=== PATIENT | male | born 1940 | race Caucasian/White ===

== ENCOUNTER 2017-12-21 04:18 | Inpatient (IN) | payer OTHER ==
[~2017-12-21] VITALS: Ht 160 cm; Wt 76.0 kg
[2017-12-21] VITALS (9 sets, daily range): BP systolic 78–130; BP diastolic 50–77; PULSE 50–94; TEMP 36.5–36.9; O2SAT 90–100; BMI 28.9
[2017-12-21] MEDS ORDERED: ONDANSETRON INJ 2 MG/ML 2 ML VIAL IV PRN (05:00)
[2017-12-21] MEDS ORDERED: ACETAMINOPHEN 325 MG TAB PO PRN (05:00)
[2017-12-21] MEDS ORDERED: POLYETHYLENE (MIRALAX) 17 GM PACK PO PRN (05:00)
[2017-12-21] MEDS ORDERED: SODIUM CHLORIDE 0.9% 1000ML 1,000 ML IV SCH (05:45)
[2017-12-21] MEDS ORDERED: PANT40TA PO (05:54)
[2017-12-21] MEDS ORDERED: CLON0.2T PO (05:54)
[2017-12-21] MEDS ORDERED: ALBINS/ INH (05:54)
[2017-12-21] MEDS ORDERED: PRAV80TA2 PO (05:54)
[2017-12-21] MEDS ORDERED: ASPEC81 PO (05:54)
[2017-12-21] MEDS ORDERED: ALBU18002 INH (05:54)
[2017-12-21] MEDS ORDERED: NVLGIPEN SQ (05:54)
[2017-12-21] MEDS ORDERED: CARV12.52 PO (05:54)
[2017-12-21] MEDS ORDERED: TORS10TA14 PO (05:54)
[2017-12-21] MEDS ORDERED: GLUCOSE 40% GEL 15 GM TUBE PO PRN (06:00)
[2017-12-21] MEDS ORDERED: GLUCOSE 10 TABS/TUBE PO PRN (06:00)
[2017-12-21] MEDS ORDERED: DEXTROSE 50% 50 ML SYR IV PRN (06:00)
[2017-12-21] MEDS ORDERED: PANTOprazole INJ 80 MG in DEXTROSE 5% 100ML IV SCH (06:00)
[2017-12-21] MEDS ORDERED: GLUCAGON FOR INJ 1 MG VIAL SQ PRN (06:00)
[2017-12-21] MEDS: PANTOprazole INJ 40 MG in DEXTROSE 5% 100ML IV SCH ×4 (06:03→21:09)
--- NOTE | 2017-12-21 06:31 | History and Physical ---
History & Physical Date & Time of Service: Dec 21, 2017 at 06:07 Chief Complaint: Gi Bleed Primary Care Physician: Robby Stearns M.D. History of Present Illness Source: patient, clinic records, hospital records The patient is a 77-year-old male who presented to the ER ([facility]) with rectal bleeding. He denies any abdominal pain, nausea, or chest pain. He does report some worsening shortness of breath and recently underwent an echocardiogram as outpatient revealing an EF of 60-64%, grade 1 diastolic dysfunction, P AP of 36 mmHg. He reports becoming more dependent on oxygen over the last 3 weeks and is currently using 2 L per nasal cannula. He reports dizziness and lightheadedness as well as generalized weakness and malaise over the past 2-3 weeks. He has a history of pulmonary fibrosis and has been on high -dose steroids chronically. He is currently not taking any steroids. He takes baby aspirin every day but denies other blood thinners. He denies any current change in appetite. Earlier this evening he and his son had a large dinner and when he was saying goodbye he felt the urge to have a large bowel movement he reports being incontinent of bloody stool in the stool did have large clots in it and was mixed dark and bright red blood. He has reported some loose stools once daily for the past 3 weeks but denies chery diarrhea. He reports a history of esophageal bleeding 30 years ago and reports a history of hiatal hernia for which he is on protonix daily. He was recently admitted to [facility] from 10/30-10 15 new onset diabetes that is a result of chronic steroid use. He denies alcohol use. Vital signs in the ER were blood pressure 132/81 with a pulse 92, respirations 87% on 3 L nasal cannula, afebrile. The patient reports he reports occasional chills which are unchanged. He reports more continuous oxygen needs where he was only on it when he ambulated 3-4 weeks ago. His bilingual instructor is Dr. Stearns in [place] his primary care doctor is Dr. Stearns at [facility]. 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 Social History Smoking Status: Former Smoker (30 years ago) Smokeless Tobacco Use: Unknown Alcohol Use: none Drug Use: none Marital Status: Housing status: lives with significant other Occupational Status: retired Immunizations History of Influenza Vaccine: Yes Influenza Vaccine Date: Jul 17, 2017 History of Tetanus Vaccine?: Unknown History of Pneumococcal: Yes Pneumococcal Date: Jun 26, 2016 History of Hepatitis B Vaccine: Unknown Allergies Coded Allergies: Penicillins (Verified Allergy, Unknown, BLISTERS, 12/21/17) Home Medications Scheduled Aspirin (Aspirin EC Low Dose), 81 MG PO DAILY Carvedilol (Coreg), 12.5 MG PO BID Clonidine Hcl (Catapres), 1 TAB PO BID Insulin Aspart (Novolog Flexpen), 0 SQ UD Pantoprazole (Protonix), 40 MG PO DAILY Pravastatin Sodium (Pravastatin Sodium), 80 MG PO DAILY Torsemide (Demadex), 10 MG PO DAILY Scheduled PRN Albuterol Sulf (Proventil 0.083% 2.5MG/3ML), 2.5 MG INH Q4H PRN for sob/wheezing Albuterol Sulfate (Proair Respiclick), 2 PUFFS INH QID PRN for sob/wheezing Review of Systems At least 10 systems were reviewed and negative except as indicated in HPI. Physical Exam Vital Signs Date Time Temp Pulse Resp B/P (MAP) Pulse Ox O2 Delivery O2 Flow Rate FiO2 12/21/17 05:20 69 105/77 (86) 81 88/61 (70) 94 78/50 (59) 12/21/17 04:40 36.9 70 18 118/77 99 Nasal Cannula 2.0 General Appearance: WD/WN, no apparent distress Head: normocephalic, atraumatic Eyes: normal inspection, PERRL, sclerae normal ENT: hearing grossly normal, pharynx normal, + pertinent finding (Mouth appears dry) Neck: supple, no JVD, trachea midline Respiratory/Chest: lungs clear, normal breath sounds, no respiratory distress, no accessory muscle use Cardiovascular: regular rate, rhythm, no edema, no gallop, no JVD, no murmur, normal peripheral pulses Abdomen/GI: normal bowel sounds, non tender, soft, no organomegaly, + pertinent finding (Nondistended) Extremities/Musculoskelatal: normal inspection, no calf tenderness, no pedal edema, normal range of motion 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 1. Acute GI bleeding-patient is orthostatic, was recently on high-dose prednisone chronically, and has weakness and dizziness. Bright red blood more consistent with lower GI bleed however, as a result of these symptoms he was placed on Protonix drip as a precaution. GI consulted. Aspirin, BB, clonidine , and diuretics held. No coagulopathy on lab work. Platelets within normal levels. He consents to blood if needed, CBC in a.m. 1 L IV fluids ordered. Of note patient reports a history of esophageal bleeding 30 years ago and history of hiatal hernia. 2. Shortness of breath in setting of interstitial lung disease-requiring more continuous oxygen use. Chronic coughing, chest x-ray pending. Continue management per outpatient pulmonology. Recent outpatient echo was unremarkable. 3. Steroid-induced diabetes-continue insulin sliding scale with carb coverage while hospitalized 4. Leukocytosis-likely related to recent steroid use. 5. Hypertension-medications held as above in setting of bleed and orthostatic hypotension 6. CKD stage III-at baseline DVT prophylaxis-contraindicated in setting of bleed, SCDs Full code as discussed patient on admission Dis[facility] Advanced Directives Existing Living Will: Yes Existing Power of Console Assembler: Yes Resuscitation Status VTE Prophylaxis Will order VTE Prophylaxis: No Reason for no VTE drug order: Contraindicated Reason no Mechanical VTE Order: Contraindicated
[2017-12-21 06:38] LABS: HEMATOCRIT 32.3 % (42-52); HEMOGLOBIN 10.7 g/dL (14.0-18.0); MEAN CELL VOLUME 99.7 fL (80-100); MEAN CORPUSCULAR HGB CONC 33.1 g/dl (32-36); PLATELET COUNT 260 K/uL (130-400); RED CELL DISTRIBUTION WIDTH CV 16.8 % (11.5-14.5); RED CELL DISTRIBUTION WIDTH SD 60.6 fL (36.4-46.3); WHITE BLOOD COUNT 21.32 K/uL (4.8-10.8)
[2017-12-21 06:55] LABS: CALCIUM 8.5 mg/dl (8.5-10.1); CREATININE 1.59 mg/dl (0.60-1.40); POTASSIUM 4.1 mmol/L (3.5-5.1)
[2017-12-21] MEDS: INSULIN ASPART 100 UNITS/ML 3 ML PEN SC SCH ×4 (07:38→20:14)
[2017-12-21 07:45] LABS: BASO % 0.1 %; BASO ABS # 0.03 K/uL (0-0.2); EOS % 1.3 %; EOS ABS # 0.27 K/uL (0-0.5); IG# 0.34 K/uL (0.00-0.02); LYMPH % 35.3 %; LYMPH ABS # 7.53 K/uL (1.2-3.4); MONO % 10.2 %; MONO ABS # 2.17 K/uL (0.11-0.59); NEUT % 51.5 %; NEUT ABS # 10.98 K/uL (1.4-6.5)
--- NOTE | 2017-12-21 08:15 | DIAGNOSTIC IMAGING REPORT ---
ABDOMEN 2VIEW W/PA CHEST RTN CLINICAL HISTORY: recent GI bleed, hypoxia in setting of ILD pain. Nausea. COMPARISON STUDY: None FINDINGS: Diffuse interstitial changes in the mid to lower lung regions bilaterally. In the absence of prior studies for comparison this is of uncertain chronicity. Pulmonary apices are clear. Bowel pattern suggests a nonobstructive ileus. Moderate amount of fecal material is identified within the colon. IMPRESSION: 1. Nonobstructive ileus. 2. Nonspecific interstitial change in the mid to lower lung regions bilaterally. This may be chronic or inflammatory. Prior study is not available for comparison. The above report was generated using voice recognition software. It may contain grammatical, syntax or spelling errors. Electronically signed by: Manuel Campbell M.D. 12/21/2017 8:14 AM Dictated Date/Time: 12/21/2017 8:11 AM
--- NOTE | 2017-12-21 09:55 | Gastrointestinal Consultation ---
Gastrointestinal Consultation Date of Consultation: Dec 21, 2017 Attending Physician: Dr. Cuadra Consulting Physician: Dr. Hernandez Reason for Consultation: Bright red blood per rectum History of Present Illness Patient is a 77 year old male with a hx of pulmonary fibrosis, on home O2 for chronic hypoxic respiratory failure. He also carries a hx of CKD-3, arotic stenosis, CVD, HTN, obesity and steroid induced DM. He was transferred here from the [facility] with rectal bleeding. He also reports worsening SOB over the past few weeks. The patient tells me that he has been SOB for the past month and [facility]. He was discharged around Nov 21. He continued getting weaker and was working with his PCP attempting to wean off prednisone though having difficulty due to the weakness. Just yesterday, he finished his last dose of prednisone. After eating supper, he felt crampy and was incontinent of a large BM consisting mostly (95%) of liquid red blood. He was taken by ambulance to the [place] ED and he was transferred here (no available beds at [place]). The pt tells me that, at [facility], he experienced about 4 more BMs consisting of the bright red blood in the ED there. He has not had more since arriving here, though he is passing more flatus than usual. He had cramping yesterday that has resolved today. He denies any significant abdominal pain. On arrival, Hb was 10.7, BUN 42 Cr 1.59. We do not have recent prior labs to compare. Abd/chest x-ray with a non obstructive ileus and a moderate amt of colonic fecal retention. 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 Partial right lower lobe lung lobectomy. Oct 2017 2. Carotid artery stent 15 yrs ago. 3. Right kidney stent. 4. 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 Social History Smoking Status: Former Smoker (30 years ago) Drug Use: none Marital Status: Occupation Status: retired Allergies Coded Allergies: Penicillins (Verified Allergy, Unknown, BLISTERS, 12/21/17) Current Medications Home Meds and Scripts Medications Dose Route/Sig Max Daily Dose Days Date Category Dose Instructions Demadex (Torsemide) 10 Mg Tab 10 Mg PO DAILY 12/21/17 Reported Pravastatin Sodium 80 Mg Tab 80 Mg PO DAILY 30 12/21/17 Reported Protonix (Pantoprazole Sodium) 40 Mg Tab 40 Mg PO DAILY 12/21/17 Reported Novolog Flexpen (Insulin Aspart) 100 Units/Ml Inj 0 SQ UD 12/21/17 Reported per sliding scale Catapres (Clonidine Hcl) 0.2 Mg Tab 1 Tab PO BID 30 12/21/17 Reported Coreg (Carvedilol) 12.5 Mg Tab 12.5 Mg PO BID 90 12/21/17 Reported Aspirin EC Low Dose (Aspirin) 81 Mg Ectab 81 Mg PO DAILY 12/21/17 Reported Proventil 0.083% 2.5MG/3ML (Albuterol Sulf) 2.5 Mg/3 Ml Nebu 2.5 Mg INH Q4H PRN 12/21/17 Reported Proair Respiclick (Albuterol Sulfate) 108 Mcg/Act Aer 2 Puffs INH QID PRN 12/21/17 Reported Review of Systems Constitutional: + weakness, No fever, No chills, No sweats, No weight loss Eyes: No eye pain, No redness ENT: No sore throat, No trouble swallowing, No pain on swallowing Respiratory: No cough, No wheezing, No shortness of breath, No dyspnea on exertion Cardiac: No chest pain, No edema, No palpitations Abdomen: + see HPI, + pain (mild, diffuse cramping), + diarrhea (loose stools/ one a day x 1 month; liquid bloody BMs since yesterday), No nausea, No vomiting Male : No dysuria Neuro: No memory loss, No weakness, No numbness/tingling, No vertigo, No balance problems Psych: No depression symptoms, No anxiety, No insomnia Heme: No abnormal bleeding/bruising, No night sweats Endo: No excessive thirst, No excessive urination Skin: No rash, No itch, No new/changing skin lesions, No jaundice Physical Exam Date Time Temp Pulse Resp B/P (MAP) Pulse Ox O2 Delivery O2 Flow Rate FiO2 12/21/17 08:02 36.6 57 16 109/66 (80) 100 Nasal Cannula 3.0 50 97/59 (72) 12/21/17 05:20 69 105/77 (86) 81 88/61 (70) 94 78/50 (59) 12/21/17 04:40 36.9 70 18 118/77 99 Nasal Cannula 2.0 General Appearance: no apparent distress Eyes: normal inspection, EOMI Neck: supple, no adenopathy, thyroid normal Respiratory/Chest: chest non-tender, no accessory muscle use, + crackles ( bilat lower ) Cardiovascular: regular rate, rhythm, no JVD, no murmur Abdomen: normal bowel sounds, non tender, soft, no organomegaly Extremities: normal inspection, no pedal edema, normal capillary refill Neurologic/Psych: alert, normal mood/affect, oriented x 3 Skin: normal color, no jaundice, warm/dry, no rash Laboratory Results Last 24 Hours Test 12/21/17 06:19 White Blood Count 21.32 K/uL Red Blood Count 3.24 M/uL Hemoglobin 10.7 g/dL Hematocrit 32.3 % Mean Corpuscular Volume 99.7 fL Mean Corpuscular Hemoglobin 33.0 pg Mean Corpuscular Hemoglobin Concent 33.1 g/dl Platelet Count 260 K/uL Mean Platelet Volume 10.0 fL Neutrophils (%) (Auto) 51.5 % Lymphocytes (%) (Auto) 35.3 % Monocytes (%) (Auto) 10.2 % Eosinophils (%) (Auto) 1.3 % Basophils (%) (Auto) 0.1 % Neutrophils # (Auto) 10.98 K/uL Lymphocytes # (Auto) 7.53 K/uL Monocytes # (Auto) 2.17 K/uL Eosinophils # (Auto) 0.27 K/uL Basophils # (Auto) 0.03 K/uL RDW Standard Deviation 60.6 fL RDW Coefficient of Variation 16.8 % Immature Granulocyte % (Auto) 1.6 % Immature Granulocyte # (Auto) 0.34 K/uL Hypersegmented Polys OCCASIONAL Smudge Cells PRESENT [facility] Bodies OCCASIONAL Sodium Level 137 mmol/L Potassium Level 4.1 mmol/L Chloride Level 103 mmol/L Carbon Dioxide Level 27 mmol/L Anion Gap 7.0 mmol/L Blood Urea Nitrogen 42 mg/dl Creatinine 1.59 mg/dl Est Creatinine Clear Calc Drug Dose 34.0 ml/min Estimated GFR () 47.2 Estimated GFR (Non- 40.7 BUN/Creatinine Ratio 26.5 Bedside Glucose 180 mg/dl Random Glucose 192 mg/dl Calcium Level 8.5 mg/dl Impression Patient is a 77 year old male with (fairly) painless rectal bleeding, suggestive of diverticular bleeding. Plan 1. Will plan for colonoscopy tomorrow, if no contraindications due to comorbidities (WBC is high but he has been on steroids). I saw and evaluated the patient with Ms Terrazas. The patient is somewhat of a poor historian but able to tell me that he developed acute onset hematochezia yesterday. He did have several episodes of cramping. His last episode of hematochezia was early this morning prior to transfer from [facility]. He denies having fevers chills or sweats. He reports his last colonoscopy was done 18 or 20 years ago. Physical examination No obvious distress, expiratory wheezes and crackles heard Abdomen: Mild left lower quadrant tenderness Impression/Recomendations: Patient presenting with several episodes of hematochezia which seems to have abated since admission. Based on the constellation of symptoms I would wonder about ischemic colitis or perhaps a diverticular hemorrhage. To further evaluate this I would suggest a CT of the abdomen to evaluate for colonic wall thickening, stool for C. difficile and culture. I would also suggest empiric coverage with antibiotics as his white blood cell count is over 20,000. Depending on these results we will likely recommend an outpatient colonoscopy in 4-6 weeks.
[2017-12-21] MEDS ORDERED: ALBUTEROL HFA INHALER 8.5 GM INH PRN (11:00)
[2017-12-21] MEDS ORDERED: OPTIRAY 320 IV PRN (11:30)
[2017-12-21] MEDS: METRONIDAZOLE / NSS 500 MG in PREMIXED NSS 100 ML IV SCH ×2 (12:29→20:21)
--- NOTE | 2017-12-21 13:41 | Progress Note ---
Internal Med Progress Note Date of Service: Dec 21, 2017. Provider Documentation: SUBJECTIVE: The patient was seen and examined He was [facility] with rectal bleeding that has been going on for 2 days He does not have any complaint of epigastric pain and no nausea vomiting. He has been feeling reasonably better since admission He did not have any more episode of rectal bleeding in the hospital. OBJECTIVE: Vital Signs-as noted below Exam: General-no apparent distress Eyes-normal ENT-normal Neck-supple Lungs-decreased breath sounds with fine crackles at the bases Heart-regular' no murmur appreciated Abdomen-benign, mildly tender lower quadrants, bowel sounds present. Extremities-no edema Neuro-alert awake oriented 3. No focal sensory or motor deficit appreciated Lab data as noted below. ASSESSMENT & PLAN: 77-year-old female presents with rectal bleeding. Acute GI bleeding- -admitted to telemetry unit. Remains hemodynamically stable. -Noted to have orthostasis on admission, was recently on high-dose prednisone chronically, and has weakness and dizziness. -Bright red blood more consistent with lower GI bleed however, as a result of these symptoms he was placed on Protonix drip as a precaution. -GI consulted-appreciate input. - Aspirin is on hold. -Of note patient reports a history of esophageal bleeding 30 years ago and history of hiatal hernia. -Clinically better this morning. Hemoglobin remains stable-. Colonoscopy tomorrow. Shortness of breath in setting of interstitial lung disease-requiring more continuous oxygen use. May be contributed by recent decrease in prednisone. Chronic coughing, chest x-ray did not show any evidence of pneumonia and/or CHF. Continue management per outpatient pulmonology. Recent outpatient echo was unremarkable. Steroid-induced diabetes- -continue insulin sliding scale with carb coverage while hospitalized Leukocytosis-likely related to recent steroid use. No evidence of infection. Hypertension-medications held as above in setting of bleed and orthostatic hypotension CKD stage III-at baseline monitor DVT prophylaxis-contraindicated in setting of bleed, SCDs Full code as discussed patient on admission Disposition-telemetry Vital Signs: Date Time Temp Pulse Resp B/P (MAP) Pulse Ox O2 Delivery O2 Flow Rate FiO2 12/21/17 12:02 36.5 64 18 108/62 (77) 95 Nasal Cannula 3.0 64 12/21/17 12:00 Nasal Cannula 2.0 3/12/18 08:02 36.6 57 16 109/66 (80) 100 Nasal Cannula 3.0 50 97/59 (72) 12/21/17 08:00 Nasal Cannula 2.0 12/21/17 05:20 69 105/77 (86) 81 88/61 (70) 94 78/50 (59) 12/21/17 04:40 36.9 70 18 118/77 99 Nasal Cannula 2.0 Lab Results: Results Past 24 Hours Test 12/21/17 06:19 12/21/17 10:58 Range/Units White Blood Count 21.32 4.8-10.8 K/uL Red Blood Count 3.24 4.7-6.1 M/uL Hemoglobin 10.7 14.0-18.0 g/dL Hematocrit 32.3 42-52 % Mean Corpuscular Volume 99.7 80-100 fL Mean Corpuscular Hemoglobin 33.0 25-34 pg Mean Corpuscular Hemoglobin Concent 33.1 32-36 g/dl Platelet Count 260 130-400 K/uL Mean Platelet Volume 10.0 7.4-10.4 fL Neutrophils (%) (Auto) 51.5 % Lymphocytes (%) (Auto) 35.3 % Monocytes (%) (Auto) 10.2 % Eosinophils (%) (Auto) 1.3 % Basophils (%) (Auto) 0.1 % Neutrophils # (Auto) 10.98 1.4-6.5 K/uL Lymphocytes # (Auto) 7.53 1.2-3.4 K/uL Monocytes # (Auto) 2.17 0.11-0.59 K/uL Eosinophils # (Auto) 0.27 0-0.5 K/uL Basophils # (Auto) 0.03 0-0.2 K/uL RDW Standard Deviation 60.6 36.4-46.3 fL RDW Coefficient of Variation 16.8 11.5-14.5 % Immature Granulocyte % (Auto) 1.6 % Immature Granulocyte # (Auto) 0.34 0.00-0.02 K/uL Hypersegmented Polys OCCASIONAL Smudge Cells PRESENT Blood Smear Review [facility] Bodies OCCASIONAL Sodium Level 137 136-145 mmol/L Potassium Level 4.1 3.5-5.1 mmol/L Chloride Level 103 98-107 mmol/L Carbon Dioxide Level 27 21-32 mmol/L Anion Gap 7.0 3-11 mmol/L Blood Urea Nitrogen 42 7-18 mg/dl Creatinine 1.59 0.60-1.40 mg/dl Est Creatinine Clear Calc Drug Dose 34.0 ml/min Estimated GFR () 47.2 Estimated GFR (Non- 40.7 BUN/Creatinine Ratio 26.5 10-20 Bedside Glucose 180 164 70-99 mg/dl Random Glucose 192 70-99 mg/dl Calcium Level 8.5 8.5-10.1 mg/dl
[2017-12-21] MEDS: CIPROFLOXACIN / D5W 400 MG in PREMIXED IN D5W 200 ML IV SCH ×2 (13:59→23:59)
--- NOTE | 2017-12-21 14:36 | DIAGNOSTIC IMAGING REPORT ---
CT SCAN OF THE ABDOMEN AND PELVIS WITH IV CONTRAST CLINICAL HISTORY: Rectal bleeding. COMPARISON STUDY: Abdominal radiographs dated 12/21/2017. TECHNIQUE: Following the IV administration of 94 cc of Optiray 320, CT scan of the abdomen and pelvis is performed from the lung bases to the proximal femora. Images are reviewed in the axial, sagittal, and coronal planes. IV contrast was administered without complication. A dose lowering technique was utilized adhering to the principles of ALARA. CT DOSE: 500.84 mGy.cm FINDINGS: Lung bases: The heart is enlarged and there is a small pericardial effusion. The coronary arteries are densely calcified. A tiny hiatal hernia is observed. Findings a chronic residual lung disease are present at both lung bases. There is subpleural reticulation with extensive groundglass change and traction bronchiectasis. No honeycombing is seen. No superimposed airspace consolidation or pleural effusion is identified. Postoperative changes seen in the right lower lobe. Pneumomediastinum is observed. Liver: The contrast-enhanced liver appears atrophic and heterogeneous in attenuation. There is nodularity of the hepatic surface contour suggesting changes of cirrhosis. There is no intrahepatic biliary ductal dilatation. The hepatic veins and portal veins are patent. Gallbladder: Unremarkable. Spleen: Not identified and presumed surgically absent. Pancreas: There is near complete fatty atrophy of the pancreas. Adrenal glands: Unremarkable. Kidneys: The contrast enhanced kidneys are atrophic and without hydronephrosis. The kidneys enhance symmetrically. Small nonobstructing calculi are noted in each kidney. Scattered renal cysts measure up to 1.6 cm. A stent is noted in the right renal artery. Abdominal vasculature: The abdominal aorta is normal in course and caliber noting moderate to advanced after sclerotic disease. Bowel: There is advanced colonic diverticulosis without CT evidence of acute diverticulitis. No bowel obstruction is seen. The appendix is well-visualized and normal. No colonic wall thickening or edema is identified. Peritoneum: There is no intraperitoneal free air or abdominal ascites. Lymphadenopathy: None. Pelvic viscera: The bladder, prostate, and seminal vesicles are normal as visualized. There is a small fat-containing left inguinal hernia. Skeletal structures: The skeletal structures are osteopenic. Mild lumbosacral spondylosis is observed. Sclerotic change is noted in the sacroiliac joints. No lytic or blastic lesions are seen. IMPRESSION: 1. Pneumomediastinum is identified in the lower chest. This is of indeterminant etiology and significance. 2. There are no acute infectious or inflammatory findings in the abdomen or pelvis. 3. Changes of chronic interstitial lung disease are seen at the lung bases. 4. Cardiomegaly and small pericardial effusion. 5. Advanced colonic diverticulosis without CT evidence of acute diverticulitis. 6. The appearance of the liver suggests early changes of cirrhosis. 7. The spleen is not identified and presumed surgically absent. 8. Small bilateral nonobstructing renal calculi. 9. Additional findings as above. Electronically signed by: Rodo Magallon M.D. 12/21/2017 2:35 PM Dictated Date/Time: 12/21/2017 2:26 PM
[2017-12-21] MEDS: PRAVASTATIN SOD 40 MG TAB PO SCH (17:24)
[2017-12-21] MEDS: CARVEDILOL 12.5 MG TAB PO SCH (20:20)
[2017-12-22] VITALS (10 sets, daily range): BP systolic 104–133; BP diastolic 60–83; PULSE 74–116; TEMP 36.8–37.1; O2SAT 91–99; Ht 160 cm; Wt 76.0 kg
[2017-12-22] MEDS: PANTOprazole INJ 40 MG in DEXTROSE 5% 100ML IV SCH ×5 (02:28→22:58)
[2017-12-22] MEDS: METRONIDAZOLE / NSS 500 MG in PREMIXED NSS 100 ML IV SCH ×3 (04:15→20:08)
[2017-12-22] MEDS: ALBUTEROL 0.083% NEBU SOLN 3 ML VIAL INH PRN (05:36)
[2017-12-22 05:48] LABS: HEMATOCRIT 31.8 % (42-52); HEMOGLOBIN 10.8 g/dL (14.0-18.0); MEAN CELL VOLUME 97.2 fL (80-100); MEAN PLATELET VOLUME 9.7 fL (7.4-10.4); PLATELET COUNT 261 K/uL (130-400); RED CELL DISTRIBUTION WIDTH CV 16.6 % (11.5-14.5); RED CELL DISTRIBUTION WIDTH SD 58.7 fL (36.4-46.3); WHITE BLOOD COUNT 25.02 K/uL (4.8-10.8)
[2017-12-22 06:37] LABS: CALCIUM 8.5 mg/dl (8.5-10.1); CREATININE 1.14 mg/dl (0.60-1.40); POTASSIUM 3.9 mmol/L (3.5-5.1)
[2017-12-22 06:38] LABS: PHOSPHORUS 2.3 mg/dl (2.5-4.9)
[2017-12-22] MEDS: CARVEDILOL 12.5 MG TAB PO SCH ×2 (08:55→20:13)
[2017-12-22] MEDS: INSULIN ASPART 100 UNITS/ML 3 ML PEN SC SCH ×4 (08:55→20:58)
--- NOTE | 2017-12-22 10:03 | Gastroenterology Progress Note ---
Progress Note Date of Service: Dec 22, 2017 Subjective Pt evaluation today including: conversation w/ patient, physical exam, chart review, lab review, review of studies, review of inpatient medication list Mr. Pelaez is a 77 yr old male with pulmonary fibrosis who was admitted on for rectal bleeding. Today, Hb 10.9, stable from yesterday (w/o transfusion). On brown BM this morning. Liquid, C-diff is pending. No abdominal pain. CT yesterday with diverticulosis, no diverticulitis. Review of Systems Constitutional: No fever ENT: No hearing loss Respiratory: + shortness of breath (chronic), No cough Cardiac: No chest pain Abdomen: + see HPI, + diarrhea, + GI bleeding (resolved), No pain, No nausea, No vomiting, No constipation Musculoskeletal: No joint pain Male : No dysuria Neuro: No memory loss Psych: No depression symptoms Heme: No abnormal bleeding/bruising Endo: No fatigue Skin: No rash Medications Current Inpatient Medications Medications (Trade) Dose Ordered Sig/Aure Route Start Time Stop Time Status Last Admin Dose Admin Acetaminophen (Tylenol Tab) 650 mg Q4H PRN PO 12/21/17 05:00 01/20/18 04:59 Ondansetron HCl (Zofran Inj) 4 mg Q6H PRN IV 12/21/17 05:00 01/20/18 04:59 Polyethylene (Miralax Powder Packet) 17 gm DAILY PRN PO 12/21/17 05:00 01/20/18 04:59 Pantoprazole Sodium 40 mg/ Dextrose 100 ml @ 20 mls/hr Q5H IV 12/21/17 06:15 01/20/18 06:14 12/22/17 07:07 20 MLS/HR Insulin Aspart (novoLOG ASPART) SLIDING SCALE If C... ACHS SC 12/21/17 07:00 01/20/18 06:59 12/21/17 17:26 3 UNITS Glucose (Glucose 40% Gel) 15-30 GRAMS 15 GRAMS... UD PRN PO 12/21/17 06:00 01/20/18 05:59 Glucose (Glucose Chew Tab) 4-8 Tablets 4 Tabl... UD PRN PO 12/21/17 06:00 01/20/18 05:59 Dextrose (Dextrose 50% 50ML Syringe) 25-50ML OF 50% DW IV FOR... UD PRN IV 12/21/17 06:00 01/20/18 05:59 Glucagon (Glucagon Inj) 1 mg UD PRN SQ 12/21/17 06:00 01/20/18 05:59 Pravastatin Sodium (Pravachol Tab) 80 mg DAILY@17 PO 12/21/17 17:00 01/20/18 16:59 12/21/17 17:24 80 MG Albuterol Sulfate (Ventolin 0.083% 2.5MG/3ML Neb) 2.5 mg Q4H PRN INH 12/21/17 10:45 01/20/18 10:44 12/22/17 05:36 2.5 MG Carvedilol (Coreg Tab) 12.5 mg BID PO 12/21/17 21:00 01/20/18 20:59 12/22/17 08:55 12.5 MG Albuterol (Proair Hfa) 2 puffs QID PRN INH 12/21/17 11:00 01/20/18 10:59 Ciprofloxacin/ Dextrose 400 mg/ Prmx 200 ml @ 100 mls/hr Q12H IV 12/21/17 12:00 12/31/17 11:59 12/21/17 23:59 100 MLS/HR Metronidazole 500 mg/Prmx 100 ml @ 100 mls/hr Q8H IV 12/21/17 12:00 12/31/17 11:59 12/22/17 04:15 100 MLS/HR Ioversol (Optiray 320) 125 ml UD PRN IV 12/21/17 11:30 12/25/17 11:29 Objective Vital Signs Date Time Temp Pulse Resp B/P (MAP) Pulse Ox O2 Delivery O2 Flow Rate FiO2 12/22/17 08:00 Nasal Cannula 12/22/17 07:44 37.1 91 22 133/71 (91) 98 Nasal Cannula 3.0 12/22/17 05:37 86 14 96 Nasal Cannula 3.0 12/22/17 04:14 36.8 77 24 123/72 (89) 98 Nasal Cannula 3.0 12/22/17 04:00 92 Room Air 12/22/17 00:01 92 Room Air 12/21/17 23:22 36.7 62 20 130/74 (92) 98 Nasal Cannula 4.0 12/21/17 20:00 92 Room Air 12/21/17 19:20 36.5 55 20 106/68 (81) 96 Nasal Cannula 3.0 12/21/17 16:00 92 Room Air 12/21/17 15:35 36.6 64 22 113/61 (78) 90 Nasal Cannula 3.0 12/21/17 12:02 36.5 64 18 108/62 (77) 95 Nasal Cannula 3.0 64 12/21/17 12:00 Nasal Cannula 2.0 Physical Exam General Appearance: no apparent distress ENT: pharynx normal Neck: thyroid normal, no JVD Respiratory/Chest: + crackles (few, fine at the bases) Cardiovascular: regular rate, rhythm, no JVD, no murmur Abdomen: non tender, soft Extremities: normal inspection, no pedal edema Neurologic/Psych: alert, normal mood/affect, oriented x 3 Skin: normal color, no jaundice Laboratory Results Last 24 Hours Test 12/21/17 10:58 12/21/17 19:48 12/22/17 05:30 12/22/17 06:20 Bedside Glucose 164 mg/dl 107 mg/dl 123 mg/dl White Blood Count 25.02 K/uL Red Blood Count 3.27 M/uL Hemoglobin 10.8 g/dL Hematocrit 31.8 % Mean Corpuscular Volume 97.2 fL Mean Corpuscular Hemoglobin 33.0 pg Mean Corpuscular Hemoglobin Concent 34.0 g/dl RDW Standard Deviation 58.7 fL RDW Coefficient of Variation 16.6 % Platelet Count 261 K/uL Mean Platelet Volume 9.7 fL Sodium Level 134 mmol/L Potassium Level 3.9 mmol/L Chloride Level 103 mmol/L Carbon Dioxide Level 22 mmol/L Anion Gap 9.0 mmol/L Blood Urea Nitrogen 22 mg/dl Creatinine 1.14 mg/dl Est Creatinine Clear Calc Drug Dose 47.4 ml/min Estimated GFR () 70.5 Estimated GFR (Non- 60.8 BUN/Creatinine Ratio 19.3 Random Glucose 126 mg/dl Estimated Average Glucose 240 mg/dl Hemoglobin A1c 10.0 % Calcium Level 8.5 mg/dl Phosphorus Level 2.3 mg/dl Magnesium Level 1.8 mg/dl Assessment and Plan Mr. Pelaez is a 77 yr old male who experienced self limited, painless, rectal bleeding, most likely diverticular. Plan: 1. Recommend OP colonoscopy. Pt does not wish to undergo colonoscopy, stating that if he were to have colon cancer, that because of his age and his pulmonary fibrosis, he would not pursue treatment. 2. Regarding question of early cirrhosis on CT, Cirrhosis and complications were explained in detail. Recommend fibroscan for question of early cirrhosis. Pt is in [place] for a pulmonary appt on this Thursday. I will call and see if hepatology can accommodate a fibroscan then. If not, another appt will be offered to him. However, due to difficulty making trips as he gets SOB with any exertion, he may decide not to undergo fibroscan. I saw and evaluated the patient. The patient is presently not interested in pursuing a colonoscopy. I would suggest completion of a 7 day course of antibiotics for possible ischemic colitis given his elevated white blood cell count. The patient will follow with our office as needed. He was have also found to have evidence of nodularity in the liver. Given his history we certainly could pursue hepatic and last sonography to see if there is evidence of significant fibrosis in the liver. Based on his medical history is an unlikely candidate for any vaginal procedures. Please call with any questions or concerns GI to sign out for the present time
--- NOTE | 2017-12-22 12:20 | DIAGNOSTIC IMAGING REPORT ---
(CHEST) THORAX WITHOUT CT DOSE: 406.37 mGy.cm HISTORY: Pneumomediastinum pneumomediastinum? TECHNIQUE: Multiaxial CT images of the chest were performed without contrast. A dose lowering technique was utilized adhering to the principles of ALARA. COMPARISON: None. FINDINGS: Diffuse interstitial and/or fibrotic change throughout both hemithoraces. This predominates in the mid to lower lung regions bilaterally. There are no consolidative infiltrates. There is no significant pleural effusion. There is evidence for main mid to superior pneumomediastinum. Several small air bubbles are identified in the lower right cervical region with the bulk of the air within the anterior mediastinal regions. No evidence for pneumopericardium. Study is negative for pneumothorax. Heart is mildly enlarged. Calcification of the coronary vasculature. IMPRESSION: 1. Anterior pneumomediastinum. 2. Trace amount of air extends to the lower right cervical region. 3. Extensive fibrotic and interstitial change throughout both hemithoraces. The above report was generated using voice recognition software. It may contain grammatical, syntax or spelling errors. Electronically signed by: Manuel Campbell M.D. 12/22/2017 12:18 PM Dictated Date/Time: 12/22/2017 12:15 PM
[2017-12-22] MEDS: CIPROFLOXACIN / D5W 400 MG in PREMIXED IN D5W 200 ML IV SCH (13:44)
--- NOTE | 2017-12-22 16:16 | Medical Consult ---
Consultation Note Date of Service Dec 22, 2017. Consultation Note Consult Dictated #[id number]
--- NOTE | 2017-12-22 16:34 | CONSULTATION REPORT ---
DATE OF CONSULTATION: 12/22/2017 SURGICAL CONSULTATION REASON FOR CONSULTATION: Pneumomediastinum. HISTORY OF PRESENT ILLNESS: This is a 77-year-old male who went to the Emergency Department at an outside facility where he noted he had rectal bleeding and the patient was ultimately transferred to [facility] for further care. I asked the patient about his rectal bleeding and he said that this was painless. He did not have any nausea or vomiting. He has not had any recent fevers, shakes, or chills. The patient was transferred to [facility] where the patient was stabilized. A colonoscopy was initially recommended; however, the patient did not wish to undergo this and an outpatient colonoscopy will be considered. As part of the patient's evaluation, the patient did have an abdominal and pelvic CT scan, which did show concern for pneumomediastinum. This was therefore followed up with a CT scan of the patient's chest where the patient was noted to have a pneumomediastinum in the anterior portion with trace extending into the lower right cervical region, fibrotic changes were noted through the patient's lungs. At the time of my visit, I did question the patient on numerous items, he says he has not had any falls, head injuries, visual changes, tinnitus or sore throat. He denies any neck pain and does not have any chest pain. He denies any fever, shakes, or chills. He does note that he has a chronic cough and does cough forcefully at times. He says that he has chronic shortness of breath and he notes that this is slightly worse than usual and he does use oxygen at home. He denies any abdominal pain. He denies any nausea, vomiting or retching. He did have painless bright red blood per rectum. He denies any DVT or PE. He denies anxiety or depression. In addition to the CT scan findings, the patient has had labs and most recent white blood cell count is 25.0, hemoglobin and hematocrit are 10.8 and 31.8 and platelet count was within normal range. Chemistry profile showed sodium is 134, potassium and creatinine are within the normal range. His magnesium is noted to be normal as well. PAST MEDICAL HISTORY: Includes the followin. History of stroke. 2. Chronic hypoxemic respiratory failure. 3. Stage III chronic kidney disease. 4. Hypertension. 5. Interstitial lung disease. 6. History of splenic abscess. 7. Diabetes. ALLERGIES: INCLUDE PENICILLIN. OUTPATIENT MEDICATION REGIMEN: Includes the followin. Albuterol as needed. 2. Aspirin 81 mg daily. 3. Coreg 12.5 mg twice daily. 4. Clonidine 0.2 mg twice daily. 5. NovoLog sliding scale insulin. 6. Pravachol 80 mg daily. 7. Protonix 40 mg daily. 8. Demadex 10 mg daily. 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 FAMILY HISTORY: The patient does not know family history of premature coronary artery disease. REVIEW OF SYSTEMS: See above. PHYSICAL EXAMINATION: VITAL SIGNS: The patient is afebrile with temperature 36.8, pulse 74 and regular, respirations 23 and unlabored, blood pressure 123/83, pulse ox 94% on room air. SKIN: Warm with good turgor. GENERAL: He is alert, oriented x3 in no distress. HEENT: Head is atraumatic, normocephalic. EYES: Pupils equal, round react to light and accommodation. Extraocular motions are intact. EARS: Auditory acuity is grossly intact. NOSE: Nasal patency was intact. Sinuses are nontender. MOUTH: Moist without exudates. NECK: Supple. There is no JVD noted. I did not appreciate any crepitus or subQ air in his neck in the anterior or posterior regions. CARDIOVASCULAR: He had regular rate and rhythm. LUNGS: Revealed occasional crackles bilaterally. He was not using accessory muscles to aid in respirations. I palpated his chest wall on the lateral sides anteriorly and posteriorly and did not appreciate any crepitus or subQ air. Also of note, there is no subQ air noted in his face. ABDOMEN: Soft and nontender. EXTREMITIES: Revealed no cyanosis or edema. NEUROLOGIC: Revealed cranial nerves II through XII are grossly intact. No focal deficits are noted. DIAGNOSTIC DATA: As noted above. IMPRESSION: A 77-year-old male with pneumomediastinum. PLAN: The patient's pneumomediastinum is an incidental finding on his imaging. This is likely due to his chronic interstitial lung disease as well as coughing which may have caused a ruptured bleb or bleb causing the pneumomediastinum. It is noteworthy to mention that the pneumomediastinum does not appear to be adjacent in the area of his esophagus, making an esophageal injury an unlikely cause of this. It is noteworthy to mention that the patient is nontoxic at this time and is in no distress. We will follow his pneumomediastinum with serial chest x-rays. Further recommendations will be made based on future imaging studies as well as the patient's clinical course as it unfolds and additional recommendations will be forthcoming.
--- NOTE | 2017-12-22 17:14 | Progress Note ---
Internal Med Progress Note Date of Service: Dec 22, 2017. Provider Documentation: SUBJECTIVE: resting comfortably afebrile no more bleeding denies chest pain or sob no vomiting has cough OBJECTIVE: Vital Signs-as noted below Exam: General-alert and oriented. Not in distress ENT-Normal hearing Neck-no neck masses Lungs-cta b/l no wheezing or crackles Heart-S1 and S2 heard regular rate and rhythm no murmurs Abdomen-Soft bowel sounds present non tender no distension Extremities-no edema no erythema Neuro-alert and awake moves extremities Lab data as noted below. ASSESSMENT & PLAN: 77-year-old female presents with rectal bleeding. Acute GI bleeding- presented with rectal bleeding stopped now hb stable at 10.7 ct scan shows diverticulosis mostly diverticular bleed but stopped now patient refused colonoscopy appreciate Gi inputs continue to monitor Shortness of breath in setting of interstitial lung disease-requiring more continuous oxygen use. May be contributed by recent decrease in prednisone. CXR unremarkable To Continue management per outpatient pulmonology. Recent outpatient echo was unremarkable. 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 possible ischemic colitis as per Gi to treat with cipro and Flagyl for one week Hypertension- on coreg will monitor. CKD stage III-at baseline monitor DVT prophylaxis-contraindicated in setting of bleed, SCDs Full code as discussed patient on admission Disposition- monitor in tele DISPOSITION to be determined Vital Signs: Date Time Temp Pulse Resp B/P (MAP) Pulse Ox O2 Delivery O2 Flow Rate FiO2 12/22/17 16:00 Nasal Cannula 12/22/17 15:40 36.8 74 23 123/83 (96) 94 12/22/17 12:09 36.8 89 24 117/83 (94) 99 Room Air 12/22/17 12:00 Nasal Cannula 12/22/17 08:00 Nasal Cannula 12/22/17 07:44 37.1 91 22 133/71 (91) 98 Nasal Cannula 3.0 12/22/17 05:37 86 14 96 Nasal Cannula 3.0 12/22/17 04:14 36.8 77 24 123/72 (89) 98 Nasal Cannula 3.0 12/22/17 04:00 92 Room Air 12/22/17 00:01 92 Room Air 12/21/17 23:22 36.7 62 20 130/74 (92) 98 Nasal Cannula 4.0 12/21/17 20:00 92 Room Air 12/21/17 19:20 36.5 55 20 106/68 (81) 96 Nasal Cannula 3.0 Lab Results: Results Past 24 Hours Test 12/21/17 19:48 12/22/17 05:30 12/22/17 06:20 12/22/17 11:29 Range/Units Bedside Glucose 107 123 198 70-99 mg/dl White Blood Count 25.02 4.8-10.8 K/uL Red Blood Count 3.27 4.7-6.1 M/uL Hemoglobin 10.8 14.0-18.0 g/dL Hematocrit 31.8 42-52 % Mean Corpuscular Volume 97.2 80-100 fL Mean Corpuscular Hemoglobin 33.0 25-34 pg Mean Corpuscular Hemoglobin Concent 34.0 32-36 g/dl RDW Standard Deviation 58.7 36.4-46.3 fL RDW Coefficient of Variation 16.6 11.5-14.5 % Platelet Count 261 130-400 K/uL Mean Platelet Volume 9.7 7.4-10.4 fL Sodium Level 134 136-145 mmol/L Potassium Level 3.9 3.5-5.1 mmol/L Chloride Level 103 98-107 mmol/L Carbon Dioxide Level 22 21-32 mmol/L Anion Gap 9.0 3-11 mmol/L Blood Urea Nitrogen 22 7-18 mg/dl Creatinine 1.14 0.60-1.40 mg/dl Est Creatinine Clear Calc Drug Dose 47.4 ml/min Estimated GFR () 70.5 Estimated GFR (Non- 60.8 BUN/Creatinine Ratio 19.3 10-20 Random Glucose 126 70-99 mg/dl Estimated Average Glucose 240 mg/dl Hemoglobin A1c 10.0 4.5-5.6 % Calcium Level 8.5 8.5-10.1 mg/dl Phosphorus Level 2.3 2.5-4.9 mg/dl Magnesium Level 1.8 1.8-2.4 mg/dl Test 12/22/17 16:05 Range/Units Bedside Glucose 173 70-99 mg/dl Microbiology Results 12/22/17 C.difficile Toxin B Gene (PCR) - Final, Complete No C. difficile toxin B gene detected
[2017-12-22] MEDS: PRAVASTATIN SOD 40 MG TAB PO SCH (17:27)
[2017-12-23] VITALS (11 sets, daily range): BP systolic 101–159; BP diastolic 61–85; PULSE 74–107; TEMP 36.6–37.3; O2SAT 94–99
[2017-12-23] MEDS: CIPROFLOXACIN / D5W 400 MG in PREMIXED IN D5W 200 ML IV SCH ×3 (00:20→23:40)
[2017-12-23] MEDS: PANTOprazole INJ 40 MG in DEXTROSE 5% 100ML IV SCH ×5 (04:20→23:39)
[2017-12-23] MEDS: METRONIDAZOLE / NSS 500 MG in PREMIXED NSS 100 ML IV SCH ×3 (04:21→21:07)
[2017-12-23 07:16] LABS: ALBUMIN 2.3 gm/dl (3.4-5.0); TOTAL PROTEIN 5.9 gm/dl (6.4-8.2)
[2017-12-23 08:17] LABS: HEMATOCRIT 31.7 % (42-52); HEMOGLOBIN 10.4 g/dL (14.0-18.0); MEAN CELL VOLUME 99.7 fL (80-100); MEAN CORPUSCULAR HEMOGLOBIN 32.7 pg (25-34); MEAN CORPUSCULAR HGB CONC 32.8 g/dl (32-36); MEAN PLATELET VOLUME 9.9 fL (7.4-10.4); NUCLEATED RED BLOOD CELL ABS 0.02 K/uL (0-0); PLATELET COUNT 257 K/uL (130-400); RED CELL DISTRIBUTION WIDTH CV 16.4 % (11.5-14.5); RED CELL DISTRIBUTION WIDTH SD 59.4 fL (36.4-46.3); WHITE BLOOD COUNT 22.27 K/uL (4.8-10.8)
[2017-12-23] MEDS: CARVEDILOL 12.5 MG TAB PO SCH ×2 (08:47→21:07)
[2017-12-23] MEDS: INSULIN ASPART 100 UNITS/ML 3 ML PEN SC SCH ×4 (08:50→21:00)
[2017-12-23 08:59] LABS: CALCIUM 8.3 mg/dl (8.5-10.1); CREATININE 1.26 mg/dl (0.60-1.40); POTASSIUM 3.6 mmol/L (3.5-5.1)
--- NOTE | 2017-12-23 09:10 | Progress Note ---
Progress Note Date of Service Dec 23, 2017. Progress Note Mr. Pelaez was evaluated this morning. We were asked to see him as he had a pneumomediastinum with air mostly in the retrosternal area in front of the heart. Does not appear to be around the esophagus at all. Patient has persistent cough due to his probable pulmonary fibrosis. He presented with a GI bleed. He has no crepitus today. He has no discomfort. I think this is a benign condition and I would not be concerned about this. I certainly would not keep him in the hospital because of this finding on CT.
[2017-12-23 09:20] LABS: BASO % 0.2 %; BASO ABS # 0.05 K/uL (0-0.2); EOS ABS # 0.45 K/uL (0-0.5); IG# 0.24 K/uL (0.00-0.02); LYMPH % 32.2 %; LYMPH ABS # 7.16 K/uL (1.2-3.4); MONO % 14.6 %; MONO ABS # 3.26 K/uL (0.11-0.59); NEUT % 49.9 %; NEUT ABS # 11.11 K/uL (1.4-6.5)
--- NOTE | 2017-12-23 09:52 | Gastroenterology Progress Note ---
Progress Note Date of Service: Dec 23, 2017 Subjective Pt evaluation today including: conversation w/ patient, physical exam, chart review, lab review, review of studies, review of inpatient medication list Mr. Pelaez is a 77 yr old male admitted for rectal bleeding, in the setting of pulmonary fibrosis. About 5 bloody BMs prior to arrival here on 12/21/17. Hb 13 a few weeks ago, 10 ( w/o transfusions) this morning which is stable x 3 days. However, today with rectal bleeding again: two moderate sized liquid bright red BMs (occurring after the morning Hb draw). Today, cramping lower abdomen discomfort, worse prior to the BMs, improved after. No severe abdominal pain. Resp: SOB with exertion to sit up in bed with OT and put his socks on. No cough. O2 on by NC at 2L/min. Card: HR 109 with the same exertion. No CP. Review of Systems Constitutional: No fever ENT: No hearing loss Respiratory: + dyspnea on exertion, No cough Cardiac: No chest pain Abdomen: + see HPI, + pain, + diarrhea, + GI bleeding, No nausea, No vomiting, No constipation Male : No dysuria Neuro: No memory loss Psych: No depression symptoms Heme: No abnormal bleeding/bruising Endo: No fatigue Skin: No rash Medications Current Inpatient Medications Medications (Trade) Dose Ordered Sig/Aure Route Start Time Stop Time Status Last Admin Dose Admin Acetaminophen (Tylenol Tab) 650 mg Q4H PRN PO 12/21/17 05:00 01/20/18 04:59 Ondansetron HCl (Zofran Inj) 4 mg Q6H PRN IV 12/21/17 05:00 01/20/18 04:59 Polyethylene (Miralax Powder Packet) 17 gm DAILY PRN PO 12/21/17 05:00 01/20/18 04:59 Pantoprazole Sodium 40 mg/ Dextrose 100 ml @ 20 mls/hr Q5H IV 12/21/17 06:15 01/20/18 06:14 12/23/17 08:47 20 MLS/HR Insulin Aspart (novoLOG ASPART) SLIDING SCALE If C... ACHS SC 12/21/17 07:00 01/20/18 06:59 12/23/17 08:50 2 UNITS Glucose (Glucose 40% Gel) 15-30 GRAMS 15 GRAMS... UD PRN PO 12/21/17 06:00 01/20/18 05:59 Glucose (Glucose Chew Tab) 4-8 Tablets 4 Tabl... UD PRN PO 12/21/17 06:00 01/20/18 05:59 Dextrose (Dextrose 50% 50ML Syringe) 25-50ML OF 50% DW IV FOR... UD PRN IV 12/21/17 06:00 01/20/18 05:59 Glucagon (Glucagon Inj) 1 mg UD PRN SQ 12/21/17 06:00 01/20/18 05:59 Pravastatin Sodium (Pravachol Tab) 80 mg DAILY@17 PO 12/21/17 17:00 01/20/18 16:59 12/22/17 17:27 80 MG Albuterol Sulfate (Ventolin 0.083% 2.5MG/3ML Neb) 2.5 mg Q4H PRN INH 12/21/17 10:45 01/20/18 10:44 12/22/17 05:36 2.5 MG Carvedilol (Coreg Tab) 12.5 mg BID PO 12/21/17 21:00 01/20/18 20:59 12/23/17 08:47 12.5 MG Albuterol (Proair Hfa) 2 puffs QID PRN INH 12/21/17 11:00 01/20/18 10:59 Ciprofloxacin/ Dextrose 400 mg/ Prmx 200 ml @ 100 mls/hr Q12H IV 12/21/17 12:00 12/31/17 11:59 12/23/17 00:20 100 MLS/HR Metronidazole 500 mg/Prmx 100 ml @ 100 mls/hr Q8H IV 12/21/17 12:00 12/31/17 11:59 12/23/17 04:21 100 MLS/HR Ioversol (Optiray 320) 125 ml UD PRN IV 12/21/17 11:30 12/25/17 11:29 Objective Vital Signs Date Time Temp Pulse Resp B/P (MAP) Pulse Ox O2 Delivery O2 Flow Rate FiO2 12/23/17 08:00 Nasal Cannula 3.0 12/23/17 07:52 37.1 99 20 130/85 (100) 95 Nasal Cannula 3.0 12/23/17 04:18 37.1 75 21 119/61 (80) 99 Nasal Cannula 3.0 Humidified Oxygen 12/23/17 04:00 99 Nasal Cannula 3.0 12/23/17 00:16 37.3 74 23 118/68 (85) 97 Nasal Cannula 3.0 Humidified Oxygen 12/23/17 00:00 97 Nasal Cannula 3.0 12/22/17 20:12 91 133/83 (100) 12/22/17 20:00 91 Nasal Cannula 12/22/17 18:50 37.0 116 34 104/60 (75) 91 Nasal Cannula 3.0 12/22/17 16:00 Nasal Cannula 12/22/17 15:40 36.8 74 23 123/83 (96) 94 12/22/17 12:09 36.8 89 24 117/83 (94) 99 Room Air 12/22/17 12:00 Nasal Cannula Physical Exam General Appearance: no apparent distress Neck: thyroid normal, no JVD Respiratory/Chest: lungs clear, + decreased breath sounds (diminished at bases) Cardiovascular: no murmur, + tachycardia (mild) Abdomen: non tender, soft Extremities: non-tender Neurologic/Psych: alert, normal mood/affect, oriented x 3 Skin: no jaundice Laboratory Results Last 24 Hours Test 12/22/17 11:29 12/22/17 16:05 12/22/17 20:51 12/23/17 06:29 Bedside Glucose 198 mg/dl 173 mg/dl 151 mg/dl White Blood Count 22.27 K/uL Red Blood Count 3.18 M/uL Hemoglobin 10.4 g/dL Hematocrit 31.7 % Mean Corpuscular Volume 99.7 fL Mean Corpuscular Hemoglobin 32.7 pg Mean Corpuscular Hemoglobin Concent 32.8 g/dl Platelet Count 257 K/uL Mean Platelet Volume 9.9 fL Neutrophils (%) (Auto) 49.9 % Lymphocytes (%) (Auto) 32.2 % Monocytes (%) (Auto) 14.6 % Eosinophils (%) (Auto) 2.0 % Basophils (%) (Auto) 0.2 % Neutrophils # (Auto) 11.11 K/uL Lymphocytes # (Auto) 7.16 K/uL Monocytes # (Auto) 3.26 K/uL Eosinophils # (Auto) 0.45 K/uL Basophils # (Auto) 0.05 K/uL RDW Standard Deviation 59.4 fL RDW Coefficient of Variation 16.4 % Immature Granulocyte % (Auto) 1.1 % Immature Granulocyte # (Auto) 0.24 K/uL Nucleated RBC Absolute Count (auto) 0.02 K/uL Nucleated Red Blood Cells % 0.1 % Hypersegmented Polys 1+ Hypochromasia PRESENT Poikilocytosis PRESENT Anisocytosis PRESENT Total Bilirubin 0.5 mg/dl Direct Bilirubin 0.2 mg/dl Aspartate Amino Transf (AST/SGOT) 22 U/L Alanine Aminotransferase (ALT/SGPT) 23 U/L Alkaline Phosphatase 66 U/L Total Protein 5.9 gm/dl Albumin 2.3 gm/dl Test 12/23/17 06:54 12/23/17 08:22 Bedside Glucose 142 mg/dl Sodium Level 135 mmol/L Potassium Level 3.6 mmol/L Chloride Level 103 mmol/L Carbon Dioxide Level 25 mmol/L Anion Gap 7.0 mmol/L Blood Urea Nitrogen 12 mg/dl Creatinine 1.26 mg/dl Est Creatinine Clear Calc Drug Dose 43.3 ml/min Estimated GFR () 62.5 Estimated GFR (Non- 53.9 BUN/Creatinine Ratio 9.7 Random Glucose 171 mg/dl Calcium Level 8.3 mg/dl Magnesium Level 1.9 mg/dl Assessment and Plan Mr. Pelaez is a 77 yr old male who experienced a recurrence of rectal bleeding. CT w/o colitis, thus this likely represents diverticular bleeding. Plan: 1.Because bleeding recurred and because pt needs a lot of support (help with ambulation etc) to complete a colonoscopy prep, pt now agrees to colonoscopy as an IP here during this admission. I will discuss with anesthesia. He is higher than usual risk for anesthesia due to pulmonary fibrosis, though he seems at his baseline from a pulmonary status. 2. Clear liquid diet. I saw and evaluated the patient. Given the recurrent bleeding we will proceed with IP colonoscopy.
--- NOTE | 2017-12-23 14:27 | Progress Note ---
Internal Med Progress Note Date of Service: Dec 23, 2017. Provider Documentation: SUBJECTIVE: resting comfortably had couple of bloody bowel movements today has mild abdominal discomfort no nausea no sob or chest pain hemodynamics stable OBJECTIVE: Vital Signs-as noted below Exam: General-alert and oriented. Not in distress ENT-Normal hearing Neck-no neck masses Lungs-cta b/l no wheezing or crackles Heart-S1 and S2 heard regular rate and rhythm no murmurs Abdomen-Soft bowel sounds present mild diffuse tender no distension Extremities-no edema no erythema Neuro-alert and awake moves extremities Lab data as noted below. ASSESSMENT & PLAN: 77-year-old female presents with rectal bleeding. Acute GI bleeding- presented with rectal bleeding hb stable at 10.7 ct scan shows diverticulosis mostly diverticular bleed but stopped as of yesterday patient refused colonoscopy GI on board had couple of bloody bowel movements today hb 10.4 patient now agrees for colonoscopy Shortness of breath in setting of interstitial lung disease-requiring more continuous oxygen use. May be contributed by recent decrease in prednisone. CXR unremarkable To Continue management per outpatient pulmonology. 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 possible ischemic colitis as per Gi to treat with cipro and Flagyl for one week Hypertension- on coreg will monitor. CKD stage III-at baseline monitor DVT prophylaxis-contraindicated in setting of bleed, SCDs Full code as discussed patient on admission Disposition- monitor in tele DISPOSITION to be determined Vital Signs: Date Time Temp Pulse Resp B/P (MAP) Pulse Ox O2 Delivery O2 Flow Rate FiO2 12/23/17 12:00 Nasal Cannula 3.0 12/23/17 11:04 36.6 107 18 101/66 (78) 94 Nasal Cannula 3.0 12/23/17 10:16 Nasal Cannula 3.0 12/23/17 08:00 Nasal Cannula 3.0 12/23/17 07:52 37.1 99 20 130/85 (100) 95 Nasal Cannula 3.0 12/23/17 04:18 37.1 75 21 119/61 (80) 99 Nasal Cannula 3.0 Humidified Oxygen 12/23/17 04:00 99 Nasal Cannula 3.0 12/23/17 00:16 37.3 74 23 118/68 (85) 97 Nasal Cannula 3.0 Humidified Oxygen 12/23/17 00:00 97 Nasal Cannula 3.0 12/22/17 20:12 91 133/83 (100) 12/22/17 20:00 91 Nasal Cannula 12/22/17 18:50 37.0 116 34 104/60 (75) 91 Nasal Cannula 3.0 12/22/17 16:00 Nasal Cannula 12/22/17 15:40 36.8 74 23 123/83 (96) 94 Lab Results: Results Past 24 Hours Test 12/22/17 16:05 12/22/17 20:51 12/23/17 06:29 12/23/17 06:54 Range/Units Bedside Glucose 173 151 142 70-99 mg/dl White Blood Count 22.27 4.8-10.8 K/uL Red Blood Count 3.18 4.7-6.1 M/uL Hemoglobin 10.4 14.0-18.0 g/dL Hematocrit 31.7 42-52 % Mean Corpuscular Volume 99.7 80-100 fL Mean Corpuscular Hemoglobin 32.7 25-34 pg Mean Corpuscular Hemoglobin Concent 32.8 32-36 g/dl Platelet Count 257 130-400 K/uL Mean Platelet Volume 9.9 7.4-10.4 fL Neutrophils (%) (Auto) 49.9 % Lymphocytes (%) (Auto) 32.2 % Monocytes (%) (Auto) 14.6 % Eosinophils (%) (Auto) 2.0 % Basophils (%) (Auto) 0.2 % Neutrophils # (Auto) 11.11 1.4-6.5 K/uL Lymphocytes # (Auto) 7.16 1.2-3.4 K/uL Monocytes # (Auto) 3.26 0.11-0.59 K/uL Eosinophils # (Auto) 0.45 0-0.5 K/uL Basophils # (Auto) 0.05 0-0.2 K/uL RDW Standard Deviation 59.4 36.4-46.3 fL RDW Coefficient of Variation 16.4 11.5-14.5 % Immature Granulocyte % (Auto) 1.1 % Immature Granulocyte # (Auto) 0.24 0.00-0.02 K/uL Nucleated RBC Absolute Count (auto) 0.02 0-0 K/uL Nucleated Red Blood Cells % 0.1 % Hypersegmented Polys 1+ Hypochromasia PRESENT Poikilocytosis PRESENT Anisocytosis PRESENT Total Bilirubin 0.5 0.2-1 mg/dl Direct Bilirubin 0.2 0-0.2 mg/dl Aspartate Amino Transf (AST/SGOT) 22 15-37 U/L Alanine Aminotransferase (ALT/SGPT) 23 12-78 U/L Alkaline Phosphatase 66 45-117 U/L Total Protein 5.9 6.4-8.2 gm/dl Albumin 2.3 3.4-5.0 gm/dl Test 12/23/17 08:22 12/23/17 11:00 Range/Units Sodium Level 135 136-145 mmol/L Potassium Level 3.6 3.5-5.1 mmol/L Chloride Level 103 98-107 mmol/L Carbon Dioxide Level 25 21-32 mmol/L Anion Gap 7.0 3-11 mmol/L Blood Urea Nitrogen 12 7-18 mg/dl Creatinine 1.26 0.60-1.40 mg/dl Est Creatinine Clear Calc Drug Dose 43.3 ml/min Estimated GFR () 62.5 Estimated GFR (Non- 53.9 BUN/Creatinine Ratio 9.7 10-20 Random Glucose 171 70-99 mg/dl Calcium Level 8.3 8.5-10.1 mg/dl Magnesium Level 1.9 1.8-2.4 mg/dl Bedside Glucose 183 70-99 mg/dl
[2017-12-23] MEDS: ALBUTEROL 0.083% NEBU SOLN 3 ML VIAL INH PRN (15:58)
[2017-12-23] MEDS: PRAVASTATIN SOD 40 MG TAB PO SCH (16:11)
[2017-12-23 18:21] LABS: HEMATOCRIT 28.1 % (42-52); HEMOGLOBIN 9.6 g/dL (14.0-18.0)
[2017-12-23] MEDS ORDERED: LAVAGE SOLUTION 4000ML PO SCH (18:30)
[2017-12-23] MEDS ORDERED: BISACODYL 5 MG TABEC PO ONE (18:30)
[2017-12-24] VITALS (9 sets, daily range): BP systolic 97–147; BP diastolic 62–83; PULSE 82–102; TEMP 36.6–37.2; O2SAT 92–98
[2017-12-24] MEDS: METRONIDAZOLE / NSS 500 MG in PREMIXED NSS 100 ML IV SCH ×3 (03:54→21:22)
[2017-12-24] MEDS: PANTOprazole INJ 40 MG in DEXTROSE 5% 100ML IV SCH ×5 (03:57→23:58)
[2017-12-24 06:55] LABS: HEMATOCRIT 27.4 % (42-52); HEMOGLOBIN 9.3 g/dL (14.0-18.0); MEAN CELL VOLUME 97.5 fL (80-100); MEAN CORPUSCULAR HEMOGLOBIN 33.1 pg (25-34); MEAN CORPUSCULAR HGB CONC 33.9 g/dl (32-36); MEAN PLATELET VOLUME 9.5 fL (7.4-10.4); PLATELET COUNT 231 K/uL (130-400); RED CELL DISTRIBUTION WIDTH CV 16.4 % (11.5-14.5); RED CELL DISTRIBUTION WIDTH SD 57.6 fL (36.4-46.3); WHITE BLOOD COUNT 21.77 K/uL (4.8-10.8)
[2017-12-24] MEDS: INSULIN ASPART 100 UNITS/ML 3 ML PEN SC SCH ×4 (07:00→21:00)
[2017-12-24 07:03] LABS: INR 1.2 (0.9-1.1)
[2017-12-24 07:24] LABS: CALCIUM 8.1 mg/dl (8.5-10.1); CREATININE 1.13 mg/dl (0.60-1.40); POTASSIUM 3.3 mmol/L (3.5-5.1)
[2017-12-24] MEDS ORDERED: POTASSIUM CHLORIDE 10 MEQ TABCR PO STA (07:30)
[2017-12-24 07:42] LABS: BASO % 0.1 %; BASO ABS # 0.03 K/uL (0-0.2); EOS % 1.6 %; EOS ABS # 0.34 K/uL (0-0.5); IG# 0.24 K/uL (0.00-0.02); LYMPH % 32.6 %; MONO % 14.8 %; MONO ABS # 3.22 K/uL (0.11-0.59); NEUT % 49.8 %; NEUT ABS # 10.84 K/uL (1.4-6.5)
[2017-12-24] MEDS: CARVEDILOL 12.5 MG TAB PO SCH ×2 (07:48→21:21)
--- NOTE | 2017-12-24 09:02 | SURGERY PROGRESS NOTE ---
DATE: 12/24/2017 Mr. Pelaez was seen today on 12/24/2017. He continues to have some evidence of GI bleeding. He is hemodynamically stable. I do not believe this pneumomediastinum is of clinical significance. His saturations have been adequate between room air and 3 liters of O2 from 92-98%. His hemoglobin has drifted down to 9.3 today. We will order a chest x-ray for tomorrow, but on physical exam I certainly do not feel any evidence of subcutaneous emphysema.
--- NOTE | 2017-12-24 09:28 | Gastroenterology Progress Note ---
Progress Note Date of Service: Dec 24, 2017 Subjective Pt evaluation today including: conversation w/ patient, physical exam, chart review, lab review Pt was seen and evaluated, chart reviewed. Admitted w/ rectal bleeding. C.diff negative. Prepped for colonoscopy last night. Tolerated prep. Having clear, liquid stools. Per pt, bleeding stopped during the c-scopy prep. He feels well this AM. No abd pain, nausea, vomiting. No CP. He has chronic SOB, unchanged. Review of Systems Constitutional: No fever, No chills, No weakness, No fatigue Respiratory: + shortness of breath, No cough Cardiac: No chest pain, No edema Abdomen: + diarrhea, No pain, No nausea, No vomiting, No constipation, No GI bleeding Medications Current Inpatient Medications Medications (Trade) Dose Ordered Sig/Aure Route Start Time Stop Time Status Last Admin Dose Admin Acetaminophen (Tylenol Tab) 650 mg Q4H PRN PO 12/21/17 05:00 01/20/18 04:59 Ondansetron HCl (Zofran Inj) 4 mg Q6H PRN IV 12/21/17 05:00 01/20/18 04:59 Polyethylene (Miralax Powder Packet) 17 gm DAILY PRN PO 12/21/17 05:00 01/20/18 04:59 Pantoprazole Sodium 40 mg/ Dextrose 100 ml @ 20 mls/hr Q5H IV 12/21/17 06:15 01/20/18 06:14 12/24/17 07:49 20 MLS/HR Insulin Aspart (novoLOG ASPART) SLIDING SCALE If C... ACHS SC 12/21/17 07:00 01/20/18 06:59 12/23/17 12:03 4 UNITS Glucose (Glucose 40% Gel) 15-30 GRAMS 15 GRAMS... UD PRN PO 12/21/17 06:00 01/20/18 05:59 Glucose (Glucose Chew Tab) 4-8 Tablets 4 Tabl... UD PRN PO 12/21/17 06:00 01/20/18 05:59 Dextrose (Dextrose 50% 50ML Syringe) 25-50ML OF 50% DW IV FOR... UD PRN IV 12/21/17 06:00 01/20/18 05:59 Glucagon (Glucagon Inj) 1 mg UD PRN SQ 12/21/17 06:00 01/20/18 05:59 Pravastatin Sodium (Pravachol Tab) 80 mg DAILY@17 PO 12/21/17 17:00 01/20/18 16:59 12/23/17 16:11 80 MG Albuterol Sulfate (Ventolin 0.083% 2.5MG/3ML Neb) 2.5 mg Q4H PRN INH 12/21/17 10:45 01/20/18 10:44 12/23/17 15:58 2.5 MG Carvedilol (Coreg Tab) 12.5 mg BID PO 12/21/17 21:00 01/20/18 20:59 12/24/17 07:48 12.5 MG Albuterol (Proair Hfa) 2 puffs QID PRN INH 12/21/17 11:00 01/20/18 10:59 Ciprofloxacin/ Dextrose 400 mg/ Prmx 200 ml @ 100 mls/hr Q12H IV 12/21/17 12:00 12/31/17 11:59 12/23/17 23:40 100 MLS/HR Metronidazole 500 mg/Prmx 100 ml @ 100 mls/hr Q8H IV 12/21/17 12:00 12/31/17 11:59 12/24/17 03:54 100 MLS/HR Ioversol (Optiray 320) 125 ml UD PRN IV 12/21/17 11:30 12/25/17 11:29 Objective Vital Signs Date Time Temp Pulse Resp B/P (MAP) Pulse Ox O2 Delivery O2 Flow Rate FiO2 12/24/17 08:00 98 Room Air 3.0 12/24/17 07:25 37.1 88 27 147/83 (104) 98 Room Air 12/24/17 04:00 37.0 84 29 97/77 (84) 96 Nasal Cannula 12/24/17 04:00 96 Nasal Cannula 3.0 12/24/17 00:00 36.6 89 24 138/76 (96) 92 Nasal Cannula 3.0 12/24/17 00:00 92 Nasal Cannula 3.0 12/23/17 20:10 95 Nasal Cannula 3.0 12/23/17 19:33 37.1 87 33 159/82 (107) 95 Nasal Cannula 3.0 12/23/17 16:00 96 Nasal Cannula 3.0 12/23/17 15:58 84 14 96 Nasal Cannula 3.0 12/23/17 15:34 37.1 87 29 113/64 (80) 94 Nasal Cannula 3.0 12/23/17 12:00 Nasal Cannula 3.0 12/23/17 11:04 36.6 107 18 101/66 (78) 94 Nasal Cannula 3.0 12/23/17 10:16 Nasal Cannula 3.0 Physical Exam General Appearance: no apparent distress Eyes: PERRL ENT: hearing grossly normal Neck: supple, trachea midline Respiratory/Chest: lungs clear, no respiratory distress, + pertinent finding ( wearing O2) Cardiovascular: regular rate, rhythm, no edema, no gallop, no JVD Abdomen: normal bowel sounds, non tender, soft, no organomegaly Neurologic/Psych: alert, normal mood/affect, oriented x 3 Skin: normal color, no jaundice, warm/dry, no rash Laboratory Results Last 24 Hours Test 12/23/17 11:00 12/23/17 16:15 12/23/17 17:59 12/23/17 21:00 Bedside Glucose 183 mg/dl 126 mg/dl 139 mg/dl Hemoglobin 9.6 g/dL Hematocrit 28.1 % Test 12/24/17 06:30 12/24/17 06:34 Bedside Glucose 123 mg/dl White Blood Count 21.77 K/uL Red Blood Count 2.81 M/uL Hemoglobin 9.3 g/dL Hematocrit 27.4 % Mean Corpuscular Volume 97.5 fL Mean Corpuscular Hemoglobin 33.1 pg Mean Corpuscular Hemoglobin Concent 33.9 g/dl Platelet Count 231 K/uL Mean Platelet Volume 9.5 fL Neutrophils (%) (Auto) 49.8 % Lymphocytes (%) (Auto) 32.6 % Monocytes (%) (Auto) 14.8 % Eosinophils (%) (Auto) 1.6 % Basophils (%) (Auto) 0.1 % Neutrophils # (Auto) 10.84 K/uL Lymphocytes # (Auto) 7.10 K/uL Monocytes # (Auto) 3.22 K/uL Eosinophils # (Auto) 0.34 K/uL Basophils # (Auto) 0.03 K/uL RDW Standard Deviation 57.6 fL RDW Coefficient of Variation 16.4 % Immature Granulocyte % (Auto) 1.1 % Immature Granulocyte # (Auto) 0.24 K/uL Giant Platelets 1+ Poikilocytosis PRESENT Prothrombin Time 12.8 SECONDS Prothromb Time International Ratio 1.2 Sodium Level 135 mmol/L Potassium Level 3.3 mmol/L Chloride Level 102 mmol/L Carbon Dioxide Level 24 mmol/L Anion Gap 9.0 mmol/L Blood Urea Nitrogen 9 mg/dl Creatinine 1.13 mg/dl Est Creatinine Clear Calc Drug Dose 48.8 ml/min Estimated GFR () 71.3 Estimated GFR (Non- 61.5 BUN/Creatinine Ratio 8.3 Random Glucose 117 mg/dl Calcium Level 8.1 mg/dl Magnesium Level 1.8 mg/dl Assessment and Plan Mr. Pelaez is a 77 yr old male who experienced a recurrence of rectal bleeding. CT w/o colitis, thus this likely represents diverticular bleeding. He prepped for colonoscopy w/ adequate response and cessation of rectal bleeding NPO Colonoscopy today Update. Pt was to endoscopy for colonoscopy. Was hypoxic w/ respiratory distress. Evaluated by anesthesia and Dr. Hernandez who agreed that Colonoscopy today needs to be canceled. Given the resolution of GIB during bowel prep, pts symptoms likely related to a diverticular bleed. However, in the event of re- bleed, the pt will need to be transferred to a tertiary care center with IR capability. GI to sign off presently. Please call with any acute changes, questions or concerns. I saw and evaluated the patient. He was scheduled to have a colonoscopy today however the procedure was not performed due to problems with hypoxia. After long discussion with anesthesia it appears that colonoscopy is not a safe procedure to this patient at this hospital. Should the patient have a repeat hematochezia I would suggest a tagged RBC study and perhaps referral to a tertiary center with a larger support structure. Please call with any questions or concerns, GI to sign off for the present time
--- NOTE | 2017-12-24 10:09 | Progress Note ---
Internal Med Progress Note Date of Service: Dec 24, 2017. Provider Documentation: SUBJECTIVE: resting comfortably had prep for colonoscopy denies nausea or abdominal pain sob when he gets up no chest pain awaiting for colonoscopy OBJECTIVE: Vital Signs-as noted below Exam: General-alert and oriented. Not in distress ENT-Normal hearing Neck-no neck masses Lungs-cta b/l no wheezing or crackles Heart-S1 and S2 heard regular rate and rhythm no murmurs Abdomen-Soft bowel sounds present non tender no distension Extremities-no edema no erythema Neuro-alert and awake moves extremities Lab data as noted below. ASSESSMENT & PLAN: 77-year-old female presents with rectal bleeding. Acute GI bleeding- presented with rectal bleeding hb stable at 10.7 ct scan shows diverticulosis mostly diverticular bleed but stopped as of yesterday patient refused colonoscopy GI on board had couple of bloody bowel movements today hb 9.3 patient now agrees for colonoscopy and plan for it today Shortness of breath in setting of interstitial lung disease-requiring more continuous oxygen use. May be contributed by recent decrease in prednisone. CXR unremarkable To Continue management per outpatient pulmonology. 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 possible ischemic colitis as per Gi to treat with cipro and Flagyl for one week Hypertension- on coreg will monitor. CKD stage III-at baseline monitor DVT prophylaxis-contraindicated in setting of bleed, SCDs Full code as discussed patient on admission DISPOSITION to be determined pt/ot Vital Signs: Date Time Temp Pulse Resp B/P (MAP) Pulse Ox O2 Delivery O2 Flow Rate FiO2 12/24/17 08:00 98 Room Air 3.0 12/24/17 07:25 37.1 88 27 147/83 (104) 98 Room Air 12/24/17 04:00 37.0 84 29 97/77 (84) 96 Nasal Cannula 12/24/17 04:00 96 Nasal Cannula 3.0 12/24/17 00:00 36.6 89 24 138/76 (96) 92 Nasal Cannula 3.0 12/24/17 00:00 92 Nasal Cannula 3.0 12/23/17 20:10 95 Nasal Cannula 3.0 12/23/17 19:33 37.1 87 33 159/82 (107) 95 Nasal Cannula 3.0 12/23/17 16:00 96 Nasal Cannula 3.0 12/23/17 15:58 84 14 96 Nasal Cannula 3.0 12/23/17 15:34 37.1 87 29 113/64 (80) 94 Nasal Cannula 3.0 12/23/17 12:00 Nasal Cannula 3.0 12/23/17 11:04 36.6 107 18 101/66 (78) 94 Nasal Cannula 3.0 12/23/17 10:16 Nasal Cannula 3.0 Lab Results: Results Past 24 Hours Test 12/23/17 11:00 12/23/17 16:15 12/23/17 17:59 12/23/17 21:00 Range/Units Bedside Glucose 183 126 139 70-99 mg/dl Hemoglobin 9.6 14.0-18.0 g/dL Hematocrit 28.1 42-52 % Test 12/24/17 06:30 12/24/17 06:34 Range/Units Bedside Glucose 123 70-99 mg/dl White Blood Count 21.77 4.8-10.8 K/uL Red Blood Count 2.81 4.7-6.1 M/uL Hemoglobin 9.3 14.0-18.0 g/dL Hematocrit 27.4 42-52 % Mean Corpuscular Volume 97.5 80-100 fL Mean Corpuscular Hemoglobin 33.1 25-34 pg Mean Corpuscular Hemoglobin Concent 33.9 32-36 g/dl Platelet Count 231 130-400 K/uL Mean Platelet Volume 9.5 7.4-10.4 fL Neutrophils (%) (Auto) 49.8 % Lymphocytes (%) (Auto) 32.6 % Monocytes (%) (Auto) 14.8 % Eosinophils (%) (Auto) 1.6 % Basophils (%) (Auto) 0.1 % Neutrophils # (Auto) 10.84 1.4-6.5 K/uL Lymphocytes # (Auto) 7.10 1.2-3.4 K/uL Monocytes # (Auto) 3.22 0.11-0.59 K/uL Eosinophils # (Auto) 0.34 0-0.5 K/uL Basophils # (Auto) 0.03 0-0.2 K/uL RDW Standard Deviation 57.6 36.4-46.3 fL RDW Coefficient of Variation 16.4 11.5-14.5 % Immature Granulocyte % (Auto) 1.1 % Immature Granulocyte # (Auto) 0.24 0.00-0.02 K/uL Giant Platelets 1+ Poikilocytosis PRESENT Prothrombin Time 12.8 9.0-12.0 SECONDS Prothromb Time International Ratio 1.2 0.9-1.1 Sodium Level 135 136-145 mmol/L Potassium Level 3.3 3.5-5.1 mmol/L Chloride Level 102 98-107 mmol/L Carbon Dioxide Level 24 21-32 mmol/L Anion Gap 9.0 3-11 mmol/L Blood Urea Nitrogen 9 7-18 mg/dl Creatinine 1.13 0.60-1.40 mg/dl Est Creatinine Clear Calc Drug Dose 48.8 ml/min Estimated GFR () 71.3 Estimated GFR (Non- 61.5 BUN/Creatinine Ratio 8.3 10-20 Random Glucose 117 70-99 mg/dl Calcium Level 8.1 8.5-10.1 mg/dl Magnesium Level 1.8 1.8-2.4 mg/dl
[2017-12-24] MEDS: CIPROFLOXACIN / D5W 400 MG in PREMIXED IN D5W 200 ML IV SCH ×2 (12:38→23:59)
--- NOTE | 2017-12-24 12:53 | Anesthesiology Progress Note ---
Anesthesia Progress Note Date of Service Dec 24, 2017. Progress Notes The patient is a 77 y/o male who was to have a colonoscopy today to evaluate a GI bleed. He has a history of chronic respiratory failure. The patient was transferred from the from the floor on oxygen 3 L NC by wheelchair. He ambulated from the wheelchair to the stretcher in the GI suite. His initial SpO2 was 94 on 3 L NC. He was SOB, tachypneic, and wheezing as per the admitting nurse. He began coughing sputum. His nose began bleeding as well. He was placed on a pulse oximetry and his SpO2 was noted to be 78 while he was lying on the stretcher. The nurse alerted me and I came to see the patient. On my arrival the patient was tachypneic with RR in the 30s and diaphoretic. His lungs had decreased breath sounds and wheezing on auscultation. He was placed on 10 L FM oxygen. His SpO2 improved to the 90s and the patient's respiratory rate decreased to 20. Dr. Mack was paged and came to evaluate the patient. He felt that the patient's respiratory status should be improved prior to undergoing anesthesia. The patient was transferred back to the floor on oxygen and the procedure was cancelled. I spoke with Dr. Hernandez who agreed to delay the procedure at this time.
[2017-12-24] MEDS ORDERED: BISACODYL 5 MG TABEC PO ONE (17:00)
[2017-12-24] MEDS: PRAVASTATIN SOD 40 MG TAB PO SCH (17:07)
[2017-12-25 00:04] VITALS: BP 108/61; PULSE 95; TEMP 37; O2SAT 92
[2017-12-25] MEDS: METRONIDAZOLE / NSS 500 MG in PREMIXED NSS 100 ML IV SCH ×2 (03:52→12:06)
[2017-12-25 03:53] VITALS: BP 98/56; PULSE 85; TEMP 37.3; O2SAT 91
[2017-12-25] MEDS: PANTOprazole INJ 40 MG in DEXTROSE 5% 100ML IV SCH ×4 (04:31→19:29)
[2017-12-25 07:13] LABS: HEMATOCRIT 25.4 % (42-52); HEMOGLOBIN 8.5 g/dL (14.0-18.0); MEAN CELL VOLUME 98.8 fL (80-100); MEAN CORPUSCULAR HEMOGLOBIN 33.1 pg (25-34); MEAN CORPUSCULAR HGB CONC 33.5 g/dl (32-36); NUCLEATED RED BLOOD CELL ABS 0.03 K/uL (0-0); PLATELET COUNT 231 K/uL (130-400); RED CELL DISTRIBUTION WIDTH CV 17.1 % (11.5-14.5); RED CELL DISTRIBUTION WIDTH SD 60.4 fL (36.4-46.3)
--- NOTE | 2017-12-25 07:22 | DIAGNOSTIC IMAGING REPORT ---
CHEST ONE VIEW PORTABLE CLINICAL HISTORY: pneumomediastinum COMPARISON STUDY: Chest radiograph December 21, [address] December 22, 2017. FINDINGS: There is no pneumothorax or pleural effusion. The pneumomediastinum shown on chest CT December 22, 2017 is well visualized on this exam although likely visualized. Diffuse interstitial thickening is unchanged. No superimposed consolidation is identified. Cardiomediastinal silhouette is stable. IMPRESSION: 1. No pneumothorax. Probable pneumomediastinum, better depicted on prior CT. No evidence for increasing pneumomediastinum allowing for differences in technique. 2. Diffuse interstitial thickening consistent with pulmonary fibrosis. Electronically signed by: Kurt Henderson M.D. 12/25/2017 7:21 AM Dictated Date/Time: 12/25/2017 7:17 AM
[2017-12-25 07:39] LABS: CALCIUM 7.8 mg/dl (8.5-10.1); CREATININE 1.13 mg/dl (0.60-1.40); POTASSIUM 3.6 mmol/L (3.5-5.1)
[2017-12-25 07:58] VITALS: BP 129/94; PULSE 82; TEMP 36.7; O2SAT 92
[2017-12-25] MEDS: CARVEDILOL 12.5 MG TAB PO SCH ×2 (08:19→20:16)
[2017-12-25] MEDS: INSULIN ASPART 100 UNITS/ML 3 ML PEN SC SCH ×4 (08:22→20:24)
[2017-12-25 08:52] LABS: BASO % 0.2 %; BASO ABS # 0.03 K/uL (0-0.2); EOS % 3.7 %; EOS ABS # 0.71 K/uL (0-0.5); IG# 0.17 K/uL (0.00-0.02); LYMPH % 34.5 %; LYMPH ABS # 6.65 K/uL (1.2-3.4); MONO % 12.4 %; NEUT % 48.3 %; NEUT ABS # 9.34 K/uL (1.4-6.5)
[2017-12-25 11:33] VITALS: BP 96/54; PULSE 89; TEMP 36.6; O2SAT 90
[2017-12-25] MEDS: CIPROFLOXACIN / D5W 400 MG in PREMIXED IN D5W 200 ML IV SCH (12:06)
[2017-12-25 15:52] VITALS: BP 142/85; PULSE 82; TEMP 37; O2SAT 98
--- NOTE | 2017-12-25 16:01 | SURGERY PROGRESS NOTE ---
DATE: 12/25/2017 SUBJECTIVE: Mr. Pelaez was seen today on 12/25/2017. Chest x-ray was reviewed. 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 I think it is of benign etiology and I would not address this further. MTDD
[2017-12-25] MEDS: PRAVASTATIN SOD 40 MG TAB PO SCH (17:22)
--- NOTE | 2017-12-25 19:06 | Progress Note ---
Internal Med Progress Note Date of Service: Dec 25, 2017. Provider Documentation: SUBJECTIVE: NO MORE EPISODES OF BLEEDING EATING OK GETS SOB ON MINIMAL EXERTION SAYS AMBULATES LITTLE AT HOME WITH WALKER SITING ON CHAIR NO CHEST PAIN NO NAUSEA OBJECTIVE: Vital Signs-as noted below Exam: General-alert and oriented. Not in distress ENT-Normal hearing Neck-no neck masses Lungs-cta b/l no wheezing or crackles Heart-S1 and S2 heard regular rate and rhythm no murmurs Abdomen-Soft bowel sounds present non tender no distension Extremities-no edema no erythema Neuro-alert and awake moves extremities Lab data as noted below. ASSESSMENT & PLAN: 77-year-old female presents with rectal bleeding. Acute GI bleeding- presented with rectal bleeding hb stable at 10.7 ct scan shows diverticulosis mostly diverticular bleed but stopped as of yesterday patient refused colonoscopy GI on board had couple of bloody bowel movements today hb 8.5 today colonoscopy was not done yesterday as he desaturated in endo suit if colonoscopy is required plan to transfer to tertiary care because of his resp status Shortness of breath in setting of interstitial lung disease-requiring more continuous oxygen use. May be contributed by recent decrease in prednisone. CXR unremarkable To Continue management per outpatient pulmonology. 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 possible ischemic colitis as per Gi to treat with cipro and Flagyl for one week will change to po Hypertension- on coreg will monitor. CKD stage III-at baseline monitor DVT prophylaxis-contraindicated in setting of bleed, SCDs Full code as discussed patient on admission DISPOSITION to be determined pt/ot Vital Signs: Date Time Temp Pulse Resp B/P (MAP) Pulse Ox O2 Delivery O2 Flow Rate FiO2 12/25/17 16:04 Nasal Cannula 3.0 12/25/17 15:52 37.0 82 20 142/85 (104) 98 Nasal Cannula 3.0 Humidified Oxygen 12/25/17 12:38 Nasal Cannula 3.0 12/25/17 11:33 36.6 89 27 96/54 (68) 90 Nasal Cannula 6.0 12/25/17 08:01 Nasal Cannula 3.0 12/25/17 07:58 36.7 82 21 129/94 (106) 92 Room Air 12/25/17 04:00 Nasal Cannula 12/25/17 03:53 37.3 85 22 98/56 (70) 91 Nasal Cannula 12/25/17 00:04 37.0 95 21 108/61 (77) 92 Nasal Cannula 3.0 12/24/17 23:59 Nasal Cannula 12/24/17 20:00 Nasal Cannula 12/24/17 19:45 37.2 102 22 134/72 (92) 97 Nasal Cannula 3.0 Lab Results: Results Past 24 Hours Test 12/24/17 20:58 12/25/17 06:19 12/25/17 06:57 12/25/17 11:06 Range/Units Bedside Glucose 179 140 201 70-99 mg/dl White Blood Count 19.30 4.8-10.8 K/uL Red Blood Count 2.57 4.7-6.1 M/uL Hemoglobin 8.5 14.0-18.0 g/dL Hematocrit 25.4 42-52 % Mean Corpuscular Volume 98.8 80-100 fL Mean Corpuscular Hemoglobin 33.1 25-34 pg Mean Corpuscular Hemoglobin Concent 33.5 32-36 g/dl Platelet Count 231 130-400 K/uL Mean Platelet Volume 9.0 7.4-10.4 fL Neutrophils (%) (Auto) 48.3 % Lymphocytes (%) (Auto) 34.5 % Monocytes (%) (Auto) 12.4 % Eosinophils (%) (Auto) 3.7 % Basophils (%) (Auto) 0.2 % Neutrophils # (Auto) 9.34 1.4-6.5 K/uL Lymphocytes # (Auto) 6.65 1.2-3.4 K/uL Monocytes # (Auto) 2.40 0.11-0.59 K/uL Eosinophils # (Auto) 0.71 0-0.5 K/uL Basophils # (Auto) 0.03 0-0.2 K/uL RDW Standard Deviation 60.4 36.4-46.3 fL RDW Coefficient of Variation 17.1 11.5-14.5 % Immature Granulocyte % (Auto) 0.9 % Immature Granulocyte # (Auto) 0.17 0.00-0.02 K/uL Nucleated RBC Absolute Count (auto) 0.03 0-0 K/uL Nucleated Red Blood Cells % 0.2 % Sodium Level 136 136-145 mmol/L Potassium Level 3.6 3.5-5.1 mmol/L Chloride Level 105 98-107 mmol/L Carbon Dioxide Level 24 21-32 mmol/L Anion Gap 7.0 3-11 mmol/L Blood Urea Nitrogen 8 7-18 mg/dl Creatinine 1.13 0.60-1.40 mg/dl Est Creatinine Clear Calc Drug Dose 48.5 ml/min Estimated GFR () 71.3 Estimated GFR (Non- 61.5 BUN/Creatinine Ratio 7.3 10-20 Random Glucose 132 70-99 mg/dl Calcium Level 7.8 8.5-10.1 mg/dl Magnesium Level 1.8 1.8-2.4 mg/dl Test 12/25/17 16:03 Range/Units Bedside Glucose 163 70-99 mg/dl
[2017-12-25 19:27] VITALS: BP 130/74; PULSE 93; TEMP 36.7; O2SAT 96
[2017-12-25] MEDS ORDERED: FUROSEMIDE INJ 20 MG in SYRINGE 0 ML IV ONE (19:30)
[2017-12-25] MEDS: METRONIDAZOLE 500 MG TAB PO SCH (20:15)
[2017-12-25] MEDS: CIPROFLOXACIN 500 MG TAB PO SCH (20:16)
[2017-12-26] VITALS (7 sets, daily range): BP systolic 91–125; BP diastolic 47–76; PULSE 71–108; TEMP 36.5–38.5; O2SAT 92–99
[2017-12-26] MEDS: PANTOprazole INJ 40 MG in DEXTROSE 5% 100ML IV SCH ×5 (00:21→20:34)
[2017-12-26 07:24] LABS: HEMATOCRIT 26.7 % (42-52); HEMOGLOBIN 9.2 g/dL (14.0-18.0); MEAN CELL VOLUME 99.3 fL (80-100); MEAN CORPUSCULAR HEMOGLOBIN 34.2 pg (25-34); MEAN CORPUSCULAR HGB CONC 34.5 g/dl (32-36); MEAN PLATELET VOLUME 9.1 fL (7.4-10.4); NUCLEATED RED BLOOD CELL ABS 0.03 K/uL (0-0); PLATELET COUNT 249 K/uL (130-400); RED CELL DISTRIBUTION WIDTH CV 16.7 % (11.5-14.5); RED CELL DISTRIBUTION WIDTH SD 60.1 fL (36.4-46.3); WHITE BLOOD COUNT 17.52 K/uL (4.8-10.8)
[2017-12-26] MEDS: TORSEMIDE 20 MG TAB PO SCH (07:37)
[2017-12-26] MEDS: CIPROFLOXACIN 500 MG TAB PO SCH ×2 (07:38→20:22)
[2017-12-26] MEDS: METRONIDAZOLE 500 MG TAB PO SCH ×3 (07:38→20:22)
[2017-12-26] MEDS: CARVEDILOL 12.5 MG TAB PO SCH ×2 (07:38→20:23)
[2017-12-26 07:44] LABS: CALCIUM 7.8 mg/dl (8.5-10.1); CREATININE 1.47 mg/dl (0.60-1.40); POTASSIUM 3.4 mmol/L (3.5-5.1)
[2017-12-26 08:05] LABS: BASO % 0.2 %; BASO ABS # 0.04 K/uL (0-0.2); EOS % 4.1 %; EOS ABS # 0.71 K/uL (0-0.5); LYMPH % 35.4 %; MONO % 11.9 %; MONO ABS # 2.09 K/uL (0.11-0.59); NEUT % 47.8 %; NEUT ABS # 8.38 K/uL (1.4-6.5)
[2017-12-26] MEDS ORDERED: POTASSIUM CHLORIDE 20 MEQ TABCR PO STA (08:07)
[2017-12-26] MEDS: INSULIN ASPART 100 UNITS/ML 3 ML PEN SC SCH ×4 (08:17→20:23)
--- NOTE | 2017-12-26 16:57 | Progress Note ---
Internal Med Progress Note Date of Service: Dec 26, 2017. Provider Documentation: SUBJECTIVE: sitting on the chair comfortably no chest pain or abdominal pain had small bowel movement today but patient doesn't know if there was any blood in it afebrile eating ok weak OBJECTIVE: Vital Signs-as noted below Exam: General-alert and oriented. Not in distress ENT-Normal hearing Neck-no neck masses Lungs-cta b/l no wheezing or crackles Heart-S1 and S2 heard regular rate and rhythm no murmurs Abdomen-Soft bowel sounds present non tender no distension Extremities-no edema no erythema Neuro-alert and awake moves extremities Lab data as noted below. ASSESSMENT & PLAN: 77-year-old female presents with rectal bleeding. Acute GI bleeding- presented with rectal bleeding hb stable at 10.7 ct scan shows diverticulosis mostly diverticular bleed but stopped as of yesterday patient refused colonoscopy GI on board had couple of bloody bowel movements today hb 9.2today colonoscopy was not done as he desaturated in endo suit if colonoscopy is required plan to transfer to tertiary care because of his resp status continue to monitor Shortness of breath in setting of interstitial lung disease-requiring more continuous oxygen use. May be contributed by recent decrease in prednisone. CXR unremarkable To Continue management per outpatient pulmonology. 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 possible ischemic colitis as per Gi to treat with cipro and Flagyl for one week #5 will change to po Hypertension- on coreg will monitor. CKD stage III-at baseline monitor DVT prophylaxis-contraindicated in setting of bleed, SCDs Full code as discussed patient on admission DISPOSITION possible d/c in 1-2 days if stable pt/ot home vs placement Vital Signs: Date Time Temp Pulse Resp B/P (MAP) Pulse Ox O2 Delivery O2 Flow Rate FiO2 12/26/17 16:00 Nasal Cannula 3.0 12/26/17 15:39 36.7 90 18 121/71 (88) 94 Nasal Cannula 3.0 Humidified Oxygen 12/26/17 12:00 Nasal Cannula 3.0 12/26/17 11:41 36.5 108 18 91/61 (71) 97 12/26/17 08:00 Nasal Cannula 3.0 12/26/17 06:58 36.9 77 18 117/67 (84) 92 Nasal Cannula 3.0 12/26/17 04:06 36.6 71 20 102/52 (69) 99 Nasal Cannula 3.0 12/26/17 04:05 Nasal Cannula 3.0 12/26/17 00:04 38.5 101 26 94/57 (69) 92 Nasal Cannula 12/26/17 00:00 Nasal Cannula 3.0 12/25/17 20:00 Nasal Cannula 3.0 12/25/17 19:27 36.7 93 20 130/74 (92) 96 Nasal Cannula 3.0 Humidified Oxygen Lab Results: Results Past 24 Hours Test 12/25/17 20:13 12/26/17 06:32 12/26/17 07:09 12/26/17 11:20 Range/Units Bedside Glucose 154 121 195 70-99 mg/dl White Blood Count 17.52 4.8-10.8 K/uL Red Blood Count 2.69 4.7-6.1 M/uL Hemoglobin 9.2 14.0-18.0 g/dL Hematocrit 26.7 42-52 % Mean Corpuscular Volume 99.3 80-100 fL Mean Corpuscular Hemoglobin 34.2 25-34 pg Mean Corpuscular Hemoglobin Concent 34.5 32-36 g/dl Platelet Count 249 130-400 K/uL Mean Platelet Volume 9.1 7.4-10.4 fL Neutrophils (%) (Auto) 47.8 % Lymphocytes (%) (Auto) 35.4 % Monocytes (%) (Auto) 11.9 % Eosinophils (%) (Auto) 4.1 % Basophils (%) (Auto) 0.2 % Neutrophils # (Auto) 8.38 1.4-6.5 K/uL Lymphocytes # (Auto) 6.20 1.2-3.4 K/uL Monocytes # (Auto) 2.09 0.11-0.59 K/uL Eosinophils # (Auto) 0.71 0-0.5 K/uL Basophils # (Auto) 0.04 0-0.2 K/uL RDW Standard Deviation 60.1 36.4-46.3 fL RDW Coefficient of Variation 16.7 11.5-14.5 % Immature Granulocyte % (Auto) 0.6 % Immature Granulocyte # (Auto) 0.10 0.00-0.02 K/uL Nucleated RBC Absolute Count (auto) 0.03 0-0 K/uL Nucleated Red Blood Cells % 0.2 % Hypersegmented Polys OCCASIONAL [place] Bodies OCCASIONAL Sodium Level 136 136-145 mmol/L Potassium Level 3.4 3.5-5.1 mmol/L Chloride Level 104 98-107 mmol/L Carbon Dioxide Level 26 21-32 mmol/L Anion Gap 6.0 3-11 mmol/L Blood Urea Nitrogen 11 7-18 mg/dl Creatinine 1.47 0.60-1.40 mg/dl Est Creatinine Clear Calc Drug Dose 37.4 ml/min Estimated GFR () 51.8 Estimated GFR (Non- 44.7 BUN/Creatinine Ratio 7.7 10-20 Random Glucose 117 70-99 mg/dl Calcium Level 7.8 8.5-10.1 mg/dl Magnesium Level 1.8 1.8-2.4 mg/dl Test 12/26/17 16:19 Range/Units Bedside Glucose 125 70-99 mg/dl
[2017-12-26] MEDS: PRAVASTATIN SOD 40 MG TAB PO SCH (17:02)
[2017-12-26] MEDS ORDERED: ALBUTEROL HFA 8 GM INHALER INH PRN (18:00)
[2017-12-27] MEDS: PANTOprazole INJ 40 MG in DEXTROSE 5% 100ML IV SCH ×2 (01:46→07:02)
[2017-12-27 03:33] VITALS: BP 124/73; PULSE 89; TEMP 37; O2SAT 94
[2017-12-27] MEDS: CARVEDILOL 12.5 MG TAB PO SCH ×2 (08:26→21:01)
[2017-12-27] MEDS: METRONIDAZOLE 500 MG TAB PO SCH ×3 (08:26→21:02)
[2017-12-27] MEDS: CIPROFLOXACIN 500 MG TAB PO SCH ×2 (08:27→21:04)
[2017-12-27] MEDS: TORSEMIDE 20 MG TAB PO SCH (08:27)
[2017-12-27 08:29] VITALS: BP 132/87; PULSE 84; TEMP 36.8; O2SAT 94
[2017-12-27] MEDS: INSULIN ASPART 100 UNITS/ML 3 ML PEN SC SCH ×4 (08:30→21:00)
[2017-12-27 12:01] VITALS: BP 125/77; PULSE 101; TEMP 36.8; O2SAT 93
[2017-12-27 15:19] VITALS: BP 120/52; PULSE 85; TEMP 37.2; O2SAT 90
--- NOTE | 2017-12-27 16:36 | Progress Note ---
Internal Med Progress Note Date of Service: Dec 27, 2017. Provider Documentation: SUBJECTIVE: resting in bed comfortably gets sob on exertion no bloody bowel movement afebrile eating ok doesn't want to go to rehab or snf OBJECTIVE: Vital Signs-as noted below Exam: General-alert and oriented. Not in distress ENT-Normal hearing Neck-no neck masses Lungs-cta b/l no wheezing or crackles Heart-S1 and S2 heard regular rate and rhythm no murmurs Abdomen-Soft bowel sounds present non tender no distension Extremities-no edema no erythema Neuro-alert and awake moves extremities Lab data as noted below. ASSESSMENT & PLAN: 77-year-old female presents with rectal bleeding. Acute GI bleeding- presented with rectal bleeding hb stable at 10.7 ct scan shows diverticulosis mostly diverticular bleed but stopped as of yesterday patient refused colonoscopy GI on board had couple of bloody bowel movements today hb 9.2today colonoscopy was not done as he desaturated in endo suit if colonoscopy is required plan to transfer to tertiary care because of his resp status stable currently Shortness of breath in setting of interstitial lung disease-requiring more continuous oxygen use. May be contributed by recent decrease in prednisone. CXR unremarkable To Continue management per outpatient pulmonology. 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 possible ischemic colitis as per Gi to treat with cipro and Flagyl for one week #6 changed to po Hypertension- on coreg will monitor. CKD stage III-at baseline monitor DVT prophylaxis-contraindicated in setting of bleed, SCDs Full code as discussed patient on admission DISPOSITION possible d/c in am with home health if stable refuses placement pt/ot Vital Signs: Date Time Temp Pulse Resp B/P (MAP) Pulse Ox O2 Delivery O2 Flow Rate FiO2 12/27/17 16:00 Nasal Cannula 3.0 12/27/17 15:19 37.2 85 24 120/52 (74) 90 Nasal Cannula 3.0 12/27/17 12:01 36.8 101 16 125/77 (93) 93 12/27/17 12:00 Nasal Cannula 3.0 12/27/17 08:29 36.8 84 20 132/87 (102) 94 12/27/17 08:00 Nasal Cannula 3.0 12/27/17 04:00 Nasal Cannula 3.0 12/27/17 03:33 37.0 89 21 124/73 (90) 94 Nasal Cannula 3.0 12/26/17 23:59 Nasal Cannula 3.0 12/26/17 23:52 37.4 88 20 91/47 (62) 92 Nasal Cannula 3.0 12/26/17 20:00 Nasal Cannula 3.0 Humidified Oxygen 12/26/17 19:45 37.5 104 18 125/76 (92) 97 Nasal Cannula 3.0 Humidified Oxygen Lab Results: Results Past 24 Hours Test 12/26/17 20:09 12/27/17 06:59 12/27/17 11:27 Range/Units Bedside Glucose 122 128 168 70-99 mg/dl
[2017-12-27] MEDS: PRAVASTATIN SOD 40 MG TAB PO SCH (17:13)
[2017-12-27 19:54] VITALS: BP 132/72; PULSE 97; TEMP 36.6; O2SAT 94
[2017-12-27] MEDS: PANTOprazole SOD 40 MG TAB PO SCH (21:02)
[2017-12-27 23:44] VITALS: BP 101/53; PULSE 81; TEMP 37; O2SAT 94
[2017-12-28] VITALS (9 sets, daily range): BP systolic 90–127; BP diastolic 61–80; PULSE 87–116; TEMP 36.4–37; O2SAT 80–96
[2017-12-28] MEDS: ALBUTEROL 0.083% NEBU SOLN 3 ML VIAL INH PRN (04:18)
[2017-12-28 05:46] LABS: HEMATOCRIT 28.1 % (42-52); HEMOGLOBIN 9.2 g/dL (14.0-18.0); MEAN CELL VOLUME 99.6 fL (80-100); MEAN CORPUSCULAR HEMOGLOBIN 32.6 pg (25-34); MEAN CORPUSCULAR HGB CONC 32.7 g/dl (32-36); MEAN PLATELET VOLUME 9.3 fL (7.4-10.4); PLATELET COUNT 299 K/uL (130-400); RED CELL DISTRIBUTION WIDTH CV 17.1 % (11.5-14.5); RED CELL DISTRIBUTION WIDTH SD 61.8 fL (36.4-46.3)
[2017-12-28 06:08] LABS: CALCIUM 8.1 mg/dl (8.5-10.1); CREATININE 1.42 mg/dl (0.60-1.40); POTASSIUM 3.4 mmol/L (3.5-5.1)
[2017-12-28 07:08] LABS: BASO % 0.2 %; BASO ABS # 0.03 K/uL (0-0.2); EOS % 3.6 %; EOS ABS # 0.66 K/uL (0-0.5); IG# 0.16 K/uL (0.00-0.02); LYMPH % 33.9 %; MONO % 12.5 %; MONO ABS # 2.29 K/uL (0.11-0.59); NEUT % 48.9 %; NEUT ABS # 8.96 K/uL (1.4-6.5)
[2017-12-28] MEDS ORDERED: POTASSIUM CHLORIDE 10 MEQ TABCR PO STA (07:22)
[2017-12-28] MEDS: INSULIN ASPART 100 UNITS/ML 3 ML PEN SC SCH ×2 (08:49→12:39)
[2017-12-28] MEDS: METRONIDAZOLE 500 MG TAB PO SCH ×2 (08:52→14:28)
[2017-12-28] MEDS: CIPROFLOXACIN 500 MG TAB PO SCH (08:52)
[2017-12-28] MEDS: CARVEDILOL 12.5 MG TAB PO SCH (08:53)
[2017-12-28] MEDS: PANTOprazole SOD 40 MG TAB PO SCH (08:53)
[2017-12-28] MEDS: TORSEMIDE 20 MG TAB PO SCH (08:53)
[2017-12-28] MEDS ORDERED: CLON0.1T12 PO (13:44)
--- NOTE | 2017-12-28 13:46 | Discharge Instructions ---
Discharge Instructions Date of Service Dec 28, 2017. Admission Reason for Admission: Acute Gi Bleed Discharge Discharge Diagnosis / Problem: acute gi bleed, anemia Discharge Goals Goal(s): Decrease discomfort Activity Recommendations Activity Limitations: resume your previous activity . Instructions / Follow-Up Instructions / Follow-Up FOLLOWUP WITH FAMILY DOCTOR ON December AT 1:45PM. FOLLOWUP WITH PULMONARY 1-2 WEEKS BLOOD PRESSURE FOLLOWUP WITH FAMILY DOCTOR. MAY NEED TO TAPER OFF CLONIDINE. DIABETES FOLLOWUP WITH FAMILY DOCTOR. ( STEROID INDUCED?) LAB: BMP IN 4-5 DAYS AND FOLLOW RESULTS WITH FAMILY DOCTOR REGARDING HYPOKALEMIA. TO START ASPIRIN HOME DOSE FROM Thursday01/01/18. Current Hospital Diet Patient's current hospital diet: Diabetes Type 2 Diet, AHA Diet (Heart Healthy) , Regular Diet Discharge Diet Recommended Diet: AHA Diet (Heart Healthy), Diabetes Type 2 Diet Pending Studies Studies pending at discharge: no Laboratory Results Hemoglobin A1c Test 12/22/17 05:30 Range/Units Estimated Average Glucose 240 mg/dl Hemoglobin A1c 10.0 H 4.5-5.6 % Medical Emergencies . Who to Call and When: Medical Emergencies: If at any time you feel your situation is an emergency, please call 911 immediately. . Non-Emergent Contact Non-Emergency issues call your: Primary Care Provider . . "Provider Documentation" section prepared by Joaquin Mack. .
[2017-12-28] MEDS ORDERED: LORA-741 PO (13:52)
[2017-12-28] MEDS ORDERED: CLONIDINE HCL 0.1 MG TAB PO ONE (14:00)
--- NOTE | 2017-12-28 19:15 | Progress Note ---
Internal Med Progress Note Date of Service: Dec 28, 2017. Provider Documentation: SUBJECTIVE: resting in bed comfortably says bhis sob on exertion is same and will not getter better and wants to go home follows with pulmonary hb stable eating fine hemodynamics stable OBJECTIVE: Vital Signs-as noted below Exam: General-alert and oriented. Not in distress ENT-Normal hearing Neck-no neck masses Lungs-cta b/l no wheezing or crackles Heart-S1 and S2 heard regular rate and rhythm no murmurs Abdomen-Soft bowel sounds present non tender no distension Extremities-no edema no erythema Neuro-alert and awake moves extremities Lab data as noted below. ASSESSMENT & PLAN: 77-year-old female presents with rectal bleeding. Acute GI bleeding- presented with rectal bleeding ct scan shows diverticulosis mostly diverticular bleed but stopped patient refused colonoscopy GI on board had couple of bloody bowel movements again 12/23/17 Planned for colonoscopy but was not done as he desaturated in endo suit if colonoscopy is required plan to transfer to tertiary care because of his resp status no more bleeding since and his hb stable at 9.2 on ppi to restart aspirin after few days Shortness of breath in setting of interstitial lung disease-requiring more continuous oxygen use. May be contributed by recent decrease in prednisone. CXR unremarkable To Continue management per outpatient pulmonology. 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 possible ischemic colitis as per Gi to treat with cipro and Flagyl for one week #7 stopped abx Hypertension- on coreg and clonidine didn't received clonidine in hospital as BP was low on presentation reduced clonidine to 0.1mg bid at discharge f/u with pcp CKD stage III-at baseline monitor Discharged home with home health Vital Signs: Date Time Temp Pulse Resp B/P (MAP) Pulse Ox O2 Delivery O2 Flow Rate FiO2 12/28/17 15:55 36.4 116 39 91 Nasal Cannula 12/28/17 12:26 36.4 116 39 127/80 (96) 91 Nasal Cannula 3.5 12/28/17 12:00 94 Nasal Cannula 3.0 Mask 12/28/17 08:55 96 Nasal Cannula 3.0 12/28/17 08:34 36.6 115 26 113/62 (79) 80 Nasal Cannula 3.5 12/28/17 08:00 94 Nasal Cannula 3.0 Mask 12/28/17 04:18 89 26 94 Mask 10.0 12/28/17 04:00 92 Oxymask 10.0 12/28/17 04:00 Nasal Cannula 3.0 12/28/17 03:51 37.0 87 23 90/61 (71) 12/27/17 23:59 Nasal Cannula 3.0 12/27/17 23:44 37.0 81 22 101/53 (69) 94 Nasal Cannula 3.0 12/27/17 20:38 Nasal Cannula 3.0 12/27/17 19:54 36.6 97 18 132/72 (92) 94 Nasal Cannula 3.0 Humidified Oxygen Lab Results: Results Past 24 Hours Test 12/27/17 20:00 12/28/17 05:30 12/28/17 07:06 12/28/17 11:16 Range/Units Bedside Glucose 163 131 200 70-99 mg/dl White Blood Count 18.30 4.8-10.8 K/uL Red Blood Count 2.82 4.7-6.1 M/uL Hemoglobin 9.2 14.0-18.0 g/dL Hematocrit 28.1 42-52 % Mean Corpuscular Volume 99.6 80-100 fL Mean Corpuscular Hemoglobin 32.6 25-34 pg Mean Corpuscular Hemoglobin Concent 32.7 32-36 g/dl Platelet Count 299 130-400 K/uL Mean Platelet Volume 9.3 7.4-10.4 fL Neutrophils (%) (Auto) 48.9 % Lymphocytes (%) (Auto) 33.9 % Monocytes (%) (Auto) 12.5 % Eosinophils (%) (Auto) 3.6 % Basophils (%) (Auto) 0.2 % Neutrophils # (Auto) 8.96 1.4-6.5 K/uL Lymphocytes # (Auto) 6.20 1.2-3.4 K/uL Monocytes # (Auto) 2.29 0.11-0.59 K/uL Eosinophils # (Auto) 0.66 0-0.5 K/uL Basophils # (Auto) 0.03 0-0.2 K/uL RDW Standard Deviation 61.8 36.4-46.3 fL RDW Coefficient of Variation 17.1 11.5-14.5 % Immature Granulocyte % (Auto) 0.9 % Immature Granulocyte # (Auto) 0.16 0.00-0.02 K/uL Hypersegmented Polys OCCASIONAL [place] Bodies OCCASIONAL Sodium Level 136 136-145 mmol/L Potassium Level 3.4 3.5-5.1 mmol/L Chloride Level 102 98-107 mmol/L Carbon Dioxide Level 26 21-32 mmol/L Anion Gap 8.0 3-11 mmol/L Blood Urea Nitrogen 17 7-18 mg/dl Creatinine 1.42 0.60-1.40 mg/dl Est Creatinine Clear Calc Drug Dose 38.6 ml/min Estimated GFR () 54.1 Estimated GFR (Non- 46.6 BUN/Creatinine Ratio 12.0 10-20 Random Glucose 132 70-99 mg/dl Calcium Level 8.1 8.5-10.1 mg/dl Magnesium Level 1.8 1.8-2.4 mg/dl
--- NOTE | 2017-12-28 19:41 | Discharge Summary ---
Discharge Summary Date of Service Dec 28, 2017. 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 Pneumomediastinum is identified in the lower chest. This is of indeterminant etiology and significance. 2. There are no acute infectious or inflammatory findings in the abdomen or pelvis. 3. Changes of chronic interstitial lung disease are seen at the lung bases. 4. Cardiomegaly and small pericardial effusion. 5. Advanced colonic diverticulosis without CT evidence of acute diverticulitis. 6. The appearance of the liver suggests early changes of cirrhosis. 7. The spleen is not identified and presumed surgically absent. 8. Small bilateral nonobstructing renal calculi. CT CHEST: 1. Anterior pneumomediastinum. 2. Trace amount of air extends to the lower right cervical region. 3. Extensive fibrotic and interstitial change throughout both hemithoraces. Consultations: GI CT SURGERY Medication Reconciliation New Medications: Clonidine Hcl (Catapres) 0.1 Mg Tab 1 TAB PO BID for 30 Days, #60 TAB 1 Refill Continued Medications: Albuterol Sulf (Proventil 0.083% 2.5MG/3ML) 2.5 Mg/3 Ml Nebu 2.5 MG INH Q4H PRN for sob/wheezing, EA Albuterol Sulfate (Proair Respiclick) 108 Mcg/Act Aer 2 PUFFS INH QID PRN for sob/wheezing Aspirin (Aspirin EC Low Dose) 81 Mg Ectab 81 MG PO DAILY Carvedilol (Coreg) 12.5 Mg Tab 12.5 MG PO BID for 90 Days, #180 TAB 1 Refill Insulin Aspart (Novolog Flexpen) 100 Units/Ml Inj 0 SQ UD per sliding scale Lorazepam (Ativan) 0.5 Mg Tab 0.5 MG PO TID PRN for Anxiety, #10 TAB Pantoprazole (Protonix) 40 Mg Tab 40 MG PO DAILY, #30 TAB Pravastatin Sodium (Pravastatin Sodium) 80 Mg Tab 80 MG PO DAILY for 30 Days, #30 TAB 5 Refills Torsemide (Demadex) 10 Mg Tab 10 MG PO DAILY, TAB Discontinued Medications: Clonidine Hcl (Catapres) 0.2 Mg Tab 1 TAB PO BID for 30 Days, #60 TAB 5 Refills Admission Information HPI (per Admitting provider): The patient is a 77-year-old male who presented to the ER ([facility]) with rectal bleeding. He denies any abdominal pain, nausea, or chest pain. He does report some worsening shortness of breath and recently underwent an echocardiogram as outpatient revealing an EF of 60-64%, grade 1 diastolic dysfunction, P AP of 36 mmHg. He reports becoming more dependent on oxygen over the last 3 weeks and is currently using 2 L per nasal cannula. He reports dizziness and lightheadedness as well as generalized weakness and malaise over the past 2-3 weeks. He has a history of pulmonary fibrosis and has been on high -dose steroids chronically. He is currently not taking any steroids. He takes baby aspirin every day but denies other blood thinners. He denies any current change in appetite. Earlier this evening he and his son had a large dinner and when he was saying goodbye he felt the urge to have a large bowel movement he reports being incontinent of bloody stool in the stool did have large clots in it and was mixed dark and bright red blood. He has reported some loose stools once daily for the past 3 weeks but denies chery diarrhea. He reports a history of esophageal bleeding 30 years ago and reports a history of hiatal hernia for which he is on protonix daily. He was recently admitted to [facility] from 10/30-10 15 new onset diabetes that is a result of chronic steroid use. He denies alcohol use. Vital signs in the ER were blood pressure 132/81 with a pulse 92, respirations 87% on 3 L nasal cannula, afebrile. The patient reports he reports occasional chills which are unchanged. He reports more continuous oxygen needs where he was only on it when he ambulated 3-4 weeks ago. 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 Stearns at [facility]. Physical Exam (per Admitting): General Appearance: WD/WN, no apparent distress Head: normocephalic, atraumatic Eyes: normal inspection, PERRL, sclerae normal ENT: hearing grossly normal, pharynx normal, + pertinent finding (Mouth appears dry) Neck: supple, no JVD, trachea midline Respiratory/Chest: lungs clear, normal breath sounds, no respiratory distress, no accessory muscle use Cardiovascular: regular rate, rhythm, no edema, no gallop, no JVD, no murmur , normal peripheral pulses Abdomen/GI: normal bowel sounds, non tender, soft, no organomegaly, + pertinent finding (Nondistended) Extremities/Musculoskelatal: normal inspection, no calf tenderness, no pedal edema, normal range of motion Neurologic/Psych: handle attacher II-XII nml as tested, no motor/sensory deficits, alert , normal mood/affect, oriented x 3 Skin: normal color, warm/dry, no rash Hospital Course 77-year-old female presents with rectal bleeding. Acute GI bleeding- presented with rectal bleeding ct scan shows diverticulosis mostly diverticular bleed but stopped patient refused colonoscopy GI on board had couple of bloody bowel movements again 12/23/17 Planned for colonoscopy but was not done as he desaturated in endo suit if colonoscopy is required plan to transfer to tertiary care because of his resp status no more bleeding since and his hb stable at 9.2 on ppi to restart aspirin after few days Shortness of breath in setting of interstitial lung disease-requiring more continuous oxygen use. May be contributed by recent decrease in prednisone. CXR unremarkable To Continue management per outpatient pulmonology. 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 possible ischemic colitis as per Gi to treat with cipro and Flagyl for one week #7 stopped abx Hypertension- on coreg and clonidine didn't received clonidine in hospital as BP was low on presentation reduced clonidine to 0.1mg bid at discharge f/u with pcp CKD stage III-at baseline monitor Discharged home with home health Total time spent on discharge = 35MINUTES This includes examination of the patient, discharge planning, medication reconciliation, and communication with other providers. Discharge Instructions Discharge Instructions Date of Service Dec 28, 2017. Admission Reason for Admission: Acute Gi Bleed Discharge Discharge Diagnosis / Problem: acute gi bleed, anemia Discharge Goals Goal(s): Decrease discomfort Activity Recommendations Activity Limitations: resume your previous activity . Instructions / Follow-Up Instructions / Follow-Up FOLLOWUP WITH FAMILY DOCTOR ON December AT 1:45PM. FOLLOWUP WITH PULMONARY 1-2 WEEKS BLOOD PRESSURE FOLLOWUP WITH FAMILY DOCTOR. MAY NEED TO TAPER OFF CLONIDINE. DIABETES FOLLOWUP WITH FAMILY DOCTOR. ( STEROID INDUCED?) LAB: BMP IN 4-5 DAYS AND FOLLOW RESULTS WITH FAMILY DOCTOR REGARDING HYPOKALEMIA. TO START ASPIRIN HOME DOSE FROM Thursday01/01/18. Current Hospital Diet Patient's current hospital diet: Diabetes Type 2 Diet, AHA Diet (Heart Healthy) , Regular Diet Discharge Diet Recommended Diet: AHA Diet (Heart Healthy), Diabetes Type 2 Diet Pending Studies Studies pending at discharge: no Laboratory Results Hemoglobin A1c Test 12/22/17 05:30 Range/Units Estimated Average Glucose 240 mg/dl Hemoglobin A1c 10.0 H 4.5-5.6 % Medical Emergencies . Who to Call and When: Medical Emergencies: If at any time you feel your situation is an emergency, please call 911 immediately. . Non-Emergent Contact Non-Emergency issues call your: Primary Care Provider . . "Provider Documentation" section prepared by Joaquin Mack.
== END 2017-12-28 16:34 | disposition home health service (06) | DRG 378 ==
LOC: UNDOADMIN 04:56 → C.2E 04:56
PROVIDERS: ADMIT Hospitalist; ATTEND Internal Medicine
DX: K57.91 Diverticulosis of intestine, part unspecified, without perforation or abscess with bleeding (principal); J84.9 Interstitial pulmonary disease, unspecified; Z99.81 Dependence on supplemental oxygen; Z86.73 Personal history of transient ischemic attack (TIA), and cerebral infarction without residual deficits; N18.3 Chronic kidney disease, stage 3 (moderate); T38.0X5A Adverse effect of glucocorticoids and synthetic analogues, initial encounter; I65.29 Occlusion and stenosis of unspecified carotid artery; I12.9 Hypertensive chronic kidney disease with stage 1 through stage 4 chronic kidney disease, or unspecified chronic kidney disease; E09.9 Drug or chemical induced diabetes mellitus without complications; Z88.0 Allergy status to penicillin; Z79.82 Long term (current) use of aspirin; D64.9 Anemia, unspecified; J98.2 Interstitial emphysema; E66.9 Obesity, unspecified; Z87.891 Personal history of nicotine dependence; Z53.20 Procedure and treatment not carried out because of patient's decision for unspecified reasons

== ENCOUNTER 2018-01-01 15:50 | Inpatient (IN) | payer OTHER ==
[~2018-01-01] VITALS: Ht 160 cm; Wt 78.9 kg
[~2018-01-01 15:50] MED LIST: ALBINS/ INH; ALBU18002 INH; ASPEC81 PO; CARV12.52 PO; CLON0.1T12 PO; LORA-741 PO; NVLGIPEN SQ; PANT40TA PO; PRAV80TA2 PO; TORS10TA14 PO
[2018-01-01] MEDS ORDERED: ALBUT/IPRATROP 3MG/0.5MG NEB 3 ML VIAL INH ONE (16:00)
[2018-01-01 16:05] VITALS: PULSE 114; O2SAT 100
--- NOTE | 2018-01-01 16:05 | EMERGENCY ROOM VISIT NOTE ---
History Report prepared by Judith: Slick Matthews Under the Supervision of: Dr. Nazario Lynn M.D. First contact with patient: 15:50 Stated Complaint: SOB History of Present Illness The patient is a 77 year old male who presents to the Emergency Room with complaints of SOB that began yesterday and has acutely worsened today. The patient reports coughing. Per EMS, he received 2 Duonebs en route with mild improvement. He denies using a breathing treatment before. Per his , the patient has not had any previous episodes of SOB. She states the patient has not had black and tarry stool or syncopal episodes. He denies chest pain and leg swelling. He denies a history of Afib, pulmonary embolism. History limited secondary to patient being severely ill and unable to speak. He was recently admitted to hospital for GI Bleed. Arrives by EMS. Source of History: patient, spouse/significant other History Limited By: AMS Onset: 1 day ago Position: other (lungs) Quality: other (shortness of breath) Timing: worsening Associated Symptoms: + cough, + SOB, No LOC, No chest pain, No melena Note: Patient denies leg swelling. Review of Systems See HPI for pertinent positives & negatives. Unable to obtain ROS secondary to patient being short of breath. 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 Social History Smoking Status: Former Smoker Drug Use: none Marital Status: Occupation Status: retired Current/Historical Medications Scheduled Aspirin (Aspirin EC Low Dose), 81 MG PO DAILY Carvedilol (Coreg), 12.5 MG PO BID Clonidine Hcl (Catapres), 1 TAB PO BID Insulin Aspart (Novolog Flexpen), 0 SQ UD Pantoprazole (Protonix), 40 MG PO DAILY Pravastatin Sodium (Pravastatin Sodium), 80 MG PO DAILY Scheduled PRN Albuterol Sulf (Proventil 0.083% 2.5MG/3ML), 2.5 MG INH Q4H PRN for sob/wheezing Albuterol Sulfate (Proair Respiclick), 2 PUFFS INH QID PRN for sob/wheezing Allergies Coded Allergies: Penicillins (Verified Allergy, Unknown, BLISTERS, 01/01/18) Physical Exam Vital Signs Date Time Temp Pulse Resp B/P (MAP) Pulse Ox O2 Delivery O2 Flow Rate FiO2 01/01/18 20:30 100 18 96/60 98 Room Air 01/01/18 18:30 115 30 102/63 99 BiPAP 50 01/01/18 16:42 115 01/01/18 16:24 99 BiPAP 50 01/01/18 16:20 116 42 125/86 100 BiPAP 50 01/01/18 16:05 114 44 100 BiPAP/CPAP 50 01/01/18 16:05 114 100 50 01/01/18 15:55 37.3 115 48 124/84 66 Room Air 01/01/18 15:55 66 Room Air Physical Exam GENERAL: Patient is severely ill appearing and in no acute distress. Unable to speak. EYES: No scleral icterus, unremarkable pupils. ENT: Mucous membranes moist, no nasal congestion. NECK: No masses appreciated, no meningismus, trachea is midline. RESPIRATORY: Severely dyspneic. Tachypneic. Prolonged expiratory time bilaterally. Clear to auscultation and equal bilaterally. No wheeze, no rhonchi. CARDIOVASCULAR: Regular rate and rhythm. No murmurs, rubs, gallops appreciated. GASTROINTESTINAL: Abdomen soft, nontender, no peritonitis. Bowel sounds positive. No masses appreciated. BACK: No midline tenderness, no CVA tenderness EXTREMITIES: Mottled extremities. Normal motion all extremities, no cyanosis, no edema. NEUROLOGIC: Alert and oriented, no acute motor or sensory deficits, no focal weakness, cranial nerves grossly intact. SKIN: No rash, no jaundice, no diaphoresis. Medical Decision & Procedures ER Provider Diagnostic Interpretation: Radiology results and stated below per my review and radiologist interpretation: CHEST ONE VIEW PORTABLE CLINICAL HISTORY: SHOB dyspnea COMPARISON STUDY: 12/25/2017 FINDINGS: Diffuse parenchymal fibrosis considered similar compared to the prior study. No evidence for superimposed infiltrate. Moderate stable cardia megaly. Diaphragms smooth. IMPRESSION: Stable diffuse bilateral parenchymal fibrosis. Stable cardiomegaly. No acute or interval process. The above report was generated using voice recognition software. It may contain grammatical, syntax or spelling errors. Electronically signed by: Manuel Campbell M.D. 01/01/2018 4:56 PM Dictated Date/Time: 01/01/2018 4:56 PM (CHEST FOR PE) ANGIO WITH CLINICAL HISTORY: 77 years-old Male presenting with ^CHEST PAIN--IF ABLE PLEASE EVALUATE THORACIC AORTA WELL, shortness of breath. TECHNIQUE: Multidetector CT angiography of the chest was performed after administration of intravenous contrast. 3-D volumetric and/or maximum intensity projection (MIP) images were subsequently reconstructed for review. IV contrast: 93 mL of Optiray 320. A dose lowering technique was used consistent with the principles of ALARA (as low as reasonably achievable). COMPARISON: Chest CT without contrast from 12/22/2017. CT DOSE (mGy.cm): The estimated cumulative dose is 471.91 mGy.cm. 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 Pulmonary vasculature: The study is adequate for assessment of the pulmonary vascular tree. Acute pulmonary embolus in the segmental and subsegmental branches of the right lower lobe to the posterior basal region. No pulmonary emboli identified in the left lung. Main pulmonary artery is not enlarged. No flattening of the interventricular septum. No intracardiac filling defect. Reflux of contrast into the intrahepatic IVC. Remaining chest: On soft tissue windows, normal thyroid and thoracic inlet. Prominent lymph nodes in the right paratracheal and subcarinal regions as well as the right hilum. An index node in the right paratracheal region measures 11 mm in the short axis. This is increased since the most recent prior exam. Atherosclerosis of the aorta. Multichamber enlargement of the heart. Coronary artery calcification. No pericardial or pleural effusion. Hypodensity in the left kidney likely simple cyst. Bilateral nephrolithiasis. No hydronephrosis. Calculi are nonobstructing. On lung windows, low lung volumes with significant basilar predominant groundglass opacity, reticulation, and bronchiectasis. Patchy groundglass has increased since the prior exam, which affects all 5 lobes to varying degrees. No significant honeycombing. The apices are largely spared. Central airways patent. On bone windows, normal osseous structures. IMPRESSION: 1. Acute pulmonary embolus in segmental and subsegmental branches to the right lower lobe. No CT evidence of right heart strain. 2. Interval development of patchy groundglass opacities. This is concerning for either an acute infectious etiology or acute on chronic exacerbation of underlying fibrotic lung disease. 3. 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 No honeycombing to suggest a UIP pattern. 4. Suspected reactive mediastinal and right hilar lymphadenopathy, new from prior. 5. Bilateral nephrolithiasis. The report will be called/faxed according to standard departmental protocol. Electronically signed by: Justino Amezcua M.D. 01/01/2018 5:59 PM Dictated Date/Time: 01/01/2018 5:52 PM Laboratory Results 01/01/18 16:19 Red Blood Count 3.17, Mean Corpuscular Volume 102.2, Mean Corpuscular Hemoglobin 33.8, Mean Corpuscular Hemoglobin Concent 33.0, Mean Platelet Volume 9.9, Neutrophils (%) (Auto) 53.1, Lymphocytes (%) (Auto) 32.0, Monocytes (%) ( Auto) 11.1, Eosinophils (%) (Auto) 2.1, Basophils (%) (Auto) 0.5, Neutrophils # (Auto) 9.25, Lymphocytes # (Auto) 5.57, Monocytes # (Auto) 1.93, Eosinophils # ( Auto) 0.36, Basophils # (Auto) 0.09 01/01/18 16:19 Test 01/01/18 16:19 01/01/18 16:38 01/01/18 16:45 01/01/18 16:49 White Blood Count 17.41 K/uL (4.8-10.8) Red Blood Count 3.17 M/uL (4.7-6.1) Hemoglobin 10.7 g/dL (14.0-18.0) Hematocrit 32.4 % (42-52) Mean Corpuscular Volume 102.2 fL (80-100) Mean Corpuscular Hemoglobin 33.8 pg (25-34) Mean Corpuscular Hemoglobin Concent 33.0 g/dl (32-36) Platelet Count 498 K/uL (130-400) Mean Platelet Volume 9.9 fL (7.4-10.4) Neutrophils (%) (Auto) 53.1 % Lymphocytes (%) (Auto) 32.0 % Monocytes (%) (Auto) 11.1 % Eosinophils (%) (Auto) 2.1 % Basophils (%) (Auto) 0.5 % Neutrophils # (Auto) 9.25 K/uL (1.4-6.5) Lymphocytes # (Auto) 5.57 K/uL (1.2-3.4) Monocytes # (Auto) 1.93 K/uL (0.11-0.59) Eosinophils # (Auto) 0.36 K/uL (0-0.5) Basophils # (Auto) 0.09 K/uL (0-0.2) RDW Standard Deviation 67.6 fL (36.4-46.3) RDW Coefficient of Variation 19.0 % (11.5-14.5) Immature Granulocyte % (Auto) 1.2 % Immature Granulocyte # (Auto) 0.21 K/uL (0.00-0.02) Nucleated RBC Absolute Count (auto) 0.11 K/uL (0-0) Nucleated Red Blood Cells % 0.6 % Polychromasia 1+ Anisocytosis PRESENT Macrocytosis PRESENT [place] Bodies 1+ Est Creatinine Clear Calc Drug Dose 42.4 ml/min Estimated GFR () 59.6 Estimated GFR (Non- 51.4 BUN/Creatinine Ratio 15.5 (10-20) Calcium Level 8.7 mg/dl (8.5-10.1) Total Creatine Kinase 54 U/L (39-308) Creatine Kinase MB 3.2 ng/ml (0.5-3.6) Creatine Kinase MB Ratio 5.9 (0-3.0) Troponin I 0.760 ng/ml (0-0.045) Pro-B-Type Natriuretic Peptide 1573 pg/ml (0-1800) Arterial Blood pH 7.48 (7.35-7.45) Arterial Blood Partial Pressure CO2 33 mmHg (35-46) Arterial Blood Partial Pressure O2 109 mm/Hg (80-95) Arterial Blood HCO3 24 mmol/L (19-24) Arterial Blood Oxygen Saturation 97.8 % (90-95) Arterial Blood Base Excess 1.2 mEq/L (-9-1.8) Arterial Blood Gas Delivery 50% Lawson Test POS (POS) Bedside Lactic Acid Venous 1.58 mmol/L (0.90-1.70) Bedside Hemoglobin 12.2 g/dl (14.0-18.0) Bedside Hematocrit 36 % (42-52) Bedside Sodium 135 mEq/L (135-144) Bedside Potassium 4.4 mEq/L (3.3-5.0) Bedside Chloride 104 mEq/L (101-112) Bedside Total CO2 23 mEq/l (24-31) Anion Gap 13.0 mmol/L (16-25) Bedside Blood Urea Nitrogen 20 mg/dl (7-18) Bedside Creatinine 1.2 mg/dl (0.6-1.3) Bedside Glucose (other) 177 mg/dl (70-99) Bedside Ionized Calcium (Alyssa) 0.91 mmol/l (1.12-1.32) Test 01/01/18 18:46 Prothrombin Time 12.9 SECONDS (9.0-12.0) Prothromb Time International Ratio 1.2 (0.9-1.1) Activated Partial Thromboplast Time 23.8 SECONDS (21.0-31.0) Partial Thromboplastin Ratio 0.9 Medications Administered Medications (Trade) Dose Ordered Sig/Aure Route Start Time Stop Time Status Last Admin Dose Admin Albuterol/ Ipratropium (Duoneb) 12 ml ONE ONCE INH 01/01/18 16:00 01/01/18 16:01 DC 01/01/18 16:20 12 ML Heparin Sodium/ Dextrose 500 ml @ 24 mls/hr [id number] IV 01/01/18 18:30 01/31/18 18:29 01/01/18 19:02 24 MLS/HR Heparin Sodium (Porcine) (Heparin Sq 5000 Unit/0.5ml) 5,000 unit STK-MED ONCE .ROUTE 01/01/18 18:34 01/01/18 18:35 DC 01/01/18 19:03 5,000 UNIT ECG Per My Interpretation Indication: SOB/dyspnea Rate (beats per minute): 115 Rhythm: sinus tachycardia Findings: no acute ischemic change, no ectopy, other (poor baseline) ED Course 1550: The patient was evaluated in room B6. A complete history and physical exam was performed. 1625: I checked on the patient and he is feeling better. His heart rate is at 110. His lungs are opening up on the BiPAP. His oxygen saturation is at 100%. He denies any pain right now. 1700: I checked on the patient and his family is at his bedside. Per his , the patient has had SOB that began yesterday and has acutely worsened today. She denies any black and tarry stools, syncope, or passing out. He has never had previous episodes before. 1725: I checked on the patient and he is stable. 1814: I checked on the patient and he had a massive GI bleed 1 week ago. 1823: I checked on the patient and he is tachycardiac. He is satting well on BiPAP. I discussed the high danger of starting a blood thinner vs. dieing from a PE. The family agrees and he is starting Heparin. They understand he could bleed and from this. 1831: Dr. Lopez is aware of the patient. 1840: Discussed the patient's case with Dr. Lopez. The patient will be evaluated for further treatment and disposition. 185: Discussed the patient's case with Dr. Patel. The patient will be evaluated for further treatment and disposition. 1922: I checked on the patient and he is comfortable. He is smiling. He is satting at 99%. His heart rate is 106. He is no distress. 1930: Upon reevaluation, the patient is doing well. Discussed results and treatment plan with the patient. He verbalized understanding and agreement with the treatment plan. The patient will be evaluated for further management. Medical Decision Differential: Infectious, Reactive Airway Disease, Pneumonia, Pneumothorax, COPD , CHF, ACS, Pulmonary Embolism, MSK, GI, Dissection, amongst other etiologies entertained. 77 yr old male arrives with complaint of shortness of breath and hypoxia after recent hospital stay for upper gi bleed. He is in acute respiratory failure boarding on need for intubation. Mild prolonged expiratory times but really not significant crackles nor wheezing. Emergently placed on Bipap and given history did feel that neb reasonable. Very tachy on arrival though this started improving on Bipap and with his improving Oxygenation. EKG without ischemia. Sats improved quickly on BiPAP. With return of labs and no clear change of CXR, very likely PE given recent admission. CT PE done which did reveal PEs as expected. I had a very long discussion with him and his and they understand the risks of IV heparin but also it's benefits. They agree with IV blood thinners. Type/Screen ordered just in case need. Breathing comfortably on Bipap and sating well. Was a bit tachycardic still which actually started improving after IV heparin initiated. He is without complaints. He is not candidate for TPA given recent GI bleed and not hypotensive. Many re-evals of patient throughout and discussions with hospitalist service. Medication Reconcilliation Current Medication List: was personally reviewed by me Blood Pressure Screening Patient's blood pressure: Normal blood pressure Blood pressure disposition: Did not require urgent referral Consults Time Called: 183 Consulting Physician: Dr. Lopez Returned Call: [phone] Discussed the patient's case. The patient will be evaluated for further treatment and disposition. Additional Consults: Time Called: 1849 Consulted Physician: Dr. Patel Returned Call: [phone] Additional Comments: Discussed the patient's case. The patient will be evaluated for further treatment and disposition. Impression Primary Impression: Pulmonary embolism Additional Impressions: Fibrotic lung diseases Hypoxia Acute respiratory failure with hypoxia Critical Care I have personally spent greater than 90 minutes of critical care time in the direct management of this patient. This was a life/limb threatening event. This includes time spent evaluating patient, direct bedside care, chart review, placing orders, interpretation of diagnostic studies, discussion with consultants, patient, and family members, as well as other required patient management activities. This 90 minutes is in excess of all separately billable procedures. Scribe Attestation The scribe's documentation has been prepared under my direction and personally reviewed by me in its entirety. I confirm that the note above accurately reflects all work, treatment, procedures, and medical decision making performed by me. Departure Information Referrals Robby Stearns M.D. (PCP) Problem Qualifiers
[2018-01-01 16:51] LABS: HEMATOCRIT 32.4 % (42-52); HEMOGLOBIN 10.7 g/dL (14.0-18.0); MEAN CELL VOLUME 102.2 fL (80-100); MEAN CORPUSCULAR HEMOGLOBIN 33.8 pg (25-34); MEAN PLATELET VOLUME 9.9 fL (7.4-10.4); NUCLEATED RED BLOOD CELL ABS 0.11 K/uL (0-0); PLATELET COUNT 498 K/uL (130-400); RED CELL DISTRIBUTION WIDTH SD 67.6 fL (36.4-46.3); WHITE BLOOD COUNT 17.41 K/uL (4.8-10.8)
--- NOTE | 2018-01-01 16:58 | DIAGNOSTIC IMAGING REPORT ---
CHEST ONE VIEW PORTABLE CLINICAL HISTORY: SHOB dyspnea COMPARISON STUDY: 12/25/2017 FINDINGS: Diffuse parenchymal fibrosis considered similar compared to the prior study. No evidence for superimposed infiltrate. Moderate stable cardia megaly. Diaphragms smooth. IMPRESSION: Stable diffuse bilateral parenchymal fibrosis. Stable cardiomegaly. No acute or interval process. The above report was generated using voice recognition software. It may contain grammatical, syntax or spelling errors. Electronically signed by: Manuel Campbell M.D. 01/01/2018 4:56 PM Dictated Date/Time: 01/01/2018 4:56 PM
[2018-01-01 17:02] LABS: ISTAT CREATININE 1.2 mg/dl (0.6-1.3); ISTAT IONIZED CALCIUM 0.91 mmol/l (1.12-1.32); ISTAT POTASSIUM 4.4 mEq/L (3.3-5.0)
[2018-01-01 17:22] LABS: CALCIUM 8.7 mg/dl (8.5-10.1); CREATININE 1.31 mg/dl (0.60-1.40); POTASSIUM 4.3 mmol/L (3.5-5.1)
[2018-01-01 17:30] LABS: BASO % 0.5 %; BASO ABS # 0.09 K/uL (0-0.2); EOS % 2.1 %; EOS ABS # 0.36 K/uL (0-0.5); IG# 0.21 K/uL (0.00-0.02); LYMPH ABS # 5.57 K/uL (1.2-3.4); MONO % 11.1 %; MONO ABS # 1.93 K/uL (0.11-0.59); NEUT % 53.1 %; NEUT ABS # 9.25 K/uL (1.4-6.5)
[2018-01-01] MEDS ORDERED: OPTIRAY 320 IV PRN (17:30)
[2018-01-01 17:36] LABS: CKMB 3.2 ng/ml (0.5-3.6)
--- NOTE | 2018-01-01 18:00 | DIAGNOSTIC IMAGING REPORT ---
(CHEST FOR PE) ANGIO WITH CLINICAL HISTORY: 77 years-old Male presenting with ^CHEST PAIN--IF ABLE PLEASE EVALUATE THORACIC AORTA WELL, shortness of breath. TECHNIQUE: Multidetector CT angiography of the chest was performed after administration of intravenous contrast. 3-D volumetric and/or maximum intensity projection (MIP) images were subsequently reconstructed for review. IV contrast: 93 mL of Optiray 320. A dose lowering technique was used consistent with the principles of ALARA (as low as reasonably achievable). COMPARISON: Chest CT without contrast from 12/22/2017. CT DOSE (mGy.cm): The estimated cumulative dose is 471.91 mGy.cm. 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 Pulmonary vasculature: The study is adequate for assessment of the pulmonary vascular tree. Acute pulmonary embolus in the segmental and subsegmental branches of the right lower lobe to the posterior basal region. No pulmonary emboli identified in the left lung. Main pulmonary artery is not enlarged. No flattening of the interventricular septum. No intracardiac filling defect. Reflux of contrast into the intrahepatic IVC. Remaining chest: On soft tissue windows, normal thyroid and thoracic inlet. Prominent lymph nodes in the right paratracheal and subcarinal regions as well as the right hilum. An index node in the right paratracheal region measures 11 mm in the short axis. This is increased since the most recent prior exam. Atherosclerosis of the aorta. Multichamber enlargement of the heart. Coronary artery calcification. No pericardial or pleural effusion. Hypodensity in the left kidney likely simple cyst. Bilateral nephrolithiasis. No hydronephrosis. Calculi are nonobstructing. On lung windows, low lung volumes with significant basilar predominant groundglass opacity, reticulation, and bronchiectasis. Patchy groundglass has increased since the prior exam, which affects all 5 lobes to varying degrees. No significant honeycombing. The apices are largely spared. Central airways patent. On bone windows, normal osseous structures. IMPRESSION: 1. Acute pulmonary embolus in segmental and subsegmental branches to the right lower lobe. No CT evidence of right heart strain. 2. Interval development of patchy groundglass opacities. This is concerning for either an acute infectious etiology or acute on chronic exacerbation of underlying fibrotic lung disease. 3. 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 No honeycombing to suggest a UIP pattern. 4. Suspected reactive mediastinal and right hilar lymphadenopathy, new from prior. 5. Bilateral nephrolithiasis. The report will be called/faxed according to standard departmental protocol. Electronically signed by: Justino Amezcua M.D. 01/01/2018 5:59 PM Dictated Date/Time: 01/01/2018 5:52 PM
[2018-01-01] MEDS ORDERED: HEPARIN SOD (PORCINE) 1000 UNIT/ML 10 ML VIAL IV STA (18:23)
[2018-01-01] MEDS ORDERED: HEPARIN 25,000 UNIT/500ML D5W 500 ML IV SCH (18:30)
[2018-01-01] MEDS ORDERED: HEPARIN SOD 5000 UNIT/0.5 ML CARP ONE (18:34)
[2018-01-01 19:11] LABS: INR 1.2 (0.9-1.1); PTT PATIENT 23.8 SECONDS (21.0-31.0)
--- NOTE | 2018-01-01 19:31 | History and Physical ---
History & Physical Date & Time of Service: Jan 01, 2018 at 19:31 Chief Complaint: SOB Primary Care Physician: Robby Stearns M.D. History of Present Illness Source: patient, family (/son present at bedside) This is a 77-year-old male with past medical history of GI bleed, CHF with grade 1 diastolic dysfunction, chronic respiratory failure/pulmonary fibrosis on 3 L oxygen continuous, 3 CKD stage III. Patient was recently admitted to [facility] from December 21 - December 28 for lower GI bleed. Possible diverticular bleed. Colonoscopy was not done as patient became hypoxic prior to the procedure. Patient presents to the ER with severe respiratory distress, tachypnea, hypoxia- found to be 87% saturation while on 3 L by nasal cannula Patient was placed on BiPAP Per patient's , since being discharged from hospital, patient continued to be very weak, had dizziness spell worsening of shortness of breath with minimum activity. Stayed in his recliner most part of the day, only would get up to use the bathroom. This morning patient was found struggling to breathe, tachypneic, diaphoretic. Patient's increased the oxygen supply to 6 L, still remains in significant respiratory distress Brought to ER In the ER with 4 L nasal cannula patient's initial pulse oximetry was 66%, placed on BiPAP, pulse ox improved to more than 90% patient was tachypneic with respiratory rate 48, tachycardic CT chest with contrast done showed bilateral pulmonary emboli. 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 Social History Smoking Status: Never Smoker Drug Use: none Marital Status: Housing status: lives with significant other Occupational Status: retired Immunizations History of Influenza Vaccine: Yes Influenza Vaccine Date: Jul 17, 2017 History of Tetanus Vaccine?: Unknown History of Pneumococcal: Yes Pneumococcal Date: Jun 26, 2016 History of Hepatitis B Vaccine: Unknown Multi-Drug Resistant Organisms History of MDRO: No Allergies Coded Allergies: Penicillins (Verified Allergy, Unknown, BLISTERS, 01/01/18) Home Medications Scheduled Aspirin (Aspirin EC Low Dose), 81 MG PO DAILY Carvedilol (Coreg), 12.5 MG PO BID Clonidine Hcl (Catapres), 1 TAB PO BID Insulin Aspart (Novolog Flexpen), 0 SQ UD Pantoprazole (Protonix), 40 MG PO DAILY Pravastatin Sodium (Pravastatin Sodium), 80 MG PO DAILY Scheduled PRN Albuterol Sulf (Proventil 0.083% 2.5MG/3ML), 2.5 MG INH Q4H PRN for sob/wheezing Albuterol Sulfate (Proair Respiclick), 2 PUFFS INH QID PRN for sob/wheezing Review of Systems Constitutional: + fever, + chills, + weakness, + fatigue Respiratory: + cough, + sputum, + wheezing, + shortness of breath, + dyspnea on exertion, + dyspnea at rest Cardiovascular: + chest pain, + orthopnea, + PND, + palpitations Abdomen: No pain, No nausea, No vomiting, No diarrhea, No constipation, No GI bleeding, No problem reported Genitourinary - Male: No hematuria, No dysuria, No urinary frequency, No urinary urgency, No urinary hesitancy, No urinary retention, No urinary incontinence, No penile discharge, No lesions, No impotence, No problem reported Neurologic: + weakness, + numbness/tingling, + vertigo, + balance problems Physical Exam Vital Signs Date Time Temp Pulse Resp B/P (MAP) Pulse Ox O2 Delivery O2 Flow Rate FiO2 01/01/18 18:30 115 30 102/63 99 BiPAP 50 01/01/18 16:42 115 01/01/18 16:24 99 BiPAP 50 01/01/18 16:20 116 42 125/86 100 BiPAP 50 01/01/18 16:05 114 44 100 BiPAP/CPAP 50 01/01/18 16:05 114 100 50 01/01/18 15:55 37.3 115 48 124/84 66 Room Air 01/01/18 15:55 66 Room Air General Appearance: + moderate distress Head: normocephalic, atraumatic Eyes: sclerae normal ENT: + pertinent finding (On BiPAP) Neck: trachea midline Respiratory/Chest: + respiratory distress, + decreased breath sounds ( Decreased bowel sound), + accessory muscle use, + wheezing Cardiovascular: + tachycardia Abdomen/GI: non tender, soft Extremities/Musculoskelatal: + pedal edema Neurologic/Psych: alert Diagnostics Laboratory Results Results Past 24 Hours Test 01/01/18 16:19 01/01/18 16:38 01/01/18 16:45 01/01/18 16:49 Range/Units White Blood Count 17.41 4.8-10.8 K/uL Red Blood Count 3.17 4.7-6.1 M/uL Hemoglobin 10.7 14.0-18.0 g/dL Hematocrit 32.4 42-52 % Mean Corpuscular Volume 102.2 80-100 fL Mean Corpuscular Hemoglobin 33.8 25-34 pg Mean Corpuscular Hemoglobin Concent 33.0 32-36 g/dl Platelet Count 498 130-400 K/uL Mean Platelet Volume 9.9 7.4-10.4 fL Neutrophils (%) (Auto) 53.1 % Lymphocytes (%) (Auto) 32.0 % Monocytes (%) (Auto) 11.1 % Eosinophils (%) (Auto) 2.1 % Basophils (%) (Auto) 0.5 % Neutrophils # (Auto) 9.25 1.4-6.5 K/uL Lymphocytes # (Auto) 5.57 1.2-3.4 K/uL Monocytes # (Auto) 1.93 0.11-0.59 K/uL Eosinophils # (Auto) 0.36 0-0.5 K/uL Basophils # (Auto) 0.09 0-0.2 K/uL RDW Standard Deviation 67.6 36.4-46.3 fL RDW Coefficient of Variation 19.0 11.5-14.5 % Immature Granulocyte % (Auto) 1.2 % Immature Granulocyte # (Auto) 0.21 0.00-0.02 K/uL Nucleated RBC Absolute Count (auto) 0.11 0-0 K/uL Nucleated Red Blood Cells % 0.6 % Polychromasia 1+ Anisocytosis PRESENT Macrocytosis PRESENT [place] Bodies 1+ Sodium Level 135 136-145 mmol/L Potassium Level 4.3 3.5-5.1 mmol/L Chloride Level 103 98-107 mmol/L Carbon Dioxide Level 24 21-32 mmol/L Anion Gap 8.0 13.0 16-25 mmol/L Blood Urea Nitrogen 20 7-18 mg/dl Creatinine 1.31 0.60-1.40 mg/dl Est Creatinine Clear Calc Drug Dose 42.4 ml/min Estimated GFR () 59.6 Estimated GFR (Non- 51.4 BUN/Creatinine Ratio 15.5 10-20 Random Glucose 167 70-99 mg/dl Calcium Level 8.7 8.5-10.1 mg/dl Total Creatine Kinase 54 39-308 U/L Creatine Kinase MB 3.2 0.5-3.6 ng/ml Creatine Kinase MB Ratio 5.9 0-3.0 Troponin I 0.760 0-0.045 ng/ml Pro-B-Type Natriuretic Peptide 1573 0-1800 pg/ml Arterial Blood pH 7.48 7.35-7.45 Arterial Blood Partial Pressure CO2 33 35-46 mmHg Arterial Blood Partial Pressure O2 109 80-95 mm/Hg Arterial Blood HCO3 24 19-24 mmol/L Arterial Blood Oxygen Saturation 97.8 90-95 % Arterial Blood Base Excess 1.2 -9-1.8 mEq/L Arterial Blood Gas Delivery 50% Lawson Test POS POS Bedside Lactic Acid Venous 1.58 0.90-1.70 mmol/L Bedside Hemoglobin 12.2 14.0-18.0 g/dl Bedside Hematocrit 36 42-52 % Bedside Sodium 135 135-144 mEq/L Bedside Potassium 4.4 3.3-5.0 mEq/L Bedside Chloride 104 101-112 mEq/L Bedside Total CO2 23 24-31 mEq/l Bedside Blood Urea Nitrogen 20 7-18 mg/dl Bedside Creatinine 1.2 0.6-1.3 mg/dl Bedside Glucose (other) 177 70-99 mg/dl Bedside Ionized Calcium (Alyssa) 0.91 1.12-1.32 mmol/l Test 01/01/18 18:46 Range/Units Prothrombin Time 12.9 9.0-12.0 SECONDS Prothromb Time International Ratio 1.2 0.9-1.1 Activated Partial Thromboplast Time 23.8 21.0-31.0 SECONDS Partial Thromboplastin Ratio 0.9 Microbiology Results 01/01/18 Blood Culture, Received Pending 01/01/18 Blood Culture, Received Pending Diagnostic Radiology CT chest with contrast: 1. Acute pulmonary embolus in segmental and subsegmental branches to the right lower lobe no CT evidence of right heart strain. 2. Interval development of patchy groundglass opacities. This is concerning for either an acute infectious etiology or acute on chronic exacerbation of underlying fibrotic lung disease. 3. 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 No honeycombing to suggest an UIP pattern 4. Suspected reactive mediastinal and right hilar lymphadenopathy, new from prior Impression Assessment and Plan Hypoxemic respiratory failure: Acute on chronic hypoxemic respiratory failure, possible secondary to pulmonary emboli Patient has advanced interstitial lung disease on chronic oxygen 2 L via nasal cannula Developed acute hypoxemic respiratory failure while on supplemental oxygen Patient is placed on BiPAP May need mechanical intubation if progressive respiratory failure on BiPAP Discussed with patient and family okay for ventilation ventilator support- CT chest with contrast shows patchy groundglass opacities, possible infectious etiology Patient will be empirically treated with Levaquin (allergy to penicillin) IV vancomycin Blood dense sputum culture ordered Pulmonary emboli: Possible causing his acute respiratory failure Patient has been sedentary since discharge from hospital on December 28 Started on IV heparin weight-based protocol H&H will be monitored closely due to recent history of GI bleed Order for lower extremity Doppler to rule out DVT Recent GI bleed: Recent admission on 12/21 -12/28/2017: For possible acute diverticular bleeding Hemoglobin stable Monitor closely every 8 hours while on therapeutic anticoagulation Elevated troponin: Possible secondary to hypoxemia, respiratory distress Serial cardiac markers will be monitored Resting echo in the morning CKD stage III Renal function approximate baseline 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 Hypertension: Borderline hypotension systolic in low 100 Continue Coreg with holding parameters Hold clonidine CODE STATUS: Full code DVT prophylaxis: IV heparin weight-based protocol Disposition: Patient remains critically ill will be admitted to intensive care unit Case discussed with on-call farm 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
[2018-01-01] MEDS ORDERED: GLUCOSE 40% GEL 15 GM TUBE PO PRN (20:00)
[2018-01-01] MEDS ORDERED: ONDANSETRON INJ 2 MG/ML 2 ML VIAL IV PRN (20:00)
[2018-01-01] MEDS ORDERED: ICU PROTOCOL FOR HYPERGLYCEMIA PRN ×2 (20:00→23:45)
[2018-01-01] MEDS ORDERED: DEXTROSE 50% 50 ML SYR IV PRN (20:00)
[2018-01-01] MEDS ORDERED: NITROGLYCERIN 0.4 MG SL PER TAB CHARGE SL PRN (20:00)
[2018-01-01] MEDS ORDERED: GLUCAGON FOR INJ 1 MG VIAL SQ PRN (20:00)
[2018-01-01] MEDS ORDERED: GLUCOSE 10 TABS/TUBE PO PRN (20:00)
[2018-01-01] MEDS ORDERED: VANCOMYCIN CONSULT ACTIVE PRN ×2 (20:15)
[2018-01-01] MEDS ORDERED: LEVAQUIN 750MG / 150ML D5W IV ONE (20:15)
[2018-01-01] MEDS ORDERED: PHARMACY GLYCEMIC MGMT CONSULT PRN (20:15)
[2018-01-01] MEDS ORDERED: ALBUTEROL HFA 8 GM INHALER INH PRN (20:30)
[2018-01-01] MEDS ORDERED: VANCOMYCIN IV 2,000 MG in SODIUM CHLORIDE 0.9% 500ML 500 ML IV SCH (20:30)
[2018-01-01 21:28] VITALS: BP 106/64; PULSE 92; TEMP 37.2; O2SAT 94; BMI 29.9
[2018-01-01 21:41] VITALS: PULSE 105; O2SAT 91
[2018-01-01] MEDS: HEPARIN 25,000 UNIT/500ML D5W 500 ML IV SCH (21:50)
[2018-01-01 22:00] VITALS: BP 104/65; PULSE 93; O2SAT 95
[2018-01-01] MEDS ORDERED: LEVOFLOXACIN 750MG / D5W IV SCH (22:00)
[2018-01-01 22:28] LABS: HEMATOCRIT 29.7 % (42-52); HEMOGLOBIN 9.7 g/dL (14.0-18.0)
--- NOTE | 2018-01-01 22:43 | Critical Care Consultation ---
Critical Care Consultation Date of Consultation: Jan 01, 2018. Attending Physician: Stu Kay M.D. Reason for Consultation: 77-year-old male with a significant past medical history of pulmonary fibrosis, CHF, chronic kidney disease, and recent lower GI bleed presenting with acute on chronic hypoxic respiratory failure with new pulmonary emboli with moderate clot burden resulting in hypoxemia responding to noninvasive ventilatory techniques. History of Present Illness Patient is a 77-year-old male who was recently admitted to this facility for a presumed diverticular bleed. He has a significant past medical history for pulmonary fibrosis requiring 3 L nasal cannula at home. During his stay at this facility, the patient never required transfusion. His symptoms of bloody stools have resolved. Patient does report that he has been weak since the time of discharge. He has had severe shortness of breath over the last few days which is worse with any exertion. Today, the patient had significant respiratory distress with oxygen saturations in the 60s. He was brought to the emergency department where he responded well to oxygen therapy as well as BiPAP. His tachypnea improved as did his oxygen saturation. He was found to have a moderate leukocytosis of greater than 17,000. He has no significant anemia. No significant electrolyte abnormalities appreciated. Troponin was elevated at greater than 0.7. CTA was obtained which demonstrated new RIGHT lower lobe PE with moderate clot burden. There is no RIGHT-sided heart strain appreciated on CT. Patient received Levaquin and vancomycin per admitting service. In addition, he was started on a heparin drip. Upon arrival in the ICU, the patient is resting comfortably with BiPAP in place. He actually offers no complaints at this point and feels much better than his initial presentation. He admits to having shortness of breath of the last several days which worsened today. He denies any chest discomfort or pleuritic pain. He denies any headaches, dizziness, lightheadedness, nausea, vomiting, hematemesis, hematochezia, melena, hematuria, dysuria, or abdominal discomfort. Patient lives at home with his who also does not get around very well. 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 Noncontributory Social History Smoking Status: Never Smoker Smokeless Tobacco Use: No Alcohol Use: none Drug Use: none Marital Status: Housing Status: lives with family Occupation Status: retired Allergies Coded Allergies: Penicillins (Verified Allergy, Unknown, BLISTERS, 01/01/18) Home Medications Scheduled Aspirin (Aspirin EC Low Dose), 81 MG PO DAILY Carvedilol (Coreg), 12.5 MG PO BID Clonidine Hcl (Catapres), 1 TAB PO BID Insulin Aspart (Novolog Flexpen), 0 SQ UD Pantoprazole (Protonix), 40 MG PO DAILY Pravastatin Sodium (Pravastatin Sodium), 80 MG PO DAILY Scheduled PRN Albuterol Sulf (Proventil 0.083% 2.5MG/3ML), 2.5 MG INH Q4H PRN for sob/wheezing Albuterol Sulfate (Proair Respiclick), 2 PUFFS INH QID PRN for sob/wheezing Current Inpatient Medications Current Inpatient Medications Medications (Trade) Dose Ordered Sig/Aure Route Start Time Stop Time Status Last Admin Dose Admin Ioversol (Optiray 320) 111 ml UD PRN IV 01/01/18 17:30 01/05/18 17:29 Levalbuterol (Xopenex 1.25MG/ 0.5ML Neb) 1.25 mg Q4R INH 01/02/18 00:00 02/01/18 00:00 Ipratropium Weiser (Atrovent 0.02% 0.5MG/2.5ML Neb) 0.5 mg Q4R INH 01/02/18 00:00 02/01/18 00:00 Nitroglycerin (Nitrostat Tab) 0.4 mg UD PRN SL 01/01/18 20:00 01/31/18 19:59 Ondansetron HCl (Zofran Inj) 4 mg Q6H PRN IV 01/01/18 20:00 01/31/18 19:59 Pantoprazole Sodium 40 mg/ Syringe 10 ml @ 5 mls/min DAILY IV 01/02/18 09:00 02/01/18 08:59 Miscellaneous Information (Icu Protocol For Hyperglycemia) 1 ea PRN PRN N/A 01/01/18 20:00 01/03/18 19:59 Carvedilol (Coreg Tab) 12.5 mg BID PO 01/02/18 09:00 02/01/18 08:59 Albuterol (Ventolin Hfa Inhaler) 2 puffs QID PRN INH 01/01/18 20:30 01/31/18 20:29 Pravastatin Sodium (Pravachol Tab) 80 mg DAILY PO 01/02/18 09:00 02/01/18 08:59 Insulin Human Regular (novoLIN-R) SLIDING SCALE IF C... ACHS SC 01/01/18 21:00 01/31/18 20:59 UNV Glucose (Glucose 40% Gel) 15-30 GRAMS 15 GRAMS... UD PRN PO 01/01/18 20:00 01/31/18 19:59 Glucose (Glucose Chew Tab) 4-8 Tablets 4 Tabl... UD PRN PO 01/01/18 20:00 01/31/18 19:59 Dextrose (Dextrose 50% 50ML Syringe) 25-50ML OF 50% DW IV FOR... UD PRN IV 01/01/18 20:00 01/31/18 19:59 Glucagon (Glucagon Inj) 1 mg UD PRN SQ 01/01/18 20:00 01/31/18 19:59 Miscellaneous Information (Consult Glycemic Management Pharmacy) 1 ea UD PRN N/A 01/01/18 20:15 01/31/18 20:14 Levofloxacin 750 mg/Prmx 150 ml @ 100 mls/hr Q24H IV 01/01/18 20:15 01/08/18 20:14 UNV Vancomycin HCl 1000 mg/Sodium Chloride 270 ml @ 125 mls/hr Q12 IV 01/01/18 21:00 01/08/18 20:59 UNV Vancomycin HCl 2000 mg/Sodium Chloride 540 ml @ 200 mls/hr TODAY@2030 IV 01/01/18 20:30 01/01/18 23:59 01/01/18 21:47 200 MLS/HR Miscellaneous Information (Consult) 1 ea UD PRN N/A 01/01/18 20:15 01/31/18 20:14 Levofloxacin 750 mg/Prmx 150 ml @ 100 mls/hr TODAY@2200 IV 01/01/18 22:00 01/01/18 23:29 01/01/18 21:48 100 MLS/HR Heparin Sodium/ Dextrose 500 ml @ 24 mls/hr [id number] IV 01/01/18 21:45 01/31/18 21:44 01/01/18 21:50 24 MLS/HR Review of Systems A complete 10-point Review of Systems was discussed with the patient, with pertinent positives and negatives listed in the History of Present Illness. All remaining Review of Systems questions can be considered negative unless otherwise specified. Physical Exam Date Time Temp Pulse Resp B/P (MAP) Pulse Ox O2 Delivery O2 Flow Rate FiO2 01/01/18 22:27 40 01/01/18 22:00 93 26 104/65 (78) 95 BiPAP 50 01/01/18 21:41 105 91 50 01/01/18 21:28 37.2 92 26 106/64 94 BiPAP 50 01/01/18 21:00 100 18 96/60 98 01/01/18 20:30 100 18 96/60 98 Room Air 01/01/18 18:30 115 30 102/63 99 BiPAP 50 01/01/18 16:42 115 01/01/18 16:24 99 BiPAP 50 01/01/18 16:20 116 42 125/86 100 BiPAP 50 01/01/18 16:05 114 44 100 BiPAP/CPAP 50 01/01/18 16:05 114 100 50 01/01/18 15:55 37.3 115 48 124/84 66 Room Air 01/01/18 15:55 66 Room Air VITAL SIGNS - Vital signs and nursing notes were reviewed. GENERAL - 77-year-old male appearing his stated age who is in no acute distress. Communicates well with provider and answers questions appropriately. SKIN - Without rashes. HEAD - NC/AT. EYES - PERRL with EOMI bilaterally. Sclera anicteric. EARS - No deformities of external structures noted on gross examination bilaterally. NOSE - Midline and without cyanosis. MOUTH/OROPHARYNX - Without perioral cyanosis. Buccal mucosa pink and moist. NECK - Neck with FROM. Supple to palpation. LUNGS - Chest wall symmetric without accessory muscle use, intercostals retractions, or central cyanosis. Normal vesicular breath sounds CTA B/L. No wheezes, rales, or rhonchi appreciated. CARDIAC - RRR with S1/S2. No murmur, rubs, or gallops appreciated. ABDOMEN - Abdominal contour obese without pulsations or visible masses. BS normoactive all four quadrants. No tenderness, palpable masses, hepatosplenomegaly, or ascites noted. EXTREMITIES - No clubbing or peripheral cyanosis. No pretibial edema present. +3 /5 radial and dorsalis pedis pulses palpated throughout. +5/5 strength noted in UE/LE bilaterally. NEUROLOGIC - Cranial nerves II through XII grossly intact. PSYCH - A&Ox3 and cooperates fully with examiner. Pt is very pleasant and interacts well with examiner. Laboratory Results Last 24 Hours Test 01/01/18 16:19 01/01/18 16:38 01/01/18 16:45 01/01/18 16:49 White Blood Count 17.41 K/uL Red Blood Count 3.17 M/uL Hemoglobin 10.7 g/dL Hematocrit 32.4 % Mean Corpuscular Volume 102.2 fL Mean Corpuscular Hemoglobin 33.8 pg Mean Corpuscular Hemoglobin Concent 33.0 g/dl Platelet Count 498 K/uL Mean Platelet Volume 9.9 fL Neutrophils (%) (Auto) 53.1 % Lymphocytes (%) (Auto) 32.0 % Monocytes (%) (Auto) 11.1 % Eosinophils (%) (Auto) 2.1 % Basophils (%) (Auto) 0.5 % Neutrophils # (Auto) 9.25 K/uL Lymphocytes # (Auto) 5.57 K/uL Monocytes # (Auto) 1.93 K/uL Eosinophils # (Auto) 0.36 K/uL Basophils # (Auto) 0.09 K/uL RDW Standard Deviation 67.6 fL RDW Coefficient of Variation 19.0 % Immature Granulocyte % (Auto) 1.2 % Immature Granulocyte # (Auto) 0.21 K/uL Nucleated RBC Absolute Count (auto) 0.11 K/uL Nucleated Red Blood Cells % 0.6 % Polychromasia 1+ Anisocytosis PRESENT Macrocytosis PRESENT [place] Bodies 1+ Sodium Level 135 mmol/L Potassium Level 4.3 mmol/L Chloride Level 103 mmol/L Carbon Dioxide Level 24 mmol/L Anion Gap 8.0 mmol/L 13.0 mmol/L Blood Urea Nitrogen 20 mg/dl Creatinine 1.31 mg/dl Est Creatinine Clear Calc Drug Dose 42.4 ml/min Estimated GFR () 59.6 Estimated GFR (Non- 51.4 BUN/Creatinine Ratio 15.5 Random Glucose 167 mg/dl Calcium Level 8.7 mg/dl Total Creatine Kinase 54 U/L Creatine Kinase MB 3.2 ng/ml Creatine Kinase MB Ratio 5.9 Troponin I 0.760 ng/ml Pro-B-Type Natriuretic Peptide 1573 pg/ml Arterial Blood pH 7.48 Arterial Blood Partial Pressure CO2 33 mmHg Arterial Blood Partial Pressure O2 109 mm/Hg Arterial Blood HCO3 24 mmol/L Arterial Blood Oxygen Saturation 97.8 % Arterial Blood Base Excess 1.2 mEq/L Arterial Blood Gas Delivery 50% Lawson Test POS Bedside Lactic Acid Venous 1.58 mmol/L Bedside Hemoglobin 12.2 g/dl Bedside Hematocrit 36 % Bedside Sodium 135 mEq/L Bedside Potassium 4.4 mEq/L Bedside Chloride 104 mEq/L Bedside Total CO2 23 mEq/l Bedside Blood Urea Nitrogen 20 mg/dl Bedside Creatinine 1.2 mg/dl Bedside Glucose (other) 177 mg/dl Bedside Ionized Calcium (Alyssa) 0.91 mmol/l Test 01/01/18 18:46 01/01/18 22:16 Prothrombin Time 12.9 SECONDS Prothromb Time International Ratio 1.2 Activated Partial Thromboplast Time 23.8 SECONDS Partial Thromboplastin Ratio 0.9 Hemoglobin 9.7 g/dL Hematocrit 29.7 % Diagnostic Results Radiological imaging and reports were reviewed by myself. Radiologist's Interpretation as follows: CHEST ONE VIEW PORTABLE CLINICAL HISTORY: SHOB dyspnea COMPARISON STUDY: 12/25/2017 FINDINGS: Diffuse parenchymal fibrosis considered similar compared to the prior study. No evidence for superimposed infiltrate. Moderate stable cardia megaly. Diaphragms smooth. IMPRESSION: Stable diffuse bilateral parenchymal fibrosis. Stable cardiomegaly. No acute or interval process. (CHEST FOR PE) ANGIO WITH CLINICAL HISTORY: 77 years-old Male presenting with ^CHEST PAIN--IF ABLE PLEASE EVALUATE THORACIC AORTA WELL, shortness of breath. TECHNIQUE: Multidetector CT angiography of the chest was performed after administration of intravenous contrast. 3-D volumetric and/or maximum intensity projection (MIP) images were subsequently reconstructed for review. IV contrast: 93 mL of Optiray 320. A dose lowering technique was used consistent with the principles of ALARA (as low as reasonably achievable). COMPARISON: Chest CT without contrast from 12/22/2017. CT DOSE (mGy.cm): The estimated cumulative dose is 471.91 mGy.cm. FINDINGS: Associate Professor topogram: Low lung volumes and chronic lung disease. Pulmonary vasculature: The study is adequate for assessment of the pulmonary vascular tree. Acute pulmonary embolus in the segmental and subsegmental branches of the right lower lobe to the posterior basal region. No pulmonary emboli identified in the left lung. Main pulmonary artery is not enlarged. No flattening of the interventricular septum. No intracardiac filling defect. Reflux of contrast into the intrahepatic IVC. Remaining chest: On soft tissue windows, normal thyroid and thoracic inlet. Prominent lymph nodes in the right paratracheal and subcarinal regions as well as the right hilum. An index node in the right paratracheal region measures 11 mm in the short axis. This is increased since the most recent prior exam. Atherosclerosis of the aorta. Multichamber enlargement of the heart. Coronary artery calcification. No pericardial or pleural effusion. Hypodensity in the left kidney likely simple cyst. Bilateral nephrolithiasis. No hydronephrosis. Calculi are nonobstructing. On lung windows, low lung volumes with significant basilar predominant groundglass opacity, reticulation, and bronchiectasis. Patchy groundglass has increased since the prior exam, which affects all 5 lobes to varying degrees. No significant honeycombing. The apices are largely spared. Central airways patent. On bone windows, normal osseous structures. IMPRESSION: 1. Acute pulmonary embolus in segmental and subsegmental branches to the right lower lobe. No CT evidence of right heart strain. 2. Interval development of patchy groundglass opacities. This is concerning for either an acute infectious etiology or acute on chronic exacerbation of underlying fibrotic lung disease. 3. 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 No honeycombing to suggest a UIP pattern. 4. Suspected reactive mediastinal and right hilar lymphadenopathy, new from prior. 5. Bilateral nephrolithiasis. VENOUS DOPPLER LWR EXT BILA CLINICAL HISTORY: 77 years-old Male presenting with rule out dvt . TECHNIQUE: Real-time grayscale and color and spectral Doppler ultrasound imaging of the veins of the bilateral lower extremities was performed. Compression and augmentation were also utilized. COMPARISON: None. FINDINGS: Right: Common femoral vein: Patent. Exaggerated phasicity could suggest elevated heart failure. Greater saphenous vein: Patent. Deep femoral vein: Patent. Femoral vein: Patent. A portion of the mid femoral vein was not visualized due to overlying dressing. Popliteal vein: Patent. Calf veins: Limited visualization. Left: Common femoral vein: Patent. Exaggerated phasicity could suggest heart failure. Greater saphenous vein: Patent. Deep femoral vein: Patent. Femoral vein: Patent. Popliteal vein: Patent. Calf veins: Limited visualization secondary to subcutaneous edema. Other: Suspected thrombus in a superficial vein of the left lower extremity at the level of the popliteal fossa. Additionally, a 1.7 x 3.2 x 0.8 cm hypoechoic region noted in the mid left calf. IMPRESSION: 1. No evidence of deep venous thrombosis. 2. Possible small intramuscular hematoma in the mid left calf. 3. Suspected superficial venous thrombosis in the left popliteal fossa. Assessment & Plan (1) Pulmonary embolism (2) Acute respiratory failure with hypoxia (3) Hypoxia (4) Fibrotic lung diseases (5) Hypertension (6) CKD (chronic kidney disease), stage III (7) ILD (interstitial lung disease) (8) Chronic hypoxemic respiratory failure (9) Steroid-induced diabetes mellitus Reason Critically Ill: 77-year-old male with a significant past medical history of pulmonary fibrosis, CHF, chronic kidney disease, and recent lower GI bleed presenting with acute on chronic hypoxic respiratory failure with new pulmonary emboli with moderate clot burden resulting in hypoxemia responding to noninvasive ventilatory techniques. Neuro - * CAM ICU: NEGATIVE * h/o CVA * Currently on Heparin gtt - monitor closely for any neuro changes. Cardiac - * Elevated Troponin (NSTEMI): * Likely 2/2 acute PE w/ increasing cardiac demand in the setting of CKDIII. * Trend Troponins * Monitor on telemetry. * Heparin gtt * AM Echo for evaluation of RIGHT-sided heart strain (none noted on CTA) and evidence of cor pulmonale. This may be expected in an O2 dependent pt w/ chronic pulmonary fibrosis. * EKG for any Chest Pain * Hypertension: * Continue home Rx as BP tolerates. Respiratory - * Acute on Chronic Hypoxic Respiratory Failure w/ New Pulmonary Embolism: * Requiring BiPAP to maintain O2 saturations. Titrate down to NC as s/s improve. * Treat underlying sources (i.e. PE, ??pneumonia) * Currently on Heparin gtt - will monitor closely in the setting of recent Lower GIB. * Recent hospitalization with patchy infiltrative changes on CTA. Will treat for HCAP as he certainly would be at higher risk. (See ID) * Nebs * Serial CXRs * In regards to the acute PE, there was no noted RIGHT heart strain on CT alone. The patient does have elevated troponin levels and a worsening O2 requirement. While this patient would likely benefit from catheter directed versus systemic TPA, in light of his recent Lower GIB, the patient is currently on maximum therapy of heparin as TPA would certainly be contraindicated at this point. Will continue to use noninvasive ventilatory techniques as the patient would be a poor candidate for intubation 2/2 underlying lung pathology. Did discuss this with the patient and he WOULD wish to undergo a trial of intubation if his s/s were to worsen. GI - * Prophylaxis: Protonix * Recent LOWER GIB (suspected diverticular bleed): * Agree with serial monitoring of H&H while requiring Heparin gtt. * Added Type/Cross PRBCs. RENAL/LYTES - * CKD III w/ recent IVC burden: * Monitor PRPs closely * IVF while NPO: Normosol@50mL/hr - * No concerns at this point. ENDO - * h/o DM: * ISS per protocol. * gtt PRN in the acutely ill patient. * No h/o Thyroid disease. HEME - * Currently on Heparin gtt w/ Recent LOWER GI Bleed (suspected diverticular bleed): * Patient certainly requiring heparin 2/2 PE and no other great alternative to treatment at this point. * Agree with anticoagulation at this point with close monitor w/ Serial H&Hs. * Added Type/Cross ID - * Possible Infiltrative changes on CTA: * In light of recent hospitalization and high risk state for HCAP, will treat aggressively in the acutely ill phase. While reviewing the patient's CTA, his lower lung field disease appears about the same from recent admission. He does have a moderate leukocytosis today, but this has been apparently his normal per recent labs. Regardless, with recent hospitalization, significant h/o pulmonary fibrosis, worsening O2 requirement, and new PE, I feel that antibiotic treatment in certainly appropriate until we see how he responds to treatment for PE. * Placed on Levaquin/Vanc per primary service. * Added Primaxin for gram negative and pseudomonal coverage. * Will check Lactate as well as ProCal. LINES/IV ACCESS - * PIVs intact DVT PROPHYLAXIS - * Heparin gtt currently I have personally spent 45 minutes of critical care time in the direct management of this patient. This is a life/limb threatening event. This includes time spent evaluating patient, direct bedside care, chart review, placing orders, interpretation of diagnostic studies, discussion with consultants, patient, and family members, as well as other required patient management activities. This time is exclusive of all separately billable procedures, and teaching time and separate from and in addition to any other critical care service time. Thank you for this consultation allow us to be part of this patient's care. Please refer to my attending physician's documentation for any further recommendations. The patient was seen, examined independently, agree with assessment and plan of my colleague George Kessler, for further details you may defer to my following notes. Problem Qualifiers (1) Pulmonary embolism: Chronicity: acute
[2018-01-01 23:01] VITALS: BP 116/71; PULSE 88; O2SAT 96
[2018-01-01] MEDS ORDERED: INSULIN ASPART 100 UNITS/ML 3 ML PEN SC STA (23:05)
[2018-01-01 23:11] VITALS: PULSE 114; PULSE 88; O2SAT 97
[2018-01-01] MEDS: LEVALBUTEROL 1.25MG/0.5ML NEB INH SCH (23:11)
[2018-01-01] MEDS: IPRATROPIUM BROMIDE NEB SOLN 0.02% 2.5 ML VIAL INH SCH (23:11)
--- NOTE | 2018-01-01 23:12 | DIAGNOSTIC IMAGING REPORT ---
VENOUS DOPPLER LWR EXT BILA CLINICAL HISTORY: 77 years-old Male presenting with rule out dvt . TECHNIQUE: Real-time grayscale and color and spectral Doppler ultrasound imaging of the veins of the bilateral lower extremities was performed. Compression and augmentation were also utilized. COMPARISON: None. FINDINGS: Right: Common femoral vein: Patent. Exaggerated phasicity could suggest elevated heart failure. Greater saphenous vein: Patent. Deep femoral vein: Patent. Femoral vein: Patent. A portion of the mid femoral vein was not visualized due to overlying dressing. Popliteal vein: Patent. Calf veins: Limited visualization. Left: Common femoral vein: Patent. Exaggerated phasicity could suggest heart failure. Greater saphenous vein: Patent. Deep femoral vein: Patent. Femoral vein: Patent. Popliteal vein: Patent. Calf veins: Limited visualization secondary to subcutaneous edema. Other: Suspected thrombus in a superficial vein of the left lower extremity at the level of the popliteal fossa. Additionally, a 1.7 x 3.2 x 0.8 cm hypoechoic region noted in the mid left calf. IMPRESSION: 1. No evidence of deep venous thrombosis. 2. Possible small intramuscular hematoma in the mid left calf. 3. Suspected superficial venous thrombosis in the left popliteal fossa. Electronically signed by: Justino Amezcua M.D. 01/01/2018 11:11 PM Dictated Date/Time: 01/01/2018 11:08 PM
[2018-01-01] MEDS ORDERED: LEVOFLOXACIN CONSULT ACTIVE PRN (23:30)
[2018-01-02] VITALS (36 sets, daily range): BP systolic 100–137; BP diastolic 60–86; PULSE 66–90; TEMP 36.5–37.2; O2SAT 88–100
[2018-01-02 01:52] LABS: PTT PATIENT 150.8 SECONDS (21.0-31.0)
[2018-01-02] MEDS ORDERED: IMIPENEM/CILASTATIN CONSULT ACTIVE PRN (02:45)
[2018-01-02] MEDS: NORMOSOL R 1,000 ML IV SCH ×2 (02:54→19:54)
[2018-01-02] MEDS ORDERED: IMIPENEM/CILASTATIN IV 500 MG in DEXTROSE 5% 100ML 100 ML IV SCH (03:00)
[2018-01-02] MEDS: LEVALBUTEROL 1.25MG/0.5ML NEB INH SCH ×6 (03:23→23:16)
[2018-01-02] MEDS: IPRATROPIUM BROMIDE NEB SOLN 0.02% 2.5 ML VIAL INH SCH ×6 (03:23→23:16)
[2018-01-02 03:55] LABS: PTT PATIENT 61.6 SECONDS (21.0-31.0)
[2018-01-02 03:59] LABS: ALBUMIN 1.8 gm/dl (3.4-5.0); CALCIUM 7.7 mg/dl (8.5-10.1); CREATININE 1.19 mg/dl (0.60-1.40)
[2018-01-02] MEDS ORDERED: INSULIN ASPART 100 UNITS/ML 3 ML PEN SC SCH ×3 (04:00→07:30)
[2018-01-02 04:06] LABS: PHOSPHORUS 2.8 mg/dl (2.5-4.9); TOTAL PROTEIN 5.8 gm/dl (6.4-8.2)
[2018-01-02 04:07] LABS: POTASSIUM 3.6 mmol/L (3.5-5.1)
[2018-01-02 06:26] LABS: HEMATOCRIT 28.9 % (42-52); HEMOGLOBIN 9.3 g/dL (14.0-18.0); MEAN CELL VOLUME 102.5 fL (80-100); MEAN CORPUSCULAR HGB CONC 32.2 g/dl (32-36); MEAN PLATELET VOLUME 9.6 fL (7.4-10.4); PLATELET COUNT 432 K/uL (130-400); RED CELL DISTRIBUTION WIDTH CV 18.6 % (11.5-14.5); RED CELL DISTRIBUTION WIDTH SD 67.3 fL (36.4-46.3); WHITE BLOOD COUNT 16.37 K/uL (4.8-10.8)
[2018-01-02 06:52] LABS: INR 1.3 (0.9-1.1)
[2018-01-02 06:59] LABS: PTT PATIENT 56.7 SECONDS (21.0-31.0)
--- NOTE | 2018-01-02 07:08 | DIAGNOSTIC IMAGING REPORT ---
CHEST ONE VIEW PORTABLE CLINICAL HISTORY: respiratory distress dyspnea COMPARISON STUDY: 01/01/2018 FINDINGS: Diffuse parenchymal fibrotic change bilaterally. Slight increase in density left base with suboptimal visibility left hemidiaphragm. Parenchymal fibrosis the right lung remains stable. IMPRESSION: 1. Bilateral parenchymal fibrosis generally stable. 2. Potential superimposed infiltrate left base. The above report was generated using voice recognition software. It may contain grammatical, syntax or spelling errors. Electronically signed by: Manuel Campbell M.D. 01/02/2018 7:07 AM Dictated Date/Time: 01/02/2018 7:06 AM
[2018-01-02 07:37] LABS: BASO % 0.5 %; BASO ABS # 0.08 K/uL (0-0.2); EOS % 3.4 %; EOS ABS # 0.55 K/uL (0-0.5); IG# 0.13 K/uL (0.00-0.02); LYMPH % 34.4 %; LYMPH ABS # 5.63 K/uL (1.2-3.4); MONO % 12.1 %; MONO ABS # 1.98 K/uL (0.11-0.59); NEUT % 48.8 %
[2018-01-02 07:51] LABS: HEMOGLOBIN A1C 8.6 % (4.5-5.6)
[2018-01-02] MEDS: PRAVASTATIN SOD 40 MG TAB PO SCH (09:16)
[2018-01-02] MEDS: PANTOprazole INJ 40 MG in SYRINGE 0 ML IV SCH (09:16)
[2018-01-02] MEDS: IMIPENEM/CILASTATIN IV 300 MG in DEXTROSE 5% 100ML 100 ML IV SCH ×3 (09:16→20:44)
[2018-01-02] MEDS: CARVEDILOL 12.5 MG TAB PO SCH ×2 (09:17→20:44)
[2018-01-02] MEDS ORDERED: INSULIN GLARGINE SOLOSTAR 100 UNITS/ML 3 ML PEN SC ONE (10:00)
--- NOTE | 2018-01-02 10:05 | Pharmacy Progress Note ---
Glycemic Control Intl Consult Date of Service Jan 02, 2018. Scope Glycemic Pharmacist consulted by Dr Lopez on 01/01/18 for glycemic control and to write orders per [facility] inpatient glycemic control protocol Objective Weight (Kilograms): 76.500 Accuchecks BSG (last 24hrs): Test 01/01/18 16:19 01/01/18 23:39 01/02/18 03:00 01/02/18 08:52 Random Glucose 167 mg/dl (70-99) 135 mg/dl (70-99) Bedside Glucose 131 mg/dl (70-99) 123 mg/dl (70-99) Laboratory Data (last 24hrs) Test 01/01/18 16:19 01/01/18 16:49 01/02/18 03:00 01/02/18 05:54 Anion Gap 8.0 mmol/L 13.0 mmol/L 7.0 mmol/L BUN/Creatinine Ratio 15.5 14.7 Blood Urea Nitrogen 20 mg/dl 17 mg/dl Creatinine 1.31 mg/dl 1.19 mg/dl Potassium Level 4.3 mmol/L 3.6 mmol/L Sodium Level 135 mmol/L 137 mmol/L White Blood Count 17.41 K/uL 16.37 K/uL Red Blood Count 3.17 M/uL 2.82 M/uL Hemoglobin 10.7 g/dL 9.3 g/dL Hematocrit 32.4 % 28.9 % Mean Corpuscular Volume 102.2 fL 102.5 fL Mean Corpuscular Hemoglobin 33.8 pg 33.0 pg Mean Corpuscular Hemoglobin Concent 33.0 g/dl 32.2 g/dl Platelet Count 498 K/uL 432 K/uL Mean Platelet Volume 9.9 fL 9.6 fL Neutrophils (%) (Auto) 53.1 % 48.8 % Lymphocytes (%) (Auto) 32.0 % 34.4 % Monocytes (%) (Auto) 11.1 % 12.1 % Eosinophils (%) (Auto) 2.1 % 3.4 % Basophils (%) (Auto) 0.5 % 0.5 % Neutrophils # (Auto) 9.25 K/uL 8.00 K/uL Lymphocytes # (Auto) 5.57 K/uL 5.63 K/uL Monocytes # (Auto) 1.93 K/uL 1.98 K/uL Eosinophils # (Auto) 0.36 K/uL 0.55 K/uL Basophils # (Auto) 0.09 K/uL 0.08 K/uL Hemoglobin A1c 8.6 % HbA1c Test 01/02/18 05:54 Hemoglobin A1c 8.6 % (4.5-5.6) H Recent Pertinent Medications Outpatient Anti-diabetic Regimen: * Novolog per sliding scale * A1c reduced from last admission just a few days ago, which was 10% on 12/27/17 The patient is currently receiving: * Basal insulin: None * Correctional Insulin: Novolog Correction per scale ACHS Goal Range: Low 140 mg/dL - High 180 mg/dL Correction Factor: 30 mg/dL/unit * Prandial insulin: Per carb ratio of 1 unit per 10 grams CHO consumed Risk Factors for Insulin Resistance: * Steroids: Initiating Solu-medrol 40 mg IV q6h - 1st dose at 10 am * Infection: possible HCAP * IVF: Normosol + Heparin drip mixed in dextrose * Diet: NPO Assessment & Plan ASSESSMENT: * 77 y/o male admitted for acute on chronic resp failure and bilateral PE * He has a history of type 2 diabetes, A1c significantly uncontrolled when drawn a week ago but is fairly improved as of today. Previous notes from last admit report A1c related to prior steroid use? * Patient now in ICU and BSGs have been stable, without any insulin coverage needed, however, high dose steroids are being initiated * Will plan to utilize basal/bolus based on insulin calc estimates using weight/ stress of 2 * If this does not control BSGs, standard of care would be to utilize an insulin infusion PLAN FOR INPATIENT GLYCEMIC CONTROL: * Basal insulin with LANTUS 10 units x 1 now w/ 1st dose of Solu-medrol, then * Lantus 13 units BID for BSG 140-180 * Lantus 19 units BID for BSG > 180 * Correctional Insulin with NOVOLOG per scale ACHS or Q6hrs while NPO * Goal Range: Low 120 mg/dL - High 160 mg/dL, to aim for BSGs between 140-180 * Correction Factor: 30 mg/dL/unit * TIGHTEN Nutritional / Prandial insulin per carb ratio of 1 unit per 8 grams CHO consumed for when po intake is advanced * Please note that the plan above was derived based on current level of insulin resistance and hospital stress. These recommendations are appropriate for inpatient admission only. Plan of care upon discharge will need to be reassessed to avoid potential outpatient hypo/hyperglycemia. Thank you.
[2018-01-02] MEDS ORDERED: NURSING VERBAL MED ORDER ONE (10:45)
[2018-01-02] MEDS: METHYLPREDNISOLONE IV 40 MG in SYRINGE 0 ML IV SCH ×3 (10:50→21:50)
--- NOTE | 2018-01-02 12:00 | Progress Note ---
Internal Med Progress Note Date of Service: Jan 02, 2018. Provider Documentation: SUBJECTIVE: The patient does seen and examined in ICU. He was admitted with acute respiratory failure secondary to pulmonary embolism with history of bilateral lung fibrosis. Noted to have community-acquired pneumonia on presentation as well. He feels a little better today and his saturation maintained with BiPAP at this time. Denies to any chest pain palpitation and does not have any nausea and/or vomiting OBJECTIVE: Vital Signs-as noted below Exam: General-mildly distressed at rest Eyes-normal ENT-normal Neck-supple Lungs-decreased breath sounds bilaterally with bibasilar crackles Heart-regular, no murmur appreciated Abdomen-benign, distended, soft, bowel sounds present Extremities-trace edema bilaterally Neuro-alert awake oriented 3, no focal neuro deficit appreciated Lab data as noted below' ASSESSMENT & PLAN: Hypoxemic respiratory failure: Acute on chronic hypoxemic respiratory failure, possible secondary to pulmonary emboli Patient has advanced interstitial lung disease on chronic oxygen 3 L via nasal cannula Complicated by CAP Patient is placed on BiPAP Discussed with patient and family okay for ventilation ventilator support Clinically a little better this AM Appreciate Thoracic Medicine Specialist input CAP CT chest with contrast: 1. Acute pulmonary embolus in segmental and subsegmental branches to the right lower lobe. No CT evidence of right heart strain. 2. Interval development of patchy groundglass opacities. This is concerning for either an acute infectious etiology or acute on chronic exacerbation of underlying fibrotic lung disease. 3. 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 No honeycombing to suggest a UIP pattern. 4. Suspected reactive mediastinal and right hilar lymphadenopathy, new from prior. 5. Bilateral nephrolithiasis. shows patchy groundglass opacities, possible infectious etiology Patient will be empirically treated with Levaquin (allergy to penicillin) IV vancomycin Blood dense sputum culture ordered Pulmonary emboli: Patient has been sedentary since discharge from hospital on December 28 Started on IV heparin weight-based protocol H&H will be monitored closely due to recent history of GI bleed Order for lower extremity Doppler to rule out DVT-NO DVT but has Superficial Thrombophlebitis Recent GI bleed: Recent admission on 12/21 -12/28/2017: For possible acute diverticular bleeding Hemoglobin stable Monitor closely every 8 hours while on therapeutic anticoagulation Elevated troponin: Possible secondary to hypoxemia, respiratory distress Serial cardiac markers will be monitored Increasing serial Troponin Cardiology consulted -appreciate Input CKD stage III Renal function approximate baseline 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 Has been started on small dose of steroid Hypertension: Borderline hypotension systolic in low 100 Continue Coreg with holding parameters Hold clonidine CODE STATUS: Full code DVT prophylaxis: IV heparin weight-based protocol Disposition: Patient remains critically ill will be admitted to intensive care unit Case discussed with on-call announcer Vital Signs: Date Time Temp Pulse Resp B/P (MAP) Pulse Ox O2 Delivery O2 Flow Rate FiO2 01/02/18 11:06 82 28 96 Nasal Cannula 50.0 40 01/02/18 09:01 86 30 132/77 (95) 96 BiPAP 30 01/02/18 08:01 36.5 89 23 137/86 (103) 94 BiPAP 30 01/02/18 08:00 BiPAP 30 01/02/18 07:43 79 24 100 BiPAP/CPAP 50 01/02/18 07:39 79 99 50 01/02/18 07:01 79 26 122/78 (93) 100 BiPAP 50 01/02/18 06:01 79 25 121/69 (86) 99 BiPAP 50 01/02/18 05:02 75 100 30 01/02/18 05:01 72 31 129/76 (93) 100 01/02/18 04:01 36.9 83 29 137/75 (95) 99 BiPAP 50 01/02/18 04:00 BiPAP 50 01/02/18 03:24 88 33 100 BiPAP/CPAP 30 01/02/18 03:24 88 100 30 01/02/18 03:01 86 34 120/65 (83) 94 01/02/18 02:01 86 30 114/66 (82) 94 BiPAP 50 18 01:01 78 31 115/66 (82) 94 18 00:01 37.2 87 30 107/73 (84) 93 BiPAP 50 01/01/18 23:59 BiPAP 50 01/01/18 23:11 114 97 40 01/01/18 23:11 88 25 97 BiPAP/CPAP 40 01/01/18 23:01 88 33 116/71 (86) 96 01/01/18 22:27 40 18 22:00 93 26 104/65 (78) 95 BiPAP 50 01/01/18 21:41 105 91 50 3/23/18 21:28 37.2 92 26 106/64 94 BiPAP 50 01/01/18 21:00 100 18 96/60 98 01/01/18 20:30 100 18 96/60 98 Room Air 01/01/18 18:30 115 30 102/63 99 BiPAP 50 01/01/18 16:42 115 01/01/18 16:24 99 BiPAP 50 01/01/18 16:20 116 42 125/86 100 BiPAP 50 01/01/18 16:05 114 44 100 BiPAP/CPAP 50 01/01/18 16:05 114 100 50 01/01/18 15:55 37.3 115 48 124/84 66 Room Air 01/01/18 15:55 66 Room Air Lab Results: Results Past 24 Hours Test 01/01/18 16:19 01/01/18 16:38 01/01/18 16:45 01/01/18 16:49 Range/Units White Blood Count 17.41 4.8-10.8 K/uL Red Blood Count 3.17 4.7-6.1 M/uL Hemoglobin 10.7 14.0-18.0 g/dL Hematocrit 32.4 42-52 % Mean Corpuscular Volume 102.2 80-100 fL Mean Corpuscular Hemoglobin 33.8 25-34 pg Mean Corpuscular Hemoglobin Concent 33.0 32-36 g/dl Platelet Count 498 130-400 K/uL Mean Platelet Volume 9.9 7.4-10.4 fL Neutrophils (%) (Auto) 53.1 % Lymphocytes (%) (Auto) 32.0 % Monocytes (%) (Auto) 11.1 % Eosinophils (%) (Auto) 2.1 % Basophils (%) (Auto) 0.5 % Neutrophils # (Auto) 9.25 1.4-6.5 K/uL Lymphocytes # (Auto) 5.57 1.2-3.4 K/uL Monocytes # (Auto) 1.93 0.11-0.59 K/uL Eosinophils # (Auto) 0.36 0-0.5 K/uL Basophils # (Auto) 0.09 0-0.2 K/uL RDW Standard Deviation 67.6 36.4-46.3 fL RDW Coefficient of Variation 19.0 11.5-14.5 % Immature Granulocyte % (Auto) 1.2 % Immature Granulocyte # (Auto) 0.21 0.00-0.02 K/uL Nucleated RBC Absolute Count (auto) 0.11 0-0 K/uL Nucleated Red Blood Cells % 0.6 % Polychromasia 1+ Anisocytosis PRESENT Macrocytosis PRESENT Wallace-Deering Bodies 1+ Sodium Level 135 136-145 mmol/L Potassium Level 4.3 3.5-5.1 mmol/L Chloride Level 103 98-107 mmol/L Carbon Dioxide Level 24 21-32 mmol/L Anion Gap 8.0 13.0 16-25 mmol/L Blood Urea Nitrogen 20 7-18 mg/dl Creatinine 1.31 0.60-1.40 mg/dl Est Creatinine Clear Calc Drug Dose 42.4 ml/min Estimated GFR () 59.6 Estimated GFR (Non- 51.4 BUN/Creatinine Ratio 15.5 10-20 Random Glucose 167 70-99 mg/dl Calcium Level 8.7 8.5-10.1 mg/dl Total Creatine Kinase 54 39-308 U/L Creatine Kinase MB 3.2 0.5-3.6 ng/ml Creatine Kinase MB Ratio 5.9 0-3.0 Troponin I 0.760 0-0.045 ng/ml Pro-B-Type Natriuretic Peptide 1573 0-1800 pg/ml Arterial Blood pH 7.48 7.35-7.45 Arterial Blood Partial Pressure CO2 33 35-46 mmHg Arterial Blood Partial Pressure O2 109 80-95 mm/Hg Arterial Blood HCO3 24 19-24 mmol/L Arterial Blood Oxygen Saturation 97.8 90-95 % Arterial Blood Base Excess 1.2 -9-1.8 mEq/L Arterial Blood Gas Delivery 50% Lawson Test POS POS Bedside Lactic Acid Venous 1.58 0.90-1.70 mmol/L Bedside Hemoglobin 12.2 14.0-18.0 g/dl Bedside Hematocrit 36 42-52 % Bedside Sodium 135 135-144 mEq/L Bedside Potassium 4.4 3.3-5.0 mEq/L Bedside Chloride 104 101-112 mEq/L Bedside Total CO2 23 24-31 mEq/l Bedside Blood Urea Nitrogen 20 7-18 mg/dl Bedside Creatinine 1.2 0.6-1.3 mg/dl Bedside Glucose (other) 177 70-99 mg/dl Bedside Ionized Calcium (Alyssa) 0.91 1.12-1.32 mmol/l Test 3/23/18 18:46 01/01/18 22:16 01/01/18 23:39 01/02/18 00:53 Range/Units Prothrombin Time 12.9 9.0-12.0 SECONDS Prothromb Time International Ratio 1.2 0.9-1.1 Activated Partial Thromboplast Time 23.8 150.8 21.0-31.0 SECONDS Partial Thromboplastin Ratio 0.9 5.8 Hemoglobin 9.7 14.0-18.0 g/dL Hematocrit 29.7 42-52 % Bedside Glucose 131 70-99 mg/dl Test 01/02/18 03:00 01/02/18 05:54 01/02/18 08:52 01/02/18 10:49 Range/Units Activated Partial Thromboplast Time 61.6 56.7 21.0-31.0 SECONDS Partial Thromboplastin Ratio 2.4 2.2 Sodium Level 137 136-145 mmol/L Potassium Level 3.6 3.5-5.1 mmol/L Chloride Level 105 98-107 mmol/L Carbon Dioxide Level 25 21-32 mmol/L Anion Gap 7.0 3-11 mmol/L Blood Urea Nitrogen 17 7-18 mg/dl Creatinine 1.19 0.60-1.40 mg/dl Est Creatinine Clear Calc Drug Dose 46.1 ml/min Estimated GFR () 66.9 Estimated GFR (Non- 57.8 BUN/Creatinine Ratio 14.7 10-20 Random Glucose 135 70-99 mg/dl Calcium Level 7.7 8.5-10.1 mg/dl Phosphorus Level 2.8 2.5-4.9 mg/dl Magnesium Level 2.0 1.8-2.4 mg/dl Total Bilirubin 0.5 0.2-1 mg/dl Direct Bilirubin 0.1 0-0.2 mg/dl Aspartate Amino Transf (AST/SGOT) 31 15-37 U/L Alanine Aminotransferase (ALT/SGPT) 16 12-78 U/L Alkaline Phosphatase 71 45-117 U/L Troponin I 2.540 0-0.045 ng/ml Total Protein 5.8 6.4-8.2 gm/dl Albumin 1.8 3.4-5.0 gm/dl White Blood Count 16.37 4.8-10.8 K/uL Red Blood Count 2.82 4.7-6.1 M/uL Hemoglobin 9.3 14.0-18.0 g/dL Hematocrit 28.9 42-52 % Mean Corpuscular Volume 102.5 80-100 fL Mean Corpuscular Hemoglobin 33.0 25-34 pg Mean Corpuscular Hemoglobin Concent 32.2 32-36 g/dl Platelet Count 432 130-400 K/uL Mean Platelet Volume 9.6 7.4-10.4 fL Neutrophils (%) (Auto) 48.8 % Lymphocytes (%) (Auto) 34.4 % Monocytes (%) (Auto) 12.1 % Eosinophils (%) (Auto) 3.4 % Basophils (%) (Auto) 0.5 % Neutrophils # (Auto) 8.00 1.4-6.5 K/uL Lymphocytes # (Auto) 5.63 1.2-3.4 K/uL Monocytes # (Auto) 1.98 0.11-0.59 K/uL Eosinophils # (Auto) 0.55 0-0.5 K/uL Basophils # (Auto) 0.08 0-0.2 K/uL RDW Standard Deviation 67.3 36.4-46.3 fL RDW Coefficient of Variation 18.6 11.5-14.5 % Immature Granulocyte % (Auto) 0.8 % Immature Granulocyte # (Auto) 0.13 0.00-0.02 K/uL Nucleated RBC Absolute Count (auto) 0.10 0-0 K/uL Nucleated Red Blood Cells % 0.6 % Polychromasia 1+ Target Cells 1+ Wallace-Deering Bodies OCCASIONAL Schistocytes OCCASIONAL Prothrombin Time 13.9 9.0-12.0 SECONDS Prothromb Time International Ratio 1.3 0.9-1.1 Estimated Average Glucose 200 mg/dl Hemoglobin A1c 8.6 4.5-5.6 % Procalcitonin 0.23 0-0.5 ng/ml Bedside Glucose 123 153 70-99 mg/dl Microbiology Results 01/01/18 Blood Culture, Received Pending 01/01/18 Blood Culture, Received Pending
[2018-01-02] MEDS: INSULIN ASPART 100 UNITS/ML 3 ML PEN SC SCH ×3 (12:14→20:47)
--- NOTE | 2018-01-02 12:14 | CARDIOLOGY CONSULTATION ---
DATE OF CONSULTATION: 01/02/2018 REFERRING DIAGNOSES: Elevated troponin, acute respiratory distress, acute pulmonary emboli. HISTORY OF PRESENT ILLNESS: The patient is a complex 77-year-old male whose history is notable for; 1. 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 2. Chronic renal insufficiency stage III. 3. Hypertension. 4. Atherosclerotic peripheral vascular disease with noted renal artery stenosis and carotid artery stenosis by history. 5. Hospitalization at [facility] with lower GI bleeding pattern on 12/21/2017. 6. Hospitalization at [facility] Transfer 10/30/2017 for acute hyperglycemia secondary to steroid usage. The patient presents on this admission noting per records and discussion, acute respiratory distress approximately 1 day prior to presentation with acute decline resulting in ER visit with marked hypoxia noted. He was begun on oxygen and BiPAP therapy, evaluation demonstrated elevated white cell count as well as a CT scan consistent with new right lower lobe pulmonary embolus with moderate clot. The patient's current laboratory studies since admission have demonstrated elevated troponin. He is referred now for further evaluation. He denies any prior history of cardiac disease. Notes no history of rheumatic fever, scarlet fever, renal or carotid disease that he is aware of. Notes no recent fevers or chills. Hospitalizations as noted recently with GI bleeding as well as in October with hyperglycemia observed. He continues to use oxygen at home. He is very sedentary with limitations due to marked dyspnea. Notes no current chest pain. Notes no recent tachypalpitations. Denies syncope or near syncope. Weight has been stable. He has had no further GI bleeding since hospitalization. ALLERGIES: LISTED LISINOPRIL. MEDICATIONS: Prior to hospitalization are albuterol nebulizer, torsemide 10 mg p.o. every day, NovoLog insulin, Protonix 40 mg p.o. every day, pravastatin 80 mg p.o. every day, lorazepam p.r.n., oxygen 2 liters nasal cannula, carvedilol 12.5 mg twice per day, flutter valve, aspirin 81 mg per day, multivitamin per day, Catapres 0.1 mg b.i.d. 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 FAMILY HISTORY: Not notable specifically for pulmonary disease. Mother had a history of myocardial infarction at age 74. SOCIAL HISTORY: The patient is a nonsmoker since 1996, uses no significant alcoholic beverages. PHYSICAL EXAMINATION: GENERAL: The patient appears acutely ill, currently on BiPAP in the intensive care unit. He is conversant; however, unable to answer questions. VITAL SIGNS: Reveal a heart rate of 86, blood pressure 132/77, O2 saturations 96% on BiPAP. HEENT: Normocephalic and atraumatic. NECK: Thin. There is no distinct jugular venous distention. There is no audible carotid bruits, though examination limited by BiPAP presence. LUNGS: Reveal scattered crackles. CARDIOVASCULAR: Regular with forceful apical impulse, and distant heart sounds. There is no S3 gallop. ABDOMEN: Soft, nontender. There is no palpable hepatosplenomegaly. There is no distinct hepatojugular reflux. EXTREMITIES: Without cyanosis or clubbing. There is no peripheral edema. There are intact distal pulses at 2+/4. LABORATORY DATA: Laboratory studies, white cell count this morning is 16.3, hemoglobin is 9.3, platelet count is 432,000. Sodium is 137, potassium 3.6, chloride is 105, bicarbonate is 25, BUN 17, creatinine is 1.19, troponin initiation was 0 on presentation, was 0.7 and repeat was 2.5. EKG demonstrates sinus tachycardia with voltage criteria for left ventricular hypertrophy, nonspecific ST flattening on initial presentation, repeat EKG serially this morning demonstrates similar findings with left anterior fascicular block pattern, no acute ST elevation, though there is biphasic T waves in the anterior leads. Echocardiogram preliminary review demonstrates left ventricular hypertrophy with a very small left ventricular cavity size and hyperdynamic function. There is a strain pattern to the interventricular septum with dilated right ventricle and mild pulmonary hypertension. There is mild aortic sclerosis with no significant valvular disease. Formal review is pending. Chest x-ray reveals diffuse interstitial changes, possible infiltrate left base. IMPRESSION: A 77-year-old male with complex history of chronic interstitial lung disease, usual interstitial pneumonia type, who presents now with acute respiratory failure with diagnostic studies reflecting acute pulmonary embolus. Troponins are elevated, likely secondary to strain of acute illness and pulmonary emboli. EKG and echocardiogram did not demonstrate acute changes to suggest ischemia, though patient is at risk with underlying medical problems including documented vascular disease. RECOMMENDATIONS: Anticoagulation has been ordered as well as steroids augmentation. We would continue carvedilol as ordered. We will follow patient in the hospital and recent GI bleed raises concerns regarding chronic anticoagulation, though certainly indicated in this patient with interstitial lung disease and documented pulmonary emboli.
--- NOTE | 2018-01-02 13:02 | Critical Care Progress Note ---
Critical Care Progress Note Date of Service Jan 02, 2018. Attending Dr. Amanda Parikh Due to acute respiratory failure, the patient was admitted last night, the patient did have multifactorial cause for his dyspnea including pulmonary fibrosis, pulmonary embolism, and acute exacerbation of pulmonary fibrosis. Overnight the patient was managed with the BiPAP, his O2 saturation has improved , the patient continued to do better. He did not show any signs of hemoptysis, cough, chest pain, abdominal pain, heartburn, hematochezia or hematemesis. He was started on heparin drip and so far tolerated very well. Recently the patient has GI bleeding and discharge from the hospital 4 days ago with that diagnosis. No recurrence so far. His hematocrit has been stable. Objective Physical exam today January 02, 2018, revealed vital signs are stable with O2 sat of 95% on 40% via BiPAP, no JVP, the patient is answering questions appropriately, S1-S2 regular rate and rhythm, bilateral crackles bilaterally. Abdomen is benign trace edema in the periphery. Neurologically he is intact. His laboratory also reviewed including ABG CBC and BMP personally. Chest x-ray and CAT scan also were reviewed which showed honeycombing mainly at the dorsum of the lung. The radiology report did not support the diagnosis of UIP, disagree. Assessment & Plan 1. 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 Currently in exacerbation. 2. Acute pulmonary embolism, in the subsegmental area bilaterally. The patient does have RV to LV ratio above them 0.9 and positive troponin, however, the patient is not a candidate for Ekos catheter thrombolyzes due to recent GI bleeding 4 days ago. 3. Non-ST elevation ND, etiology can be primary or secondary event. The findings on the CAT scan with hazy groundglass opacity can represent also pulmonary edema. 4. I doubt infectious process in this patient although has been treated with antibiotics empirically. 5. Acute respiratory failure, hypoxic mainly, secondary to the above. 6. Diabetes. 7. Peripheral arterial disease with renal artery stenosis and carotid stenosis. Plan: 1. Continue with heparin drip and follow PTT. 2. Echocardiogram to evaluate his cardiac status. 3. Cardiology consult, appreciate Dr. Nur evaluating the patient. 4. I will change the patient to heated high flow oxygen from BiPAP. 5. Currently the patient treated with Vanco and imipenem for possible healthcare acquired pneumonia, I doubt it. We will continue the antibiotics and then stop them after 72 hours if there is no evidence of infectious process. 6. Stop Levaquin. 7. Start the patient on high dose of steroids. The patient is concerned about his glucose being poorly controlled and we will monitor closely. The only treatment available for acute exacerbation of pulmonary fibrosis would be systemic steroids. 8. Troponin has risen to 2.5, cardiology is following. Patient is already on heparin. I will hold off on aspirin at the moment given recent GI bleeding and prolonged effect of aspirin in case of recurrence. 9. Continue with carvedilol. 10. Decrease FiO2 as tolerated to keep O2 sat above than 88%. 11. Start oral diet with heart healthy and diabetic diet. 12. Discussed in details with the patient, with the staff, critical care time spent with the patient was 45 minutes. Data Medications: Current Inpatient Medications Medications (Trade) Dose Ordered Sig/Aure Route Start Time Stop Time Status Last Admin Dose Admin Ioversol (Optiray 320) 111 ml UD PRN IV 01/01/18 17:30 01/05/18 17:29 Levalbuterol (Xopenex 1.25MG/ 0.5ML Neb) 1.25 mg Q4R INH 01/02/18 00:00 02/01/18 00:00 01/02/18 11:03 1.25 MG Ipratropium [place] (Atrovent 0.02% 0.5MG/2.5ML Neb) 0.5 mg Q4R INH 01/02/18 00:00 02/01/18 00:00 01/02/18 11:03 0.5 MG Nitroglycerin (Nitrostat Tab) 0.4 mg UD PRN SL 01/01/18 20:00 01/31/18 19:59 Ondansetron HCl (Zofran Inj) 4 mg Q6H PRN IV 01/01/18 20:00 01/31/18 19:59 Pantoprazole Sodium 40 mg/ Syringe 10 ml @ 5 mls/min DAILY IV 01/02/18 09:00 02/01/18 08:59 01/02/18 09:16 5 MLS/MIN Miscellaneous Information (Icu Protocol For Hyperglycemia) 1 ea PRN PRN N/A 01/01/18 20:00 01/03/18 19:59 Carvedilol (Coreg Tab) 12.5 mg BID PO 01/02/18 09:00 02/01/18 08:59 01/02/18 09:17 12.5 MG Pravastatin Sodium (Pravachol Tab) 80 mg DAILY PO 01/02/18 09:00 02/01/18 08:59 01/02/18 09:16 80 MG Glucose (Glucose 40% Gel) 15-30 GRAMS 15 GRAMS... UD PRN PO 01/01/18 20:00 01/31/18 19:59 Glucose (Glucose Chew Tab) 4-8 Tablets 4 Tabl... UD PRN PO 01/01/18 20:00 01/31/18 19:59 Dextrose (Dextrose 50% 50ML Syringe) 25-50ML OF 50% DW IV FOR... UD PRN IV 01/01/18 20:00 01/31/18 19:59 Glucagon (Glucagon Inj) 1 mg UD PRN SQ 01/01/18 20:00 01/31/18 19:59 Miscellaneous Information (Consult Glycemic Management Pharmacy) 1 ea UD PRN N/A 01/01/18 20:15 01/31/18 20:14 Vancomycin HCl 1000 mg/Sodium Chloride 270 ml @ 125 mls/hr Q18H IV 01/02/18 16:00 01/09/18 15:59 Miscellaneous Information (Consult) 1 ea UD PRN N/A 01/01/18 20:15 01/31/18 20:14 Heparin Sodium/ Dextrose 500 ml @ 20 mls/hr Q24H IV 01/01/18 21:45 01/31/18 21:44 01/01/18 21:50 24 MLS/HR Parenteral Electrolyte Solution 1,000 ml @ 50 mls/hr Q20H IV 01/01/18 23:45 01/31/18 23:44 01/02/18 02:54 50 MLS/HR Imipenem/ Cilastatin Sodium (Consult) 1 ea UD PRN N/A 01/02/18 02:45 02/01/18 02:44 Imipenem/ Cilastatin Sodium 300 mg/Dextrose 106 ml @ 106 mls/hr Q6H IV 01/02/18 09:00 01/09/18 08:59 01/02/18 09:16 106 MLS/HR Methylprednisolone Sodium Succinate 40 mg/Syringe 0.64 ml @ 1.5 mls/min Q6H IV 01/02/18 10:00 02/01/18 09:59 01/02/18 10:50 1.5 MLS/MIN Insulin Glargine (Lantus Solostar Pen) SEE PROTOCOL TEXT BID SC 01/02/18 21:00 02/01/18 20:59 Insulin Aspart (novoLOG ASPART) SLIDING SCALE ACHS SC 01/02/18 11:00 02/01/18 07:29 Vital Signs: Date Time Temp Pulse Resp B/P (MAP) Pulse Ox O2 Delivery O2 Flow Rate FiO2 01/02/18 12:01 36.9 86 20 100/66 (77) 90 High Flow Oxygen 40 01/02/18 12:00 High Flow Oxygen 40 01/02/18 11:06 82 28 96 Nasal Cannula 50.0 40 01/02/18 10:01 90 18 116/71 (86) 89 High Flow Oxygen 40 01/02/18 09:01 86 30 132/77 (95) 96 BiPAP 30 01/02/18 08:01 36.5 89 23 137/86 (103) 94 BiPAP 30 01/02/18 08:00 BiPAP 30 01/02/18 07:43 79 24 100 BiPAP/CPAP 50 01/02/18 07:39 79 99 50 01/02/18 07:01 79 26 122/78 (93) 100 BiPAP 50 01/02/18 06:01 79 25 121/69 (86) 99 BiPAP 50 01/02/18 05:02 75 100 30 01/02/18 05:01 72 31 129/76 (93) 100 01/02/18 04:01 36.9 83 29 137/75 (95) 99 BiPAP 50 01/02/18 04:00 BiPAP 50 01/02/18 03:24 88 33 100 BiPAP/CPAP 30 01/02/18 03:24 88 100 30 01/02/18 03:01 86 34 120/65 (83) 94 01/02/18 02:01 86 30 114/66 (82) 94 BiPAP 50 01/02/18 01:01 78 31 115/66 (82) 94 01/02/18 00:01 37.2 87 30 107/73 (84) 93 BiPAP 50 01/01/18 23:59 BiPAP 50 01/01/18 23:11 114 97 40 3/23/18 23:11 88 25 97 BiPAP/CPAP 40 01/01/18 23:01 88 33 116/71 (86) 96 01/01/18 22:27 40 01/01/18 22:00 93 26 104/65 (78) 95 BiPAP 50 01/01/18 21:41 105 91 50 01/01/18 21:28 37.2 92 26 106/64 94 BiPAP 50 01/01/18 21:00 100 18 96/60 98 01/01/18 20:30 100 18 96/60 98 Room Air 01/01/18 18:30 115 30 102/63 99 BiPAP 50 01/01/18 16:42 115 01/01/18 16:24 99 BiPAP 50 01/01/18 16:20 116 42 125/86 100 BiPAP 50 01/01/18 16:05 114 44 100 BiPAP/CPAP 50 01/01/18 16:05 114 100 50 01/01/18 15:55 37.3 115 48 124/84 66 Room Air 01/01/18 15:55 66 Room Air Laboratory Results: Last 24 Hours Test 01/01/18 16:19 01/01/18 16:38 01/01/18 16:45 01/01/18 16:49 White Blood Count 17.41 K/uL Red Blood Count 3.17 M/uL Hemoglobin 10.7 g/dL Hematocrit 32.4 % Mean Corpuscular Volume 102.2 fL Mean Corpuscular Hemoglobin 33.8 pg Mean Corpuscular Hemoglobin Concent 33.0 g/dl Platelet Count 498 K/uL Mean Platelet Volume 9.9 fL Neutrophils (%) (Auto) 53.1 % Lymphocytes (%) (Auto) 32.0 % Monocytes (%) (Auto) 11.1 % Eosinophils (%) (Auto) 2.1 % Basophils (%) (Auto) 0.5 % Neutrophils # (Auto) 9.25 K/uL Lymphocytes # (Auto) 5.57 K/uL Monocytes # (Auto) 1.93 K/uL Eosinophils # (Auto) 0.36 K/uL Basophils # (Auto) 0.09 K/uL RDW Standard Deviation 67.6 fL RDW Coefficient of Variation 19.0 % Immature Granulocyte % (Auto) 1.2 % Immature Granulocyte # (Auto) 0.21 K/uL Nucleated RBC Absolute Count (auto) 0.11 K/uL Nucleated Red Blood Cells % 0.6 % Polychromasia 1+ Anisocytosis PRESENT Macrocytosis PRESENT [place] Bodies 1+ Sodium Level 135 mmol/L Potassium Level 4.3 mmol/L Chloride Level 103 mmol/L Carbon Dioxide Level 24 mmol/L Anion Gap 8.0 mmol/L 13.0 mmol/L Blood Urea Nitrogen 20 mg/dl Creatinine 1.31 mg/dl Est Creatinine Clear Calc Drug Dose 42.4 ml/min Estimated GFR () 59.6 Estimated GFR (Non- 51.4 BUN/Creatinine Ratio 15.5 Random Glucose 167 mg/dl Calcium Level 8.7 mg/dl Total Creatine Kinase 54 U/L Creatine Kinase MB 3.2 ng/ml Creatine Kinase MB Ratio 5.9 Troponin I 0.760 ng/ml Pro-B-Type Natriuretic Peptide 1573 pg/ml Arterial Blood pH 7.48 Arterial Blood Partial Pressure CO2 33 mmHg Arterial Blood Partial Pressure O2 109 mm/Hg Arterial Blood HCO3 24 mmol/L Arterial Blood Oxygen Saturation 97.8 % Arterial Blood Base Excess 1.2 mEq/L Arterial Blood Gas Delivery 50% Lawson Test POS Bedside Lactic Acid Venous 1.58 mmol/L Bedside Hemoglobin 12.2 g/dl Bedside Hematocrit 36 % Bedside Sodium 135 mEq/L Bedside Potassium 4.4 mEq/L Bedside Chloride 104 mEq/L Bedside Total CO2 23 mEq/l Bedside Blood Urea Nitrogen 20 mg/dl Bedside Creatinine 1.2 mg/dl Bedside Glucose (other) 177 mg/dl Bedside Ionized Calcium (Alyssa) 0.91 mmol/l Test 01/01/18 18:46 01/01/18 22:16 01/01/18 23:39 01/02/18 00:53 Prothrombin Time 12.9 SECONDS Prothromb Time International Ratio 1.2 Activated Partial Thromboplast Time 23.8 SECONDS 150.8 SECONDS Partial Thromboplastin Ratio 0.9 5.8 Hemoglobin 9.7 g/dL Hematocrit 29.7 % Bedside Glucose 131 mg/dl Test 01/02/18 03:00 01/02/18 05:54 01/02/18 08:52 01/02/18 10:49 Activated Partial Thromboplast Time 61.6 SECONDS 56.7 SECONDS Partial Thromboplastin Ratio 2.4 2.2 Sodium Level 137 mmol/L Potassium Level 3.6 mmol/L Chloride Level 105 mmol/L Carbon Dioxide Level 25 mmol/L Anion Gap 7.0 mmol/L Blood Urea Nitrogen 17 mg/dl Creatinine 1.19 mg/dl Est Creatinine Clear Calc Drug Dose 46.1 ml/min Estimated GFR () 66.9 Estimated GFR (Non- 57.8 BUN/Creatinine Ratio 14.7 Random Glucose 135 mg/dl Calcium Level 7.7 mg/dl Phosphorus Level 2.8 mg/dl Magnesium Level 2.0 mg/dl Total Bilirubin 0.5 mg/dl Direct Bilirubin 0.1 mg/dl Aspartate Amino Transf (AST/SGOT) 31 U/L Alanine Aminotransferase (ALT/SGPT) 16 U/L Alkaline Phosphatase 71 U/L Troponin I 2.540 ng/ml Total Protein 5.8 gm/dl Albumin 1.8 gm/dl White Blood Count 16.37 K/uL Red Blood Count 2.82 M/uL Hemoglobin 9.3 g/dL Hematocrit 28.9 % Mean Corpuscular Volume 102.5 fL Mean Corpuscular Hemoglobin 33.0 pg Mean Corpuscular Hemoglobin Concent 32.2 g/dl Platelet Count 432 K/uL Mean Platelet Volume 9.6 fL Neutrophils (%) (Auto) 48.8 % Lymphocytes (%) (Auto) 34.4 % Monocytes (%) (Auto) 12.1 % Eosinophils (%) (Auto) 3.4 % Basophils (%) (Auto) 0.5 % Neutrophils # (Auto) 8.00 K/uL Lymphocytes # (Auto) 5.63 K/uL Monocytes # (Auto) 1.98 K/uL Eosinophils # (Auto) 0.55 K/uL Basophils # (Auto) 0.08 K/uL RDW Standard Deviation 67.3 fL RDW Coefficient of Variation 18.6 % Immature Granulocyte % (Auto) 0.8 % Immature Granulocyte # (Auto) 0.13 K/uL Nucleated RBC Absolute Count (auto) 0.10 K/uL Nucleated Red Blood Cells % 0.6 % Polychromasia 1+ Target Cells 1+ [place] Bodies OCCASIONAL Schistocytes OCCASIONAL Prothrombin Time 13.9 SECONDS Prothromb Time International Ratio 1.3 Estimated Average Glucose 200 mg/dl Hemoglobin A1c 8.6 % Procalcitonin 0.23 ng/ml Bedside Glucose 123 mg/dl 153 mg/dl
--- NOTE | 2018-01-02 14:00 | ECHOCARDIOGRAM REPORT ---
*NOTICE TO RECEIVING [employer] This information is strictly Confidential and protected under [place] law. [place] law prohibits you from making any further disclosure of this information unless further disclosure is expressly permitted by the written consent of the person to whom it pertains or is authorized by law. A general authorization for the release of medical or other information is not sufficient for this purpose. Hospital accepts no responsibility if the information is made available to any other person, INCLUDING THE PATIENT. Interpretation Summary * Name: NONI PINO Study Date: 01/02/2018 08:17 AM BP: 121/69 mmHg * Patient Location: [facility] HR: 84 * : 1940 (M/d/yyyy) Gender: Male Height: 63 in * Age: 77 yrs Ethnicity: [place] Weight: 173 lb * Ordering Physician: Dulce Maria Lopez * Referring Physician: Self, Referred * Performed By: Rocky Pak RDCS * * Reason For Study: Pulmonary embolism * BSA: 1.8 m2 * -- Conclusions -- * The left ventricle is normal in size. * There is moderate concentric left ventricular hypertrophy. * Left ventricular systolic function is normal. * Ejection Fraction = 60-65%. * The right ventricle is mild to moderately dilated. * There is mild right ventricular hypertrophy. * The right ventricular systolic function is moderately reduced. * There is moderate tricuspid regurgitation. Procedure Details * A complete two-dimensional transthoracic echocardiogram was performed (2D, M-mode, Doppler and color flow Doppler). * The study was technically difficult, but visualization was adequate with the administration of Definity ultrasound contrast. * A contrast injection of Definity was performed to improve assessment of LV function. * Contrast was injected into an intravenous site in the right arm. * One vial of Definity ultrasound contrast was diluted in normal saline to a total volume of 10 ml. A total of '2' ml of solution was administered during imaging. * Lot # [id number] of Definity utilized for procedure. * Expiration date . * The attending nurse who injected the contrast agent was NORMA Alvarado. Left Ventricle * The left ventricle is normal in size. * There is moderate concentric left ventricular hypertrophy. * Left ventricular systolic function is normal. * Ejection Fraction = 60-65%. * The left ventricular wall motion is normal. Right Ventricle * The right ventricle is mild to moderately dilated. * There is mild right ventricular hypertrophy. * The right ventricular systolic function is moderately reduced. Atria * The left atrium is mildly dilated. * Right atrial size is normal. * No ASD detected; PFO is not assessed. Mitral Valve * The mitral valve anatomy is normal. * There is no mitral valve stenosis. * There is trace mitral regurgitation. Tricuspid Valve * The tricuspid valve anatomy is normal. * There is no tricuspid stenosis. * There is moderate tricuspid regurgitation. * Right ventricular systolic pressure is elevated at 40-50mmHg. Aortic Valve * The aortic valve is trileaflet. * Aortic valve sclerosis mild, without significant aortic valvular stenosis. * No aortic regurgitation is present. Pulmonic Valve * The pulmonic valve is not well visualized. Great Vessels * The aortic root is normal size. Pericardium/Pleural * There is no pericardial effusion. Great Vessels * Normal inferior vena cava diameter and respiratory variation suggests normal central venous pressure. MMode 2D Measurements and Calculations IVSd 1.2 cm IVSs 1.4 cm LVIDd 3.7 cm LVIDs 2.4 cm LVPWd 1.2 cm LVPWs 1.5 cm IVS/LVPW 1.0 FS 34.7 % EDV(Teich) 59.0 ml ESV(Teich) 20.8 ml EF(Teich) 64.7 % EDV(cubed) 51.6 ml ESV(cubed) 14.4 ml EF(cubed) 72.2 % % IVS thick 23.5 % % LVPW thick 30.8 % LV mass(C)d 143.5 grams LV mass(C)dI 78.9 grams/m\S\2 LV mass(C)s 120.6 grams LV mass(C)sI 66.3 grams/m\S\2 SV(Teich) 38.2 ml SI(Teich) 21.0 ml/m\S\2 SV(cubed) 37.2 ml SI(cubed) 20.5 ml/m\S\2 EPSS 0.35 cm Ao root diam 2.9 cm Ao root area 6.6 cm\S\2 ACS 1.6 cm LA dimension 4.3 cm asc Aorta Diam 3.4 cm LA/Ao 1.5 LVOT diam 2.0 cm LVOT area 3.2 cm\S\2 LVAd ap4 22.9 cm\S\2 LVLd ap4 7.3 cm EDV(MOD-sp4) 59.2 ml EDV(sp4-el) 61.4 ml LVAs ap4 15.9 cm\S\2 LVLs ap4 7.6 cm ESV(MOD-sp4) 32.3 ml ESV(sp4-el) 28.3 ml EF(MOD-sp4) 45.6 % EF(sp4-el) 53.9 % LVAd ap2 20.1 cm\S\2 LVLd ap2 6.6 cm EDV(MOD-sp2) 49.6 ml EDV(sp2-el) 52.4 ml LVAs ap2 13.2 cm\S\2 LVLs ap2 6.1 cm ESV(MOD-sp2) 23.2 ml ESV(sp2-el) 24.0 ml EF(MOD-sp2) 53.3 % EF(sp2-el) 54.1 % LVLd %diff -10.70 % EDV(MOD-bp) 57.2 ml LVLs %diff -23.56 % ESV(MOD-bp) 27.5 ml EF(MOD-bp) 52.0 % SV(MOD-sp4) 27.0 ml SI(MOD-sp4) 14.8 ml/m\S\2 SV(MOD-sp2) 26.4 ml SI(MOD-sp2) 14.5 ml/m\S\2 SV(MOD-bp) 29.7 ml SI(MOD-bp) 16.3 ml/m\S\2 SV(sp4-el) 33.1 ml SI(sp4-el) 18.2 ml/m\S\2 SV(sp2-el) 28.4 ml SI(sp2-el) 15.6 ml/m\S\2 Doppler Measurements and Calculations MV E max dia 60.4 cm/sec MV A max dia 100.1 cm/sec MV E/A 0.60 MV dec time 0.18 sec Ao V2 max 169.3 cm/sec Ao max PG 11.5 mmHg Ao max PG (full) 8.4 mmHg ANIKA(V,A) 1.6 cm\S\2 ANIKA(V,D) 1.6 cm\S\2 LV V1 max PG 3.0 mmHg LV V1 max 86.9 cm/sec TR max dia 326.1 cm/sec
[2018-01-02 14:30] LABS: HEMOGLOBIN 9.7 g/dL (14.0-18.0)
[2018-01-02] MEDS: VANCOMYCIN IV 1,000 MG in SODIUM CHLORIDE 0.9% 250ML 250 ML IV SCH (16:35)
[2018-01-02] MEDS: HEPARIN 25,000 UNIT/500ML D5W 500 ML IV SCH (19:55)
[2018-01-02] MEDS: INSULIN GLARGINE SOLOSTAR 100 UNITS/ML 3 ML PEN SC SCH (20:46)
--- NOTE | 2018-01-02 21:21 | Critical Care Progress Note ---
Critical Care Progress Note Date of Service Jan 02, 2018. Critical Care Progress Note The patient had an episode where his oxygen saturations were maintained in the mid 70s. He was moderately tachypneic during this episode. I was called to reevaluate the patient. At this point, he was on high flow with sustained saturations and good waveforms. At this point, the patient was placed on his BiPAP at 12/5 and 60% FiO2. Respiratory therapy was contacted and an emergent nebulizer was provided. Patient slowly improved, and was essentially back to baseline. After approximately 1 hour, the patient did normalize and was placed back on high flow after his breathing had improved.
[2018-01-02 22:28] LABS: HEMATOCRIT 26.8 % (42-52); HEMOGLOBIN 8.8 g/dL (14.0-18.0)
[2018-01-03] VITALS (22 sets, daily range): BP systolic 95–128; BP diastolic 46–67; PULSE 60–89; TEMP 36.4–36.6; O2SAT 81–98
[2018-01-03] MEDS: IMIPENEM/CILASTATIN IV 300 MG in DEXTROSE 5% 100ML 100 ML IV SCH ×2 (03:23→08:17)
[2018-01-03] MEDS: METHYLPREDNISOLONE IV 40 MG in SYRINGE 0 ML IV SCH ×4 (03:23→21:08)
[2018-01-03] MEDS: INSULIN ASPART 100 UNITS/ML 3 ML PEN SC SCH ×7 (03:23→21:04)
[2018-01-03] MEDS: IPRATROPIUM BROMIDE NEB SOLN 0.02% 2.5 ML VIAL INH SCH ×6 (03:26→23:31)
[2018-01-03] MEDS: LEVALBUTEROL 1.25MG/0.5ML NEB INH SCH ×6 (03:27→23:31)
[2018-01-03 06:14] LABS: BASO % 0.1 %; BASO ABS # 0.01 K/uL (0-0.2); HEMATOCRIT 25.2 % (42-52); HEMOGLOBIN 8.3 g/dL (14.0-18.0); IG# 0.11 K/uL (0.00-0.02); LYMPH % 21.9 %; LYMPH ABS # 2.82 K/uL (1.2-3.4); MEAN CELL VOLUME 100.8 fL (80-100); MEAN CORPUSCULAR HEMOGLOBIN 33.2 pg (25-34); MEAN CORPUSCULAR HGB CONC 32.9 g/dl (32-36); MEAN PLATELET VOLUME 9.3 fL (7.4-10.4); MONO ABS # 0.52 K/uL (0.11-0.59); NEUT % 73.1 %; NEUT ABS # 9.43 K/uL (1.4-6.5); NUCLEATED RED BLOOD CELL ABS 0.06 K/uL (0-0); PLATELET COUNT 456 K/uL (130-400); RED CELL DISTRIBUTION WIDTH CV 18.1 % (11.5-14.5); RED CELL DISTRIBUTION WIDTH SD 65.4 fL (36.4-46.3); WHITE BLOOD COUNT 12.89 K/uL (4.8-10.8)
[2018-01-03 06:33] LABS: CALCIUM 7.7 mg/dl (8.5-10.1); CREATININE 0.88 mg/dl (0.60-1.40); POTASSIUM 3.6 mmol/L (3.5-5.1)
[2018-01-03 06:38] LABS: PHOSPHORUS 2.7 mg/dl (2.5-4.9)
[2018-01-03 06:47] LABS: PTT PATIENT 89.2 SECONDS (21.0-31.0)
--- NOTE | 2018-01-03 07:25 | DIAGNOSTIC IMAGING REPORT ---
CHEST ONE VIEW PORTABLE CLINICAL HISTORY: 77 years-old Male presenting with respiratory distress. TECHNIQUE: Portable upright AP view of the chest was obtained. COMPARISON: 01/02/2018. FINDINGS: Atherosclerosis of aortic arch. Cardiac silhouette enlarged. Persistent hazy and reticular opacities with a mid to basilar predominance. Mildly low lung volumes unchanged. Bronchial wall thickening and bronchiectasis suspected. No large pleural effusion or pneumothorax. Degenerative changes of the thoracic spine. IMPRESSION: 1. Hazy mid to basilar predominant opacities concerning for a focal infiltrate superimposed on chronic lung disease/fibrosis. This could represent multifocal pneumonia, pulmonary edema, or acute on chronic fibrotic changes. Electronically signed by: Justino Amezcua M.D. 01/03/2018 7:24 AM Dictated Date/Time: 01/03/2018 7:22 AM
[2018-01-03] MEDS: PANTOprazole INJ 40 MG in SYRINGE 0 ML IV SCH (08:17)
[2018-01-03] MEDS: CARVEDILOL 12.5 MG TAB PO SCH ×2 (08:18→20:54)
[2018-01-03] MEDS: PRAVASTATIN SOD 40 MG TAB PO SCH (08:18)
[2018-01-03] MEDS: INSULIN GLARGINE SOLOSTAR 100 UNITS/ML 3 ML PEN SC SCH ×2 (08:44→21:05)
--- NOTE | 2018-01-03 08:50 | Pharmacy Progress Note ---
Pharmacy Glycemic Short Note 2 Date of Service Jan 03, 2018. OUTPATIENT ANTIDIABETIC REGIMEN: * Novolog per sliding scale * A1c reduced from last admission just a few days ago, which was 10% on 12/27/17 Test 01/02/18 08:52 01/02/18 10:49 01/02/18 16:20 01/02/18 20:09 Bedside Glucose 123 mg/dl (70-99) 153 mg/dl (70-99) 190 mg/dl (70-99) 197 mg/dl (70-99) Test 01/03/18 00:10 01/03/18 03:20 01/03/18 05:55 01/03/18 06:19 Bedside Glucose 156 mg/dl (70-99) 142 mg/dl (70-99) 151 mg/dl (70-99) Random Glucose 138 mg/dl (70-99) ASSESSMENT: 01/03/18 * Mr. Pelaez received 36 units of insulin yesterday * Almost all BSGs within goal range for ICU patient * Causes of insulin resistance: * Remains on Solu-medrol 40 mg IV q6h * Abx for HAP * Heparin drip mixed in dextrose * AHA/Type 2 diabetes diet * Appears basal requirements are close to 28 units/day - will adjust scale so that 13 units given for BSG 110-180 * Postprandial BSG elevated yesterday - will tighten CR 01/02/18 * 77 y/o male admitted for acute on chronic resp failure and bilateral PE * He has a history of type 2 diabetes, A1c significantly uncontrolled when drawn a week ago but is fairly improved as of today. Previous notes from last admit report A1c related to prior steroid use? * Patient now in ICU and BSGs have been stable, without any insulin coverage needed, however, high dose steroids are being initiated * Will plan to utilize basal/bolus based on insulin calc estimates using weight/ stress of 2 * If this does not control BSGs, standard of care would be to utilize an insulin infusion PLAN FOR INPATIENT GLYCEMIC CONTROL: * Basal insulin - adjust scale slightly * Hold for BSG less than 110 * Lantus 13 units BID for BSG 110-180 * Lantus 19 units BID for BSG > 180 * Correctional Insulin with NOVOLOG per scale ACHS or Q6hrs while NPO * Goal Range: Low 120 mg/dL - High 160 mg/dL, to aim for BSGs between 140-180 * Correction Factor: 30 mg/dL/unit * TIGHTEN Nutritional / Prandial insulin per carb ratio of 1 unit per 7 grams CHO consumed PLAN FOR DISCHARGE: * A1c improved significantly from earlier in the month * Continue sliding scale Novolog with close monitoring of BSGs - if steroid- related, may only require this when taking steroids?
[2018-01-03] MEDS: VANCOMYCIN IV 1,000 MG in SODIUM CHLORIDE 0.9% 250ML 250 ML IV SCH (09:34)
--- NOTE | 2018-01-03 11:31 | Progress Note ---
Internal Med Progress Note Date of Service: Jan 03, 2018. Provider Documentation: SUBJECTIVE: The patient does seen and examined in ICU. He was admitted with acute respiratory failure secondary to pulmonary embolism with history of bilateral lung fibrosis. Noted to have community-acquired pneumonia on presentation as well. He feels a little better today and his saturation maintained with BiPAP at this time. Denies to any chest pain palpitation and does not have any nausea and/or vomiting 01/03 Much better today Denies any symptoms at rest OBJECTIVE: Vital Signs-as noted below Exam: General-minimal distressed at rest Eyes-normal ENT-normal Neck-supple Lungs-decreased breath sounds bilaterally with bibasilar crackles Heart-regular, no murmur appreciated Abdomen-benign, distended, soft, bowel sounds present Extremities-trace edema bilaterally Neuro-alert awake oriented 3, no focal neuro deficit appreciated Lab data as noted below' ASSESSMENT & PLAN: Hypoxemic respiratory failure: Acute on chronic hypoxemic respiratory failure, possible secondary to pulmonary emboli Patient has advanced interstitial lung disease on chronic oxygen 3 L via nasal cannula Complicated by CAP Patient is placed on BiPAP Discussed with patient and family okay for ventilation ventilator support Clinically much better this AM Appreciate Telephone Order Dispatcher input Tolerating NC Oxygen CAP CT chest with contrast: 1. Acute pulmonary embolus in segmental and subsegmental branches to the right lower lobe. No CT evidence of right heart strain. 2. Interval development of patchy groundglass opacities. This is concerning for either an acute infectious etiology or acute on chronic exacerbation of underlying fibrotic lung disease. 3. 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 No honeycombing to suggest a UIP pattern. 4. Suspected reactive mediastinal and right hilar lymphadenopathy, new from prior. 5. Bilateral nephrolithiasis. shows patchy groundglass opacities, possible infectious etiology Patient will be empirically treated with Levaquin (allergy to penicillin); Levaquin is stopped On IV vancomycin and Imipenem Blood culture-negative: Sputum culture ordered-pending Repeat CXR:IMPRESSION: 1. Hazy mid to basilar predominant opacities concerning for a focal infiltrate superimposed on chronic lung disease/fibrosis. This could represent multifocal pneumonia, pulmonary edema, or acute on chronic fibrotic changes. Clinically better Pulmonary emboli: Patient has been sedentary since discharge from hospital on December 28 Started on IV heparin weight-based protocol H&H will be monitored closely due to recent history of GI bleed Order for lower extremity Doppler to rule out DVT-NO DVT but has Superficial Thrombophlebitis will need to start Oral anticoagulation Recent GI bleed: Recent admission on 12/21 -12/28/2017: For possible acute diverticular bleeding Hemoglobin stable Monitor closely every 8 hours while on therapeutic anticoagulation Elevated troponin: Possible secondary to hypoxemia, respiratory distress Serial cardiac markers will be monitored Increasing serial Troponin-now decreasing Cardiology consulted -appreciate Input CKD stage III Renal function approximate baseline 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 Has been started on small dose of steroid Hypertension: Borderline hypotension systolic in low 100 Continue Coreg with holding parameters Hold clonidine CODE STATUS: Full code DVT prophylaxis: IV heparin weight-based protocol Disposition: Patient remains critically ill will be admitted to intensive care unit Case discussed with on-call nail puller Vital Signs: Date Time Temp Pulse Resp B/P (MAP) Pulse Ox O2 Delivery O2 Flow Rate FiO2 01/03/18 11:15 86 18 81 Nasal Cannula 4.0 01/03/18 10:00 85 29 101/46 (64) 96 Nasal Cannula 6.0 01/03/18 08:00 36.4 71 30 110/61 (77) 94 High Flow Oxygen 40.0 40 01/03/18 08:00 96 High Flow Oxygen 40.0 40 01/03/18 07:23 72 19 83 Nasal Cannula 30.0 40 01/03/18 06:01 60 22 104/55 (67) 94 01/03/18 05:01 64 24 110/67 (82) 96 01/03/18 04:01 62 30 105/59 (77) 94 01/03/18 04:00 36.4 01/03/18 04:00 97 High Flow Oxygen 30.0 40 01/03/18 03:27 63 19 97 Nasal Cannula 30.0 40 01/03/18 03:01 67 26 109/59 (77) 96 01/03/18 02:01 67 16 98/57 (70) 92 01/03/18 01:01 72 26 115/66 (83) 97 01/03/18 00:01 64 26 104/52 (68) 98 01/03/18 00:01 36.6 01/02/18 23:59 99 High Flow Oxygen 30.0 42 01/02/18 23:17 69 20 99 Nasal Cannula 30.0 40 01/02/18 23:01 77 29 101/66 (74) 94 01/02/18 22:01 66 27 118/66 (89) 99 01/02/18 21:01 78 26 136/82 (108) 95 01/02/18 20:01 76 27 121/70 (89) 97 01/02/18 20:00 98 BiPAP 60 01/02/18 19:53 70 98 60 01/02/18 19:51 70 29 98 BiPAP/CPAP 60 01/02/18 19:31 36.7 01/02/18 19:01 79 29 112/66 (81) 95 01/02/18 18:01 82 30 109/60 (76) 96 High Flow Oxygen 40 01/02/18 17:01 81 32 110/63 (79) 96 High Flow Oxygen 40 01/02/18 16:01 36.8 76 32 118/69 (85) 97 High Flow Oxygen 40 01/02/18 16:00 High Flow Oxygen 40 01/02/18 15:48 75 21 97 Nasal Cannula 40.0 40 01/02/18 15:01 76 26 123/72 (89) 88 High Flow Oxygen 40 01/02/18 14:01 77 27 129/80 (96) 97 High Flow Oxygen 40 01/02/18 13:01 72 28 111/68 (82) 98 High Flow Oxygen 40 01/02/18 12:01 36.9 86 20 100/66 (77) 90 High Flow Oxygen 40 01/02/18 12:00 High Flow Oxygen 40 Lab Results: Results Past 24 Hours Test 01/02/18 14:16 01/02/18 16:20 01/02/18 20:09 01/02/18 22:18 Range/Units Hemoglobin 9.7 8.8 14.0-18.0 g/dL Hematocrit 29.0 26.8 42-52 % Bedside Glucose 190 197 70-99 mg/dl Test 01/03/18 00:10 01/03/18 03:20 01/03/18 05:55 01/03/18 06:19 Range/Units Bedside Glucose 156 142 151 70-99 mg/dl White Blood Count 12.89 4.8-10.8 K/uL Red Blood Count 2.50 4.7-6.1 M/uL Hemoglobin 8.3 14.0-18.0 g/dL Hematocrit 25.2 42-52 % Mean Corpuscular Volume 100.8 80-100 fL Mean Corpuscular Hemoglobin 33.2 25-34 pg Mean Corpuscular Hemoglobin Concent 32.9 32-36 g/dl Platelet Count 456 130-400 K/uL Mean Platelet Volume 9.3 7.4-10.4 fL Neutrophils (%) (Auto) 73.1 % Lymphocytes (%) (Auto) 21.9 % Monocytes (%) (Auto) 4.0 % Eosinophils (%) (Auto) 0.0 % Basophils (%) (Auto) 0.1 % Neutrophils # (Auto) 9.43 1.4-6.5 K/uL Lymphocytes # (Auto) 2.82 1.2-3.4 K/uL Monocytes # (Auto) 0.52 0.11-0.59 K/uL Eosinophils # (Auto) 0.00 0-0.5 K/uL Basophils # (Auto) 0.01 0-0.2 K/uL RDW Standard Deviation 65.4 36.4-46.3 fL RDW Coefficient of Variation 18.1 11.5-14.5 % Immature Granulocyte % (Auto) 0.9 % Immature Granulocyte # (Auto) 0.11 0.00-0.02 K/uL Nucleated RBC Absolute Count (auto) 0.06 0-0 K/uL Nucleated Red Blood Cells % 0.5 % Polychromasia 1+ Anisocytosis PRESENT Activated Partial Thromboplast Time 89.2 21.0-31.0 SECONDS Partial Thromboplastin Ratio 3.4 Sodium Level 136 136-145 mmol/L Potassium Level 3.6 3.5-5.1 mmol/L Chloride Level 103 98-107 mmol/L Carbon Dioxide Level 25 21-32 mmol/L Anion Gap 8.0 3-11 mmol/L Blood Urea Nitrogen 15 7-18 mg/dl Creatinine 0.88 0.60-1.40 mg/dl Est Creatinine Clear Calc Drug Dose 62.5 ml/min Estimated GFR () 94.7 Estimated GFR (Non- 81.7 BUN/Creatinine Ratio 17.2 10-20 Random Glucose 138 70-99 mg/dl Calcium Level 7.7 8.5-10.1 mg/dl Phosphorus Level 2.7 2.5-4.9 mg/dl Magnesium Level 2.3 1.8-2.4 mg/dl Troponin I 0.837 0-0.045 ng/ml
--- NOTE | 2018-01-03 11:41 | CARDIOLOGY PROGRESS NOTE ---
DATE: 01/03/2018 CARDIOLOGY CONSULTATION FOLLOWUP NOTE REFERRING PHYSICIAN: Dr. Patel. HISTORY OF PRESENT ILLNESS AND SUBJECTIVE: The patient appears much more comfortable this morning, less breathless. Oxygen saturations were improved. Denies any chest pains. Notes no dizziness. Notes no tachypalpitations. He is appropriately anticoagulated. He has not noted any overt abrupt bleeding. Notes no melena, hematochezia, dysuria or hematuria. OBJECTIVE: VITAL SIGNS: Heart rate is 80 and blood pressure is 101/46. NECK: Thin. There is no distinct jugular venous distention. LUNGS: Revealed crackles bibasilar with diffusely diminished breath sounds. CARDIOVASCULAR: Regular. There is no S3 gallop. ABDOMEN: Soft, nontender, and nondistended. EXTREMITIES: Without cyanosis or clubbing. There is no peripheral edema. LABORATORY DATA: White cell count is 12.8 and hemoglobin is 8.3. Sodium is 136, potassium is 3.6, chloride is 103, bicarbonate is 25, BUN is 15, and creatinine 0.88. Troponin I is 0.837. EKG reveals sinus rhythm with minimal voltage criteria for left ventricular hypertrophy and T-wave inversion in inferior and anterolateral leads. IMPRESSION: Complex 77-year-old male admitted with acute pulmonary embolus superimposed on chronic interstitial lung disease with fibrosing interstitial pneumonitis. Laboratory studies and EKGs reflect non-ST segment elevation myocardial infarction in the setting of known history of peripheral vascular disease. RECOMMENDATIONS: Would continue carvedilol as ordered. I would maintain pravastatin at 80 mg per day. Treat underlying pulmonary issues. Agree with anticoagulation as ordered. May consider ischemic workup as course progresses; however, interventional goals will be limited. We will attempt to manage medically at least initially. We will follow patient in the hospital. YVONNE
--- NOTE | 2018-01-03 13:47 | Critical Care Progress Note ---
Critical Care Progress Note Date of Service Jan 03, 2018. Attending Dr. Amanda Parikh The patient remains with shortness of breath with exertion, he is becoming hypoxic with movement however less expected as part of the nature of his disease which is pulmonary fibrosis. No events overnight, he has been having occasional cough, no hemoptysis hematochezia melena or hematemesis. Objective Physical exam today January 02, 2018, revealed vital signs are stable with O2 sat of 95% on 40% via BiPAP, no JVP, the patient is answering questions appropriately, S1-S2 regular rate and rhythm, bilateral crackles bilaterally. Abdomen is benign trace edema in the periphery. Neurologically he is intact. His laboratory also reviewed including ABG CBC and BMP personally. Chest x-ray and CAT scan also were reviewed which showed honeycombing mainly at the dorsum of the lung. The radiology report did not support the diagnosis of UIP, disagree. Physical exam on January 03, 2018 revealed elderly gentleman, does not appear to be in any respiratory distress, he speaks in full sentences, O2 saturation is 91 % on nasal cannula, S1-S2 regular rate and rhythm, bilateral Velcro type crackles, abdomen is benign, no edema. No cyanosis in the periphery. His labs were reviewed as well. Assessment & Plan 1. 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 Currently in exacerbation. 2. Acute pulmonary embolism, in the subsegmental area bilaterally. The patient does have RV to LV ratio above them 0.9 and positive troponin, however, the patient is not a candidate for Ekos catheter thrombolyzes due to recent GI bleeding 4 days ago. 3. Non-ST elevation ID, etiology can be primary or secondary event. The findings on the CAT scan with hazy groundglass opacity can represent also pulmonary edema. 4. I doubt infectious process in this patient although has been treated with antibiotics empirically. 5. Acute respiratory failure, hypoxic mainly, secondary to the above. 6. Diabetes. 7. Peripheral arterial disease with renal artery stenosis and carotid stenosis. Plan: 1. Continue with heparin drip and follow PTT. I will start the patient on Pradaxa given the availability of antidote. In case it is needed. 2. Echocardiogram to evaluate his cardiac status. 3. Cardiology consult, appreciate Dr. Nur evaluating the patient. 4. I will change the patient to heated high flow oxygen from BiPAP. 5. Currently the patient treated with Vanco and imipenem for possible healthcare acquired pneumonia, I doubt it. We will continue the antibiotics and then stop them after 72 hours if there is no evidence of infectious process. 6. Stop Levaquin. 7. Start the patient on high dose of steroids. We will reduce the dose to 40 mg IV twice daily, afterwards the patient should go on prednisone 40 mg p.o. daily with taper by 10 mg every week. The taper for pulmonary fibrosis is very slow in increment. 8. Troponin has risen to 2.5, cardiology is following. Patient is already on heparin. I will hold off on aspirin at the moment given recent GI bleeding and prolonged effect of aspirin in case of recurrence. 9. Continue with carvedilol. 10. Decrease FiO2 as tolerated to keep O2 sat above than 85%. 11. Start oral diet with heart healthy and diabetic diet. 12. Discussed in details with the patient, with the staff, critical care time spent with the patient was 45 minutes. Data Medications: Current Inpatient Medications Medications (Trade) Dose Ordered Sig/Aure Route Start Time Stop Time Status Last Admin Dose Admin Ioversol (Optiray 320) 111 ml UD PRN IV 01/01/18 17:30 01/05/18 17:29 Levalbuterol (Xopenex 1.25MG/ 0.5ML Neb) 1.25 mg Q4R INH 01/02/18 00:00 02/01/18 00:00 01/03/18 11:13 1.25 MG Ipratropium [place] (Atrovent 0.02% 0.5MG/2.5ML Neb) 0.5 mg Q4R INH 01/02/18 00:00 02/01/18 00:00 01/03/18 11:13 0.5 MG Nitroglycerin (Nitrostat Tab) 0.4 mg UD PRN SL 01/01/18 20:00 01/31/18 19:59 Ondansetron HCl (Zofran Inj) 4 mg Q6H PRN IV 01/01/18 20:00 01/31/18 19:59 Pantoprazole Sodium 40 mg/ Syringe 10 ml @ 5 mls/min DAILY IV 01/02/18 09:00 02/01/18 08:59 01/03/18 08:17 5 MLS/MIN Miscellaneous Information (Icu Protocol For Hyperglycemia) 1 ea PRN PRN N/A 01/01/18 20:00 01/03/18 19:59 Carvedilol (Coreg Tab) 12.5 mg BID PO 01/02/18 09:00 02/01/18 08:59 01/03/18 08:18 12.5 MG Pravastatin Sodium (Pravachol Tab) 80 mg DAILY PO 01/02/18 09:00 02/01/18 08:59 01/03/18 08:18 80 MG Glucose (Glucose 40% Gel) 15-30 GRAMS 15 GRAMS... UD PRN PO 01/01/18 20:00 01/31/18 19:59 Glucose (Glucose Chew Tab) 4-8 Tablets 4 Tabl... UD PRN PO 01/01/18 20:00 01/31/18 19:59 Dextrose (Dextrose 50% 50ML Syringe) 25-50ML OF 50% DW IV FOR... UD PRN IV 01/01/18 20:00 01/31/18 19:59 Glucagon (Glucagon Inj) 1 mg UD PRN SQ 01/01/18 20:00 01/31/18 19:59 Miscellaneous Information (Consult Glycemic Management Pharmacy) 1 UD PRN N/A 01/01/18 20:15 01/31/18 20:14 Vancomycin HCl 1000 mg/Sodium Chloride 270 ml @ 125 mls/hr Q18H IV 01/02/18 16:00 01/09/18 15:59 01/03/18 09:34 125 MLS/HR Miscellaneous Information (Consult) 1 UD PRN N/A 01/01/18 20:15 01/31/18 20:14 Heparin Sodium/ Dextrose 500 ml @ 17 mls/hr Q24H IV 01/01/18 21:45 01/31/18 21:44 01/02/18 19:55 20 MLS/HR Imipenem/ Cilastatin Sodium (Consult) 1 UD PRN N/A 01/02/18 02:45 02/01/18 02:44 Methylprednisolone Sodium Succinate 40 mg/Syringe 0.64 ml @ 1.5 mls/min Q6H IV 01/02/18 10:00 02/01/18 09:59 01/03/18 09:34 1.5 MLS/MIN Insulin Glargine (Lantus Solostar Pen) SEE PROTOCOL TEXT BID SC 01/02/18 21:00 02/01/18 20:59 01/03/18 08:44 13 UNITS Insulin Aspart (novoLOG ASPART) SLIDING SCALE ACHS SC 01/02/18 11:00 02/01/18 07:29 01/03/18 12:23 5 UNITS Imipenem/ Cilastatin Sodium 400 mg/Dextrose 108 ml @ 106 mls/hr Q6H IV 01/03/18 15:00 01/10/18 14:59 Vital Signs: Date Time Temp Pulse Resp B/P (MAP) Pulse Ox O2 Delivery O2 Flow Rate FiO2 01/03/18 12:00 96 Nasal Cannula 01/03/18 11:15 86 18 81 Nasal Cannula 4.0 01/03/18 10:00 85 29 101/46 (64) 96 Nasal Cannula 6.0 01/03/18 08:00 36.4 71 30 110/61 (77) 94 High Flow Oxygen 40.0 40 01/03/18 08:00 96 High Flow Oxygen 40.0 40 01/03/18 07:23 72 19 83 Nasal Cannula 30.0 40 01/03/18 06:01 60 22 104/55 (67) 94 01/03/18 05:01 64 24 110/67 (82) 96 01/03/18 04:01 62 30 105/59 (77) 94 01/03/18 04:00 36.4 01/03/18 04:00 97 High Flow Oxygen 30.0 40 01/03/18 03:27 63 19 97 Nasal Cannula 30.0 40 01/03/18 03:01 67 26 109/59 (77) 96 01/03/18 02:01 67 16 98/57 (70) 92 01/03/18 01:01 72 26 115/66 (83) 97 01/03/18 00:01 64 26 104/52 (68) 98 01/03/18 00:01 36.6 01/02/18 23:59 99 High Flow Oxygen 30.0 42 01/02/18 23:17 69 20 99 Nasal Cannula 30.0 40 01/02/18 23:01 77 29 101/66 (74) 94 01/02/18 22:01 66 27 118/66 (89) 99 01/02/18 21:01 78 26 136/82 (108) 95 01/02/18 20:01 76 27 121/70 (89) 97 01/02/18 20:00 98 BiPAP 60 01/02/18 19:53 70 98 60 01/02/18 19:51 70 29 98 BiPAP/CPAP 60 01/02/18 19:31 36.7 01/02/18 19:01 79 29 112/66 (81) 95 01/02/18 18:01 82 30 109/60 (76) 96 High Flow Oxygen 40 01/02/18 17:01 81 32 110/63 (79) 96 High Flow Oxygen 40 01/02/18 16:01 36.8 76 32 118/69 (85) 97 High Flow Oxygen 40 01/02/18 16:00 High Flow Oxygen 40 01/02/18 15:48 75 21 97 Nasal Cannula 40.0 40 01/02/18 15:01 76 26 123/72 (89) 88 High Flow Oxygen 40 01/02/18 14:01 77 27 129/80 (96) 97 High Flow Oxygen 40 Laboratory Results: Last 24 Hours Test 01/02/18 14:16 01/02/18 16:20 01/02/18 20:09 01/02/18 22:18 Hemoglobin 9.7 g/dL 8.8 g/dL Hematocrit 29.0 % 26.8 % Bedside Glucose 190 mg/dl 197 mg/dl Test 01/03/18 00:10 01/03/18 03:20 01/03/18 05:55 01/03/18 06:19 Bedside Glucose 156 mg/dl 142 mg/dl 151 mg/dl White Blood Count 12.89 K/uL Red Blood Count 2.50 M/uL Hemoglobin 8.3 g/dL Hematocrit 25.2 % Mean Corpuscular Volume 100.8 fL Mean Corpuscular Hemoglobin 33.2 pg Mean Corpuscular Hemoglobin Concent 32.9 g/dl Platelet Count 456 K/uL Mean Platelet Volume 9.3 fL Neutrophils (%) (Auto) 73.1 % Lymphocytes (%) (Auto) 21.9 % Monocytes (%) (Auto) 4.0 % Eosinophils (%) (Auto) 0.0 % Basophils (%) (Auto) 0.1 % Neutrophils # (Auto) 9.43 K/uL Lymphocytes # (Auto) 2.82 K/uL Monocytes # (Auto) 0.52 K/uL Eosinophils # (Auto) 0.00 K/uL Basophils # (Auto) 0.01 K/uL RDW Standard Deviation 65.4 fL RDW Coefficient of Variation 18.1 % Immature Granulocyte % (Auto) 0.9 % Immature Granulocyte # (Auto) 0.11 K/uL Nucleated RBC Absolute Count (auto) 0.06 K/uL Nucleated Red Blood Cells % 0.5 % Polychromasia 1+ Anisocytosis PRESENT Activated Partial Thromboplast Time 89.2 SECONDS Partial Thromboplastin Ratio 3.4 Sodium Level 136 mmol/L Potassium Level 3.6 mmol/L Chloride Level 103 mmol/L Carbon Dioxide Level 25 mmol/L Anion Gap 8.0 mmol/L Blood Urea Nitrogen 15 mg/dl Creatinine 0.88 mg/dl Est Creatinine Clear Calc Drug Dose 62.5 ml/min Estimated GFR () 94.7 Estimated GFR (Non- 81.7 BUN/Creatinine Ratio 17.2 Random Glucose 138 mg/dl Calcium Level 7.7 mg/dl Phosphorus Level 2.7 mg/dl Magnesium Level 2.3 mg/dl Troponin I 0.837 ng/ml Test 01/03/18 11:32 01/03/18 13:00 Bedside Glucose 154 mg/dl
[2018-01-03 13:55] LABS: HEMATOCRIT 25.9 % (42-52); HEMOGLOBIN 8.6 g/dL (14.0-18.0)
[2018-01-03 14:13] LABS: PTT PATIENT 50.2 SECONDS (21.0-31.0)
[2018-01-03] MEDS: IMIPENEM/CILASTATIN IV 400 MG in DEXTROSE 5% 100ML 100 ML IV SCH ×2 (14:37→20:50)
[2018-01-03] MEDS: DABIGATRAN ELEXILATE 75 MG CAP PO SCH (20:55)
[2018-01-03] MEDS ORDERED: STOP HEPARIN DRIP ONE (21:00)
[2018-01-03] MEDS ORDERED: LEVOFLOXACIN / D5W 750 MG in PREMIXED IN D5W 150 ML IV SCH (22:00)
[2018-01-04] VITALS (14 sets, daily range): BP systolic 108–138; BP diastolic 59–79; PULSE 59–84; TEMP 36.4–36.9; O2SAT 76–97; Ht 160 cm; Wt 78.9 kg
--- NOTE | 2018-01-04 02:12 | Progress Note ---
Post ICU Progress Note Date & Time Jan 04, 2018 at 02:06 Vital Signs Vital Signs Past 12 Hours Date Time Temp Pulse Resp B/P (MAP) Pulse Ox O2 Delivery O2 Flow Rate FiO2 01/04/18 00:15 36.9 81 26 108/59 (75) 95 01/03/18 23:59 92 Nasal Cannula 6.0 01/03/18 23:32 71 22 90 Nasal Cannula 6.0 01/03/18 20:00 92 Nasal Cannula 6.0 01/03/18 19:28 36.6 80 24 104/61 (75) 93 Nasal Cannula 6.0 Humidified Air 01/03/18 19:09 70 20 92 Nasal Cannula 6.0 01/03/18 16:37 36.6 81 24 128/51 (76) 96 Nasal Cannula 4.0 01/03/18 16:00 Nasal Cannula 01/03/18 14:43 81 24 93 Nasal Cannula 6.0 Notes Mental Status: see Notes Nausea / Vomiting: adequately controlled Pain: adequately controlled Airway Patency, RR, SpO2: stable & adequate BP & HR: stable & adequate Patient is a 77-year-old male who was initially admitted to the ICU for acute on chronic respiratory failure with hypoxia likely secondary to acute RIGHT lower lobe pulmonary emboli in the setting of chronic pulmonary fibrosis. Initially, the patient required BiPAP for adequate ventilation and oxygenation. He was eventually weaned down to high flow. At this point, he is tolerating nasal cannula alone. The patient was placed on a heparin drip on presentation secondary to new PE and STEMI. With recent history of upper GI bleed, he was watched very closely. His H&H has remained stable throughout stay. He was downgraded today and reportedly has been improving each day. On evaluation, the patient is resting comfortably. He is sleeping. He is on nasal cannula only. Per nursing staff and reporting, the patient has been doing very well. Consider outpatient follow up in 1 to 2 weeks with: Pulmonology, Cardiology, Coagulation Clinic Repeat imaging needed: Repeat CTA in 3-6 months (per PCP/pulm preference) for evaluation of resolution of clot burden. Follow up cultures: N/A Reviewed progress notes, labs, and inpatient medication list Continue current management Additional recommendations: Continue with BiPAP PRN. Patient does get great relief while the BiPAP is in place particularly when he has coughing fits as he has great trouble clearing mucous. Thank you for allowing us to participate in the care of this patient. At this time, Critical Care Services will sign off on this case. Please feel free to reconsult as needed. Consults & Procedures Consultants: [facility]
[2018-01-04] MEDS: IMIPENEM/CILASTATIN IV 400 MG in DEXTROSE 5% 100ML 100 ML IV SCH ×2 (02:52→07:44)
[2018-01-04] MEDS: LEVALBUTEROL 1.25MG/0.5ML NEB INH SCH ×6 (03:09→22:25)
[2018-01-04] MEDS: IPRATROPIUM BROMIDE NEB SOLN 0.02% 2.5 ML VIAL INH SCH ×6 (03:09→22:24)
[2018-01-04] MEDS ORDERED: VANCOMYCIN TROUGH ONE (03:30)
[2018-01-04] MEDS: METHYLPREDNISOLONE IV 40 MG in SYRINGE 0 ML IV SCH ×3 (04:20→21:31)
[2018-01-04] MEDS: VANCOMYCIN IV 1,000 MG in SODIUM CHLORIDE 0.9% 250ML 250 ML IV SCH (04:20)
[2018-01-04] MEDS: CARVEDILOL 12.5 MG TAB PO SCH ×2 (07:37→21:31)
[2018-01-04] MEDS: PANTOprazole INJ 40 MG in SYRINGE 0 ML IV SCH (07:37)
[2018-01-04] MEDS: DABIGATRAN ELEXILATE 75 MG CAP PO SCH ×2 (07:38→21:32)
[2018-01-04] MEDS: PRAVASTATIN SOD 40 MG TAB PO SCH (07:38)
[2018-01-04] MEDS: INSULIN ASPART 100 UNITS/ML 3 ML PEN SC SCH ×4 (07:42→21:48)
[2018-01-04] MEDS: INSULIN GLARGINE SOLOSTAR 100 UNITS/ML 3 ML PEN SC SCH ×2 (07:43→21:49)
--- NOTE | 2018-01-04 09:22 | Cardiology Follow-Up ---
Subjective General Date of Service: Jan 04, 2018. Chief Complaint: SOB Pt evaluation today including: conversation w/ patient, physical exam, chart review, lab review, review of studies, review of inpatient medication list History of Present Illness Patient feeling ok. Breathing "about the same". Cough improving. Denies chest pain. No dizziness or palpitations. No orthopnea or edema. Allergies Coded Allergies: Penicillins (Verified Allergy, Unknown, BLISTERS, 01/01/18) Social History Smoking Status: Never Smoker Hx Tobacco Use In Past Year?: No Hx Alcohol Use - Type And Amou: No Hx Substance Use - Type And Am: No Problem List Medical Problems: (1) Acute respiratory failure with hypoxia Status: Acute (2) Chronic hypoxemic respiratory failure Status: Chronic (3) CKD (chronic kidney disease), stage III Status: Chronic (4) Fibrotic lung diseases Status: Acute (5) Hypertension Status: Chronic (6) Hypoxia Status: Acute (7) ILD (interstitial lung disease) Status: Chronic (8) Pulmonary embolism Status: Acute (9) Steroid-induced diabetes mellitus Status: Chronic Review of Systems Respiratory: + cough, + shortness of breath, + dyspnea at rest, No sputum, No wheezing, No hemoptysis Cardiac: No chest pain, No orthopnea, No PND, No edema, No palpitations Physical Exam Vital Signs Last Vital Signs Documentation Date Time Temp Pulse Resp B/P (MAP) Pulse Ox O2 Delivery O2 Flow Rate FiO2 01/04/18 08:00 36.5 80 26 110/64 (79) 96 Nasal Cannula 5.0 Humidified Oxygen 01/03/18 08:00 40 Physical Exam Constitutional: Level of Distress: NAD, mild distress, acutely ill, chronically ill Psychiatric: Mental Status: active & alert Orientation: to time, to place, to person Head: normocephalic Eyes: Pupils: PERRLA Neck: supple Lungs: Respiratory effort: dyspneic Auscultation: decreased breath sounds, dry rales/crackles Cardiovascular: Heart Auscultation: RRR, no murmurs Abdomen: Bowel Sounds: normal Inspection & Palpation: soft, non-distended Extremities: no edema Assessment and Plan Assessment and Plan IMPRESSION: Complex 77-year-old male 1. acute pulmonary embolus - anticoagulated with Pradaxa. 2. Acute on chronic respiratory failure with hypoxia secondary to underling interstitial lung disease. 3. NSTEMI secondary to respiratory distress/hypoxia. Preserved LV function on echo. 4. Anemia - monitor closely RECOMMENDATIONS: Continue anticoagulation wiht Pradaxa. Monitor hbg. Continue supplemental O2. Continue beta gallo and statin for possibly underlying CAD. Case discussed with Dr. Nur. Will follow. Patient was seen and examined sleeping comfortable this morning. Remains hypoxic with significant O2 demands. Notes no bleeding difficulties on current dosing of anticoagulation, heart rate and blood pressure control. Impression: Non-ST elevation myocardial infarction secondary to demand based effects of acute pulmonary embolus superimposed on chronic interstitial lung disease we will continue current management Wilfredo Nur MD Laboratory Results Last 24 Hours Test 01/03/18 11:32 01/03/18 13:45 01/03/18 16:51 01/03/18 20:54 Bedside Glucose 154 mg/dl 183 mg/dl 194 mg/dl Hemoglobin 8.6 g/dL Hematocrit 25.9 % Activated Partial Thromboplast Time 50.2 SECONDS Partial Thromboplastin Ratio 1.9 Test 01/04/18 03:25 01/04/18 06:49 Vancomycin Level Trough 16.9 mcg/ml Bedside Glucose 135 mg/dl
--- NOTE | 2018-01-04 11:55 | Pharmacy Progress Note ---
Pharmacy Glycemic Short Note 2 Date of Service Jan 04, 2018. OUTPATIENT ANTIDIABETIC REGIMEN: * Novolog per sliding scale * A1c reduced from last admission just a few days ago, which was 10% on 12/27/17 ASSESSMENT: * Mr Pelaez is a 77 y/o M with a PMH of pulmonary fibrosis, CHF, CKD, and uncontrolled type 2 diabetes who presented with bilateral PEs. The patent is currently receiving high-dose steroids (Solu-Medrol 40 mg IV d1qokby). He was transitioned off a heparin infusion yesterday and started on Pradaxa. * Yesterday, Mr Pelaez's blood sugars were [phone] mg/dL. Fasting today is 135 mg/dL compared to 151 mg/dL yesterday. The patient received 49 units of insulin of which 32 units were basal insulin. Typically with steroids, it is desired to have a 40-60 split with 40% of the insulin being basal. Will continue with the current scale as it has both weight-based stress of 2 and 3 Lantus doses available. Uncertain when steroids will be tapered so want lower dose of Lantus available. Also patient will only received weight-based stress of 3 Lantus if blood sugar over 180 mg/dL. * To try to reduce blood sugars more effectively, will tighten Novolog in both correction factor and carbohydrate ratio. This will hopefully reduce creep upwards. PLAN FOR INPATIENT GLYCEMIC CONTROL: * Basal insulin - adjust scale slightly * Hold for BSG less than 110 * Lantus 13 units BID for BSG 110-180 * Lantus 19 units BID for BSG > 180 * Correctional Insulin with NOVOLOG per scale ACHS or Q6hrs while NPO TIGHTEN * Goal Range: Low 110 mg/dL - High 140 mg/dL * Correction Factor: 20 mg/dL/unit * Nutritional / Prandial insulin per carb ratio of 1 unit per 5 grams CHO consumed PLAN FOR DISCHARGE: * A1c improved significantly from earlier in the month * Continue sliding scale Novolog with close monitoring of BSGs - if steroid- related, may only require this when taking steroids?
[2018-01-04 11:59] LABS: CREATININE 1.05 mg/dl (0.60-1.40)
--- NOTE | 2018-01-04 12:39 | Progress Note ---
Internal Med Progress Note Date of Service: Jan 04, 2018. Provider Documentation: SUBJECTIVE: The patient does seen and examined in ICU. He was admitted with acute respiratory failure secondary to pulmonary embolism with history of bilateral lung fibrosis. Noted to have community-acquired pneumonia on presentation as well. He feels a little better today and his saturation maintained with BiPAP at this time. Denies to any chest pain palpitation and does not have any nausea and/or vomiting 01/03-01/04 Much better today Denies any symptoms at rest No more desaturation ,remains stable OBJECTIVE: Vital Signs-as noted below Exam: General-No distressed at rest Eyes-normal ENT-normal Neck-supple Lungs-decreased breath sounds bilaterally with bibasilar crackles Heart-regular, no murmur appreciated Abdomen-benign, distended, soft, bowel sounds present Extremities-trace edema bilaterally Neuro-alert awake oriented 3, no focal neuro deficit appreciated Lab data as noted below' ASSESSMENT & PLAN: Hypoxemic respiratory failure: Acute on chronic hypoxemic respiratory failure, possible secondary to pulmonary emboli Patient has advanced interstitial lung disease on chronic oxygen 3 L via nasal cannula Complicated by CAP Patient is placed on BiPAP Discussed with patient and family okay for ventilation ventilator support Clinically much better now Appreciate Speech Pathology Teacher input Tolerating NC Oxygen-BIPAP PRN Clinically better PT/OT evaluation CAP CT chest with contrast: 1. Acute pulmonary embolus in segmental and subsegmental branches to the right lower lobe. No CT evidence of right heart strain. 2. Interval development of patchy groundglass opacities. This is concerning for either an acute infectious etiology or acute on chronic exacerbation of underlying fibrotic lung disease. 3. 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 No honeycombing to suggest a UIP pattern. 4. Suspected reactive mediastinal and right hilar lymphadenopathy, new from prior. 5. Bilateral nephrolithiasis. shows patchy groundglass opacities, possible infectious etiology Patient will be empirically treated with Levaquin (allergy to penicillin); Levaquin is stopped On IV vancomycin and Imipenem Blood culture-negative: Sputum culture ordered-pending Repeat CXR:IMPRESSION: 1. Hazy mid to basilar predominant opacities concerning for a focal infiltrate superimposed on chronic lung disease/fibrosis. This could represent multifocal pneumonia, pulmonary edema, or acute on chronic fibrotic changes. Clinically better CXR -not convincing of Pneumonia Will stop antibiotic after 72 hours Pulmonary emboli: Patient has been sedentary since discharge from hospital on December 28 Started on IV heparin weight-based protocol H&H will be monitored closely due to recent history of GI bleed Order for lower extremity Doppler to rule out DVT-NO DVT but has Superficial Thrombophlebitis Has been started on Pradaxa Recent GI bleed: Recent admission on 12/21 -12/28/2017: For possible acute diverticular bleeding Hemoglobin stable Monitor closely every 8 hours while on therapeutic anticoagulation Elevated troponin: Possible secondary to hypoxemia, respiratory distress Serial cardiac markers will be monitored Increasing serial Troponin-now decreasing Cardiology consulted -appreciate Input No further recommendation CKD stage III Renal function approximate baseline 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 Has been started on small dose of steroid Will decrease dose of steroid and taper as directed Hypertension: Borderline hypotension systolic in low 100 Continue Coreg with holding parameters Hold clonidine CODE STATUS: Full code DVT prophylaxis: IV heparin weight-based protocol Disposition: Likely discharge in a day or two Vital Signs: Date Time Temp Pulse Resp B/P (MAP) Pulse Ox O2 Delivery O2 Flow Rate FiO2 01/04/18 12:00 Nasal Cannula 6.0 01/04/18 11:47 36.4 59 20 109/59 (76) 96 Nasal Cannula 4.0 Humidified Oxygen 01/04/18 11:04 64 20 92 Nasal Cannula 4.0 01/04/18 08:00 36.5 80 26 110/64 (79) 96 Nasal Cannula 5.0 Humidified Oxygen 01/04/18 08:00 Nasal Cannula 6.0 01/04/18 06:54 65 20 90 Nasal Cannula 6.0 01/04/18 04:00 92 Nasal Cannula 6.0 01/04/18 03:34 36.4 69 18 120/62 (81) 95 01/04/18 03:10 69 20 92 Nasal Cannula 6.0 01/04/18 00:15 36.9 81 26 108/59 (75) 95 01/03/18 23:59 92 Nasal Cannula 6.0 01/03/18 23:32 71 22 90 Nasal Cannula 6.0 01/03/18 20:00 92 Nasal Cannula 6.0 01/03/18 19:28 36.6 80 24 104/61 (75) 93 Nasal Cannula 6.0 Humidified Air 01/03/18 19:09 70 20 92 Nasal Cannula 6.0 01/03/18 16:37 36.6 81 24 128/51 (76) 96 Nasal Cannula 4.0 01/03/18 16:00 Nasal Cannula 01/03/18 14:43 81 24 93 Nasal Cannula 6.0 01/03/18 14:00 70 29 97/51 (66) 97 Nasal Cannula 4.0 Lab Results: Results Past 24 Hours Test 01/03/18 13:45 01/03/18 16:51 01/03/18 20:54 01/04/18 03:25 Range/Units Hemoglobin 8.6 14.0-18.0 g/dL Hematocrit 25.9 42-52 % Activated Partial Thromboplast Time 50.2 21.0-31.0 SECONDS Partial Thromboplastin Ratio 1.9 Bedside Glucose 183 194 70-99 mg/dl Creatinine 1.05 0.60-1.40 mg/dl Est Creatinine Clear Calc Drug Dose 53.0 ml/min Estimated GFR () 77.9 Estimated GFR (Non- 67.2 Vancomycin Level Trough 16.9 SEE COMMENT mcg/ml Test 01/04/18 06:49 01/04/18 11:16 Range/Units Bedside Glucose 135 167 70-99 mg/dl Microbiology Results 01/04/18 Gram Stain, Received Pending 01/04/18 Sputum Culture, Received Pending
[2018-01-04] MEDS: IMIPENEM/CILASTATIN IV 300 MG in DEXTROSE 5% 100ML 100 ML IV SCH ×2 (14:25→21:30)
[2018-01-05] VITALS (12 sets, daily range): BP systolic 115–152; BP diastolic 65–79; PULSE 61–96; TEMP 36.4–36.6; O2SAT 88–98
[2018-01-05] MEDS: IPRATROPIUM BROMIDE NEB SOLN 0.02% 2.5 ML VIAL INH SCH ×6 (03:14→23:56)
[2018-01-05] MEDS: LEVALBUTEROL 1.25MG/0.5ML NEB INH SCH ×6 (03:15→23:56)
[2018-01-05] MEDS: IMIPENEM/CILASTATIN IV 300 MG in DEXTROSE 5% 100ML 100 ML IV SCH ×3 (04:07→15:38)
[2018-01-05] MEDS: PRAVASTATIN SOD 40 MG TAB PO SCH (07:51)
[2018-01-05] MEDS: DABIGATRAN ELEXILATE 75 MG CAP PO SCH ×2 (07:51→21:00)
[2018-01-05] MEDS: CARVEDILOL 12.5 MG TAB PO SCH ×2 (07:51→21:00)
[2018-01-05 08:07] LABS: CREATININE 0.9 mg/dl (0.60-1.40)
[2018-01-05] MEDS: INSULIN GLARGINE SOLOSTAR 100 UNITS/ML 3 ML PEN SC SCH ×2 (08:12→21:08)
[2018-01-05] MEDS: INSULIN ASPART 100 UNITS/ML 3 ML PEN SC SCH ×4 (08:12→21:07)
[2018-01-05] MEDS: PANTOprazole SOD 40 MG TAB PO SCH (08:35)
[2018-01-05] MEDS: METHYLPREDNISOLONE IV 40 MG in SYRINGE 0 ML IV SCH ×2 (09:06→21:03)
--- NOTE | 2018-01-05 11:00 | Cardiology Follow-Up ---
Subjective General Date of Service: Jan 05, 2018. Chief Complaint: SOB Pt evaluation today including: conversation w/ patient, conversation w/ family History of Present Illness The patient is a 77 year old male admitted with acute pulmonary embolus superimposed on chronic interstitial lung disease, UIP type Allergies Coded Allergies: Penicillins (Verified Allergy, Unknown, BLISTERS, 01/01/18) Social History Smoking Status: Never Smoker Hx Tobacco Use In Past Year?: No Hx Alcohol Use - Type And Amou: No Hx Substance Use - Type And Am: No Problem List Medical Problems: (1) Acute respiratory failure with hypoxia Status: Acute (2) Chronic hypoxemic respiratory failure Status: Chronic (3) CKD (chronic kidney disease), stage III Status: Chronic (4) Fibrotic lung diseases Status: Acute (5) Hypertension Status: Chronic (6) Hypoxia Status: Acute (7) ILD (interstitial lung disease) Status: Chronic (8) Pulmonary embolism Status: Acute (9) Steroid-induced diabetes mellitus Status: Chronic Review of Systems Respiratory: + shortness of breath, + dyspnea at rest Cardiac: + see HPI, + orthopnea, + PND, + edema, + claudication, + problem reported, No chest pain, No palpitations Physical Exam Vital Signs Last Vital Signs Documentation Date Time Temp Pulse Resp B/P (MAP) Pulse Ox O2 Delivery O2 Flow Rate FiO2 01/05/18 08:53 36.4 96 28 139/66 (90) 96 Nasal Cannula 6.0 01/03/18 08:00 40 Physical Exam Constitutional: Level of Distress: NAD, mild distress, acutely ill, chronically ill Psychiatric: Mental Status: active & alert Orientation: to time, to place, to person Head: normocephalic Eyes: Pupils: PERRLA Neck: supple Lungs: Respiratory effort: dyspneic Auscultation: decreased breath sounds, dry rales/crackles Cardiovascular: Heart Auscultation: RRR, no murmurs Abdomen: Bowel Sounds: normal Inspection & Palpation: soft, non-distended Extremities: no edema Assessment and Plan Assessment and Plan IMPRESSION: Complex 77-year-old male 1. Acute pulmonary embolus - anticoagulated with Pradaxa. 2. Acute on chronic respiratory failure with hypoxia secondary to underling interstitial lung disease. 3. NSTEMI secondary to respiratory distress/hypoxia. Preserved LV function on echo. 4. Anemia - monitor closely RECOMMENDATIONS: Continue anticoagulation with Pradaxa. Monitor hbg. Continue supplemental O2. Continue beta gallo and statin for possibly underlying CAD. Discussed findings with patient and family, son. Goals are to increase oxygenation. Patient has been using BiPAP in hospital and may benefit from use at home. Underlying lung disease is expected to be progressive. Would not restart clonidine Laboratory Results Last 24 Hours Test 01/04/18 11:16 01/04/18 16:13 01/04/18 20:55 01/05/18 06:39 Bedside Glucose 167 mg/dl 154 mg/dl 151 mg/dl 117 mg/dl Test 01/05/18 07:07 Creatinine 0.90 mg/dl Est Creatinine Clear Calc Drug Dose 61.9 ml/min Estimated GFR () 93.8 Estimated GFR (Non- 80.9
--- NOTE | 2018-01-05 11:48 | Pharmacy Progress Note ---
Pharmacy Glycemic Short Note 2 Date of Service Jan 05, 2018. OUTPATIENT ANTIDIABETIC REGIMEN: * Novolog per sliding scale * A1c reduced from last admission just a few days ago, which was 10% on 12/27/17 ASSESSMENT: * Mr Pelaez is a 77 y/o M with a PMH of pulmonary fibrosis, CHF, CKD, and uncontrolled type 2 diabetes who presented with bilateral PEs. The patent was transitioned from three days of Solu-Medrol 40 mg IV q6 to 40 mg IV q12 yesterday. * Yesterday, Mr Pelaez's blood sugars were [phone] mg/dL. Fasting today is 117 mg/dL compared to 135 mg/dL yesterday. The patient received 45 units of insulin of which 26 units were basal insulin. Typically with steroids, it is desired to have a 40-60 split with 40% of the insulin being basal. Since steroids will be tapered to oral soon, reduced scale to include slightly more than weight-based stress of 1 and remove weight-based stress of 3. * With reduction in steroids, loosened Novolog for lunch. PLAN FOR INPATIENT GLYCEMIC CONTROL: * Basal insulin - adjust scale slightly * Hold for BSG less than 110 * Lantus 9 units BID for BSG 110-180 * Lantus 13 units BID for BSG > 180 * Correctional Insulin with NOVOLOG per scale ACHS or Q6hrs while NPO LOOSEN SLIGHTLY * Goal Range: Low 110 mg/dL - High 140 mg/dL * Correction Factor: 25 mg/dL/unit * Nutritional / Prandial insulin per carb ratio of 1 unit per 6 grams CHO consumed PLAN FOR DISCHARGE: * A1c improved significantly from earlier in the month * Continue sliding scale Novolog with close monitoring of BSGs - if steroid- related, may only require this when taking steroids?
--- NOTE | 2018-01-05 18:58 | Progress Note ---
Subjective Date of Service: Jan 05, 2018. Subjective Pt evaluation today including: conversation w/ patient, physical exam, lab review, review of studies, review of inpatient medication list Saw/examined the patient in room 207 currently laying in bed; was seated in a chair earlier as per nursing states he gets short of breath with any type of exertion currently saturating well on 6L of O2 - at home uses around 3-4L Problem List Medical Problems: (1) Acute respiratory failure with hypoxia Status: Acute (2) Chronic hypoxemic respiratory failure Status: Chronic (3) CKD (chronic kidney disease), stage III Status: Chronic (4) Fibrotic lung diseases Status: Acute (5) Hypertension Status: Chronic (6) Hypoxia Status: Acute (7) ILD (interstitial lung disease) Status: Chronic (8) Pulmonary embolism Status: Acute (9) Steroid-induced diabetes mellitus Status: Chronic Review of Systems Constitutional: No fever, No chills Respiratory: + shortness of breath, + dyspnea on exertion, No cough, No sputum , No wheezing, No dyspnea at rest, No hemoptysis Cardiac: No chest pain, No edema, No palpitations Abdomen: No pain, No nausea, No vomiting, No diarrhea Medications Current Inpatient Medications Medications (Trade) Dose Ordered Sig/Aure Route Start Time Stop Time Status Last Admin Dose Admin Levalbuterol (Xopenex 1.25MG/ 0.5ML Neb) 1.25 mg Q4R INH 01/02/18 00:00 02/01/18 00:00 01/05/18 14:54 1.25 MG Ipratropium [place] (Atrovent 0.02% 0.5MG/2.5ML Neb) 0.5 mg Q4R INH 01/02/18 00:00 02/01/18 00:00 01/05/18 14:54 0.5 MG Nitroglycerin (Nitrostat Tab) 0.4 mg UD PRN SL 01/01/18 20:00 01/31/18 19:59 Ondansetron HCl (Zofran Inj) 4 mg Q6H PRN IV 01/01/18 20:00 01/31/18 19:59 Carvedilol (Coreg Tab) 12.5 mg BID PO 01/02/18 09:00 02/01/18 08:59 01/05/18 07:51 12.5 MG Pravastatin Sodium (Pravachol Tab) 80 mg DAILY PO 01/02/18 09:00 02/01/18 08:59 01/05/18 07:51 80 MG Glucose (Glucose 40% Gel) 15-30 GRAMS 15 GRAMS... UD PRN PO 01/01/18 20:00 01/31/18 19:59 Glucose (Glucose Chew Tab) 4-8 Tablets 4 Tabl... UD PRN PO 01/01/18 20:00 01/31/18 19:59 Dextrose (Dextrose 50% 50ML Syringe) 25-50ML OF 50% DW IV FOR... UD PRN IV 01/01/18 20:00 01/31/18 19:59 Glucagon (Glucagon Inj) 1 mg UD PRN SQ 01/01/18 20:00 01/31/18 19:59 Miscellaneous Information (Consult Glycemic Management Pharmacy) 1 ea UD PRN N/A 01/01/18 20:15 01/31/18 20:14 Imipenem/ Cilastatin Sodium (Consult) 1 ea UD PRN N/A 01/02/18 02:45 02/01/18 02:44 Insulin Glargine (Lantus Solostar Pen) SEE PROTOCOL TEXT BID SC 01/02/18 21:00 02/01/18 20:59 01/05/18 08:12 13 UNITS Insulin Aspart (novoLOG ASPART) SLIDING SCALE ACHS SC 01/02/18 11:00 02/01/18 07:29 01/05/18 17:00 9 UNITS Dabigatran (Pradaxa Cap) 150 mg BID PO 01/03/18 21:00 02/02/18 20:59 01/05/18 07:51 150 MG Methylprednisolone Sodium Succinate 40 mg/Syringe 0.64 ml @ 1.5 mls/min Q12H IV 01/04/18 22:00 02/01/18 09:59 01/05/18 09:06 1.5 MLS/MIN Imipenem/ Cilastatin Sodium 300 mg/Dextrose 106 ml @ 106 mls/hr Q6H IV 01/04/18 15:00 01/10/18 14:59 01/05/18 15:38 106 MLS/HR Pantoprazole Sodium (Protonix Tab) 40 mg QAM PO 01/05/18 09:00 02/04/18 08:59 01/05/18 08:35 40 MG Objective Vital Signs Date Time Temp Pulse Resp B/P (MAP) Pulse Ox O2 Delivery O2 Flow Rate FiO2 01/05/18 16:06 36.6 80 26 152/79 (103) 93 6.0 01/05/18 16:00 Nasal Cannula 6.0 01/05/18 14:55 77 16 94 Nasal Cannula 6.0 01/05/18 12:00 36.6 69 14 149/74 (99) 92 Nasal Cannula 6.0 Humidified Oxygen 01/05/18 12:00 Nasal Cannula 6.0 01/05/18 11:00 72 16 93 Nasal Cannula 6.0 01/05/18 08:53 36.4 96 28 139/66 (90) 96 Nasal Cannula 6.0 01/05/18 08:00 Nasal Cannula 6.0 01/05/18 07:08 74 16 93 Nasal Cannula 5.0 01/05/18 04:00 Nasal Cannula 5.0 01/05/18 03:46 36.6 66 20 115/65 (82) 98 01/05/18 03:15 61 16 93 Nasal Cannula 5.0 01/04/18 23:59 Nasal Cannula 5.0 01/04/18 23:50 36.5 70 18 127/69 (88) 97 5.0 01/04/18 22:25 84 16 96 Nasal Cannula 5.0 01/04/18 20:00 Nasal Cannula 5.0 01/04/18 19:31 81 16 91 Nasal Cannula 5.0 01/04/18 19:27 36.4 82 20 123/79 (94) 94 Nasal Cannula 5.0 Physical Exam General Appearance: + mild distress Respiratory/Chest: no respiratory distress, no accessory muscle use, + respiratory distress, + decreased breath sounds, + rhonchi Cardiovascular: regular rate, rhythm, no edema Extremities: normal inspection, no pedal edema Neurologic/Psychiatric: no motor/sensory deficits, alert, normal mood/affect Laboratory Results Last 24 Hours Test 01/04/18 20:55 01/05/18 06:39 01/05/18 07:07 01/05/18 11:16 Bedside Glucose 151 mg/dl 117 mg/dl 129 mg/dl Creatinine 0.90 mg/dl Est Creatinine Clear Calc Drug Dose 61.9 ml/min Estimated GFR () 93.8 Estimated GFR (Non- 80.9 Test 3/27/18 16:06 Bedside Glucose 150 mg/dl Assessment and Plan This is a 77 year old male with a PMH of interstitial lung disease and pulmonary fibrosis with chronic respiratory failure on 3L of continuous O2, CKD stage 3, HTN, HLD, hx. of CVA - presents with worsening shortness of breath and subsequently found to have acute R lower lobe pulmonary embolism Acute on Chronic Hypoxic Respiratory Failure Acute Pulmonary Embolism Pulmonary Fibrosis/Interstitial Lung Disease - chronically uses around 3L of O2 at home; sometimes uses 4L - currently he is requiring 6L via NC - intermittently requiring bipap - started on Pradaxa for PE, which we can continue; now off of the heparin drip - outpatient pulmonary input needed - follows with pulmonology in [facility] - doubt pneumonia - will stop Imipenem - continue IV steroids for now, transition to PO in 1-2 days - nebulizers as needed NSTEMI - elevated troponin, peaked >2 - likely due to heart strain from the pulmonary embolism - preserved LVEF - was on IV heparin, now off of it - aspirin held due to Pradaxa started - continue b-gallo (Coreg) and statin Recent GI bleed - recent admission with possible acute diverticular bleed - now started on Pradaxa to treat the PE - monitor H/H close and monitor for any GI bleeding CKD stage III - creat at baseline Hyperglycemia secondary to Steroid Use - insulin sliding scale - Lantus changed around today; appreciate glycemic control pharmacist HTN - continue Coreg - stop clonidine on discharge DVT ppx - Pradaxa DNR
[2018-01-06] VITALS (11 sets, daily range): BP systolic 125–141; BP diastolic 22–88; PULSE 60–100; TEMP 36.3–36.9; O2SAT 77–97
[2018-01-06] MEDS: LEVALBUTEROL 1.25MG/0.5ML NEB INH SCH ×6 (03:12→23:08)
[2018-01-06] MEDS: IPRATROPIUM BROMIDE NEB SOLN 0.02% 2.5 ML VIAL INH SCH ×6 (03:12→23:08)
[2018-01-06 05:43] LABS: HEMOGLOBIN 9.1 g/dL (14.0-18.0); MEAN CELL VOLUME 101.8 fL (80-100); MEAN CORPUSCULAR HEMOGLOBIN 33.1 pg (25-34); MEAN CORPUSCULAR HGB CONC 32.5 g/dl (32-36); MEAN PLATELET VOLUME 9.4 fL (7.4-10.4); NUCLEATED RED BLOOD CELL ABS 0.18 K/uL (0-0); PLATELET COUNT 547 K/uL (130-400); RED CELL DISTRIBUTION WIDTH CV 18.4 % (11.5-14.5); RED CELL DISTRIBUTION WIDTH SD 66.5 fL (36.4-46.3); WHITE BLOOD COUNT 12.57 K/uL (4.8-10.8)
[2018-01-06 06:15] LABS: CALCIUM 8.1 mg/dl (8.5-10.1); CREATININE 0.89 mg/dl (0.60-1.40); POTASSIUM 3.9 mmol/L (3.5-5.1)
[2018-01-06] MEDS: PANTOprazole SOD 40 MG TAB PO SCH (07:50)
[2018-01-06] MEDS: CARVEDILOL 12.5 MG TAB PO SCH ×2 (07:50→21:00)
[2018-01-06] MEDS: PRAVASTATIN SOD 40 MG TAB PO SCH (07:52)
[2018-01-06] MEDS: DABIGATRAN ELEXILATE 75 MG CAP PO SCH ×2 (07:53→21:00)
[2018-01-06] MEDS: INSULIN GLARGINE SOLOSTAR 100 UNITS/ML 3 ML PEN SC SCH (07:58)
[2018-01-06] MEDS: INSULIN ASPART 100 UNITS/ML 3 ML PEN SC SCH ×4 (08:04→21:00)
--- NOTE | 2018-01-06 08:48 | Progress Note ---
Subjective Date of Service: Jan 06, 2018. Subjective Pt evaluation today including: conversation w/ patient, physical exam, lab review, review of studies, review of inpatient medication list Saw/examined the patient in room 207 Doing okay today, no acute problems/issues to note today Problem List Medical Problems: (1) Acute respiratory failure with hypoxia Status: Acute (2) Chronic hypoxemic respiratory failure Status: Chronic (3) CKD (chronic kidney disease), stage III Status: Chronic (4) Fibrotic lung diseases Status: Acute (5) Hypertension Status: Chronic (6) Hypoxia Status: Acute (7) ILD (interstitial lung disease) Status: Chronic (8) Pulmonary embolism Status: Acute (9) Steroid-induced diabetes mellitus Status: Chronic Review of Systems Constitutional: No fever, No chills Respiratory: + cough, + sputum, + shortness of breath, + dyspnea on exertion, + dyspnea at rest, No wheezing, No hemoptysis Cardiac: No chest pain, No edema, No palpitations Abdomen: No pain, No nausea, No vomiting, No diarrhea Medications Current Inpatient Medications Medications (Trade) Dose Ordered Sig/Aure Route Start Time Stop Time Status Last Admin Dose Admin Levalbuterol (Xopenex 1.25MG/ 0.5ML Neb) 1.25 mg Q4R INH 01/02/18 00:00 02/01/18 00:00 01/06/18 06:51 1.25 MG Ipratropium [place] (Atrovent 0.02% 0.5MG/2.5ML Neb) 0.5 mg Q4R INH 01/02/18 00:00 02/01/18 00:00 01/06/18 06:51 0.5 MG Nitroglycerin (Nitrostat Tab) 0.4 mg UD PRN SL 01/01/18 20:00 01/31/18 19:59 Ondansetron HCl (Zofran Inj) 4 mg Q6H PRN IV 01/01/18 20:00 01/31/18 19:59 Carvedilol (Coreg Tab) 12.5 mg BID PO 01/02/18 09:00 02/01/18 08:59 01/06/18 07:50 12.5 MG Pravastatin Sodium (Pravachol Tab) 80 mg DAILY PO 01/02/18 09:00 02/01/18 08:59 01/06/18 07:52 80 MG Glucose (Glucose 40% Gel) 15-30 GRAMS 15 GRAMS... UD PRN PO 01/01/18 20:00 01/31/18 19:59 Glucose (Glucose Chew Tab) 4-8 Tablets 4 Tabl... UD PRN PO 01/01/18 20:00 01/31/18 19:59 Dextrose (Dextrose 50% 50ML Syringe) 25-50ML OF 50% DW IV FOR... UD PRN IV 01/01/18 20:00 01/31/18 19:59 Glucagon (Glucagon Inj) 1 mg UD PRN SQ 01/01/18 20:00 01/31/18 19:59 Miscellaneous Information (Consult Glycemic Management Pharmacy) 1 ea UD PRN N/A 01/01/18 20:15 01/31/18 20:14 Insulin Glargine (Lantus Solostar Pen) SEE PROTOCOL TEXT BID SC 01/02/18 21:00 02/01/18 20:59 01/06/18 07:58 9 UNITS Insulin Aspart (novoLOG ASPART) SLIDING SCALE ACHS SC 01/02/18 11:00 02/01/18 07:29 01/06/18 08:04 14 UNITS Dabigatran (Pradaxa Cap) 150 mg BID PO 01/03/18 21:00 02/02/18 20:59 01/06/18 07:53 150 MG Methylprednisolone Sodium Succinate 40 mg/Syringe 0.64 ml @ 1.5 mls/min Q12H IV 01/04/18 22:00 02/01/18 09:59 01/05/18 21:03 1.5 MLS/MIN Pantoprazole Sodium (Protonix Tab) 40 mg QAM PO 01/05/18 09:00 02/04/18 08:59 01/06/18 07:50 40 MG Objective Vital Signs Date Time Temp Pulse Resp B/P (MAP) Pulse Ox O2 Delivery O2 Flow Rate FiO2 01/06/18 07:41 36.3 67 139/71 (93) 90 Nasal Cannula 01/06/18 06:52 82 21 83 Nasal Cannula 5.0 01/06/18 04:00 Nasal Cannula 5.0 01/06/18 03:51 36.9 67 22 126/22 (56) 94 6.0 01/06/18 03:13 60 21 97 Nasal Cannula 6.0 01/06/18 00:03 36.7 70 24 131/72 (91) 96 01/05/18 23:59 Nasal Cannula 6.0 01/05/18 23:56 69 20 96 Nasal Cannula 6.0 01/05/18 20:00 96 Oxymask 10.0 01/05/18 19:18 36.5 79 26 129/73 (91) 96 Nasal Cannula 6.0 01/05/18 19:07 93 26 88 Nasal Cannula 6.0 01/05/18 16:06 36.6 80 26 152/79 (103) 93 6.0 01/05/18 16:00 Nasal Cannula 6.0 01/05/18 14:55 77 16 94 Nasal Cannula 6.0 01/05/18 12:00 36.6 69 14 149/74 (99) 92 Nasal Cannula 6.0 Humidified Oxygen 01/05/18 12:00 Nasal Cannula 6.0 01/05/18 11:00 72 16 93 Nasal Cannula 6.0 01/05/18 08:53 36.4 96 28 139/66 (90) 96 Nasal Cannula 6.0 Physical Exam General Appearance: + mild distress, + pertinent finding (chronically ill) Respiratory/Chest: no accessory muscle use, + respiratory distress (mild respiratory distress), + decreased breath sounds Cardiovascular: regular rate, rhythm, no edema, no murmur Extremities: normal inspection, no pedal edema Neurologic/Psychiatric: no motor/sensory deficits, alert, normal mood/affect Laboratory Results Last 24 Hours Test 01/05/18 11:16 01/05/18 16:06 01/05/18 20:32 01/06/18 05:27 Bedside Glucose 129 mg/dl 150 mg/dl 220 mg/dl White Blood Count 12.57 K/uL Red Blood Count 2.75 M/uL Hemoglobin 9.1 g/dL Hematocrit 28.0 % Mean Corpuscular Volume 101.8 fL Mean Corpuscular Hemoglobin 33.1 pg Mean Corpuscular Hemoglobin Concent 32.5 g/dl RDW Standard Deviation 66.5 fL RDW Coefficient of Variation 18.4 % Platelet Count 547 K/uL Mean Platelet Volume 9.4 fL Nucleated RBC Absolute Count (auto) 0.18 K/uL Nucleated Red Blood Cells % 1.5 % Sodium Level 137 mmol/L Potassium Level 3.9 mmol/L Chloride Level 106 mmol/L Carbon Dioxide Level 25 mmol/L Anion Gap 6.0 mmol/L Blood Urea Nitrogen 23 mg/dl Creatinine 0.89 mg/dl Est Creatinine Clear Calc Drug Dose 62.8 ml/min Estimated GFR () 94.3 Estimated GFR (Non- 81.3 BUN/Creatinine Ratio 25.9 Random Glucose 129 mg/dl Calcium Level 8.1 mg/dl Magnesium Level 2.3 mg/dl Assessment and Plan This is a 77 year old male with a PMH of interstitial lung disease and pulmonary fibrosis with chronic respiratory failure on 3L of continuous O2, CKD stage 3, HTN, HLD, hx. of CVA - presents with worsening shortness of breath and subsequently found to have acute R lower lobe pulmonary embolism Acute on Chronic Hypoxic Respiratory Failure Acute Pulmonary Embolism Pulmonary Fibrosis/Interstitial Lung Disease 01/06 - currently requiring 6L of O2 at baseline - abx. stopped - continue Pradaxa - change Solu-medrol to prednisone 01/05 - chronically uses around 3L of O2 at home; sometimes uses 4L - currently he is requiring 6L via NC - intermittently requiring bipap - started on Pradaxa for PE, which we can continue; now off of the heparin drip - outpatient pulmonary input needed - follows with pulmonology in [facility] - doubt pneumonia - will stop Imipenem - continue IV steroids for now, transition to PO in 1-2 days - nebulizers as needed NSTEMI - elevated troponin, peaked >2 - likely due to heart strain from the pulmonary embolism - preserved LVEF - was on IV heparin, now off of it - aspirin held due to Pradaxa started - continue b-gallo (Coreg) and statin Recent GI bleed - recent admission with possible acute diverticular bleed - now started on Pradaxa to treat the PE - monitor H/H close and monitor for any GI bleeding CKD stage III - creat at baseline Hyperglycemia secondary to Steroid Use - insulin sliding scale - Lantus changed around today; appreciate glycemic control pharmacist HTN - continue Coreg - stop clonidine on discharge DVT ppx - Pradaxa DNR
--- NOTE | 2018-01-06 10:13 | Cardiology Follow-Up ---
Subjective General Date of Service: Jan 06, 2018. Chief Complaint: SOB Pt evaluation today including: conversation w/ patient, physical exam, chart review, lab review, review of studies, review of inpatient medication list History of Present Illness Patient feeling ok this AM. Comfortable at rest. Notes dyspnea with any movement. No chest pain. Cough improved. No orthopnea, PND or increased edema. Allergies Coded Allergies: Penicillins (Verified Allergy, Unknown, BLISTERS, 01/01/18) Social History Smoking Status: Never Smoker Hx Tobacco Use In Past Year?: No Hx Alcohol Use - Type And Amou: No Hx Substance Use - Type And Am: No Problem List Medical Problems: (1) Acute respiratory failure with hypoxia Status: Acute (2) Chronic hypoxemic respiratory failure Status: Chronic (3) CKD (chronic kidney disease), stage III Status: Chronic (4) Fibrotic lung diseases Status: Acute (5) Hypertension Status: Chronic (6) Hypoxia Status: Acute (7) ILD (interstitial lung disease) Status: Chronic (8) Pulmonary embolism Status: Acute (9) Steroid-induced diabetes mellitus Status: Chronic Review of Systems Respiratory: + cough, + shortness of breath, + dyspnea on exertion, No wheezing , No dyspnea at rest Cardiac: No chest pain, No orthopnea, No PND, No edema, No palpitations Physical Exam Vital Signs Last Vital Signs Documentation Date Time Temp Pulse Resp B/P (MAP) Pulse Ox O2 Delivery O2 Flow Rate FiO2 01/06/18 08:00 Nasal Cannula 5.0 01/06/18 07:41 36.3 67 139/71 (93) 90 01/06/18 06:52 21 01/03/18 08:00 40 Physical Exam Constitutional: Level of Distress: NAD, acutely ill, chronically ill Psychiatric: Mental Status: active & alert Orientation: to time, to place, to person Head: normocephalic Eyes: Pupils: PERRLA Neck: supple Lungs: Respiratory effort: dyspneic Auscultation: decreased breath sounds, dry rales/crackles Cardiovascular: Heart Auscultation: RRR, no murmurs Abdomen: Bowel Sounds: normal Inspection & Palpation: soft, non-distended Extremities: no edema Assessment and Plan Assessment and Plan IMPRESSION: Complex 77-year-old male 1. acute pulmonary embolus - anticoagulated with Pradaxa. 2. Acute on chronic respiratory failure with hypoxia secondary to underling interstitial lung disease. 3. NSTEMI secondary to respiratory distress/hypoxia. Preserved LV function on echo. 4. Anemia - monitor closely RECOMMENDATIONS: Continue anticoagulation wiht Pradaxa. Monitor hbg. Continue supplemental O2. Continue beta gallo and statin for possibly underlying CAD. Case discussed with Dr. Nur Patient seen and assessed. Plan as noted above. Patient's predominant limiting factor to his underlying pulmonary issues with pulmonary consultation obtained. We will make no changes Wilfredo Nur MD Laboratory Results Last 24 Hours Test 01/05/18 11:16 01/05/18 16:06 01/05/18 20:32 01/06/18 05:27 Bedside Glucose 129 mg/dl 150 mg/dl 220 mg/dl White Blood Count 12.57 K/uL Red Blood Count 2.75 M/uL Hemoglobin 9.1 g/dL Hematocrit 28.0 % Mean Corpuscular Volume 101.8 fL Mean Corpuscular Hemoglobin 33.1 pg Mean Corpuscular Hemoglobin Concent 32.5 g/dl RDW Standard Deviation 66.5 fL RDW Coefficient of Variation 18.4 % Platelet Count 547 K/uL Mean Platelet Volume 9.4 fL Nucleated RBC Absolute Count (auto) 0.18 K/uL Nucleated Red Blood Cells % 1.5 % Sodium Level 137 mmol/L Potassium Level 3.9 mmol/L Chloride Level 106 mmol/L Carbon Dioxide Level 25 mmol/L Anion Gap 6.0 mmol/L Blood Urea Nitrogen 23 mg/dl Creatinine 0.89 mg/dl Est Creatinine Clear Calc Drug Dose 62.8 ml/min Estimated GFR () 94.3 Estimated GFR (Non- 81.3 BUN/Creatinine Ratio 25.9 Random Glucose 129 mg/dl Calcium Level 8.1 mg/dl Magnesium Level 2.3 mg/dl Test 01/06/18 06:40 Bedside Glucose 138 mg/dl
--- NOTE | 2018-01-06 10:15 | Pharmacy Progress Note ---
Pharmacy Glycemic Short Note 2 Date of Service Jan 06, 2018. OUTPATIENT ANTIDIABETIC REGIMEN: * Novolog per sliding scale * A1c reduced from last admission just a few days ago, which was 10% on 12/27/17 ASSESSMENT: * Mr Pelaez is a 77 y/o M with a PMH of pulmonary fibrosis, CHF, CKD, and uncontrolled type 2 diabetes who presented with bilateral PEs. The patent was transitioned from three days of Solu-Medrol 40 mg IV q6 to 40 mg IV q12 the other day. Today is the first day of prednisone 50 mg PO daily. * Yesterday, Mr Pelaez's blood sugars were 135-268-692-220 mg/dL. Fasting today is 138 mg/dL compared to 117 mg/dL yesterday. The patient received 54 units of insulin of which 26 units were basal insulin. Typically with steroids, it is desired to have a 40-60 split with 40% of the insulin being basal. With transition to oral steroids and documentation that the patient's diabetes is secondary to steroids, will remove Lantus and add NPH 0.4 units/kg. Start today with lunch. This will test the theory of solely steroid induced hyperglycemia. Patient will be able to self-correct overnight. * Loosened Novolog to weight-based stress of 3 dosing with addition of NPH. PLAN FOR INPATIENT GLYCEMIC CONTROL: * Basal insulin * NPH 30 units SQ with lunch today then daily with breakfast * Correctional Insulin with NOVOLOG per scale ACHS or Q6hrs while NPO LOOSEN SLIGHTLY * Goal Range: Low 110 mg/dL - High 140 mg/dL * Correction Factor: 25 mg/dL/unit * Nutritional / Prandial insulin per carb ratio of 1 unit per 7 grams CHO consumed PLAN FOR DISCHARGE: * A1c improved significantly from earlier in the month * Continue sliding scale Novolog with close monitoring of BSGs - if steroid- related, may only require this when taking steroids?
[2018-01-06] MEDS: INSULIN HUMAN NPH SC SCH (11:53)
--- NOTE | 2018-01-06 12:29 | PULMONARY CONSULTATION ---
DATE OF CONSULTATION: 01/06/2018 TIME: 11:10 a.m. REPORT OF CONSULTATION: The patient was seen in room #207. Consultation is requested because of the need for high levels of oxygen supplementation. He is a 77-year-old male who was recently hospitalized from December 21 through December 28 with GI bleeding. He could not undergo endoscopy or colonoscopy because of desaturations in the endoscopy unit. It was ultimately thought that he perhaps had diverticular bleeding. The patient does carry a history of pulmonary fibrosis. He has been cared for by Dr. Stearns at [facility]. A lung biopsy was done likely in 2017. The patient does not know the exact diagnosis. He states he was given high dose prednisone. This was supposed to be for a 3-month course. Before then, however, he was found to have blood sugars greater than 600. The steroids were then tapered down much more rapidly. He again was tried a lower dose of prednisone with somewhat similar findings. He thinks the prednisone may have helped somewhat. He states he has not been able to get back to see Dr. Stearns for quite some time because of his oxygen levels being low. He estimates that it may have been 6 months or more since he saw him. The patient was readmitted on January 01. He came in at time again with progressive shortness of breath and hypoxia. He was in severe distress such that his oxygen saturations in the ER was as low as 66% on 4 liters and his respiratory rate was 48. He was put on BiPAP with some benefit. It should be noted that during his prior hospital stay, a CAT scan had suggested that he had some pneumomediastinum. The BiPAP clinically seemed to help the patient. He was found to have pulmonary emboli. A CT angio of the chest done on the date of this admission showed an acute pulmonary embolism in the segmental and subsegmental branches to the right lower lobe. He was found to have significant diffuse interstitial lung disease. He was suspected of having mild mediastinal and right hilar lymphadenopathy. The patient has not been doing well. He has severe coughing spells precipitated by any movement or just talking sometimes. This will take his oxygen saturations down into the 70s even with nasal cannula supplementation. Most of the time, he is on 4 or 5 liters of oxygen. He is basically unable to do anything for himself at all. His cough occasionally will bring up a little bit of white foamy mucus. He has not coughed up any blood. The patient does not feel too much better than when he was first admitted. He is now on dabigatran for the pulmonary emboli. He previously had been on heparin. The patient currently is on 50 mg of prednisone per day. He is on the dabigatran as noted. He is getting neb treatments with levalbuterol and ipratropium. Nothing seems to be helping his dyspnea or his severe cough to any significant degree. As noted, the patient was not sure if he had UIP or some other type of pulmonary fibrosis. We do not have any of those records or access to the records. The patient states although his diagnosis was made in 2017, he probably had the underlying lung disease 1 or 2 years earlier based upon his symptoms. He used to play golf several times per week and he used to bowl on a regular basis and he became unable to do either one of those. The patient's occupation was variable. When he was young, he worked in [employer] for about 3 months. 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 The patient has never smoked cigarettes. He previously had smoked cigars and a pipe, but for only a total of about 4 years, he believes. Alcohol use is none. PAST SURGICAL HISTORY: 1. 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 2. Left carotid stent. 3. Right renal stent into the renal artery. PAST MEDICAL HISTORY: 1. Interstitial lung disease. 2. Cerebrovascular disease. 3. Carotid stenosis, chronic kidney disease stage III. 4. Hypertension. 5. Medication induced diabetes mellitus. 6. Obesity. 7. Cirrhosis suggested from CAT scan. 8. History of hiatal hernia. FAMILY HISTORY: The only pertinent family history from a pulmonary perspective is that he had a sister at age 60 of lung disease and he did not know exactly what she had. REVIEW OF SYSTEMS: The patient is weak. His appetite is improved now that he is back on steroids. Previously, it had been decreased. He has not had any bloody bowel movements at this time as far as he knows. He does have a Johnson in place. He denied that he was having difficulty urinating. The remainder of the review of systems is negative. Ten systems reviewed. PHYSICAL EXAMINATION: GENERAL: The patient is a pleasant 77-year-old male who was cooperative, alert and oriented. He was somewhat short of breath during the exam and he coughed regularly. HEENT: Pupils were reactive. Nasal cannula was in place. Mouth exam showed no erythema or exudate. NECK: Palpation of the neck reveals no lymph nodes. He was noted to have some small amount of subconjunctival blood in both eyes. Nursing staff said this is not new. The patient himself seemed unaware of that. CARDIAC: Rate is 67 per minute. The rhythm was regular. Blood pressure is 139/71. LUNGS: Respiratory rate is 24 breaths per minute. Auscultation reveals diffuse rales posteriorly bilaterally, mainly in the lower and mid lung field areas. Saturation at the time of my exam was 89% on 5 liter nasal cannula. However, when I sat the patient forward to auscultate the lungs posteriorly, within seconds, he went down to 79%. ABDOMEN: Somewhat obese. Bowel sounds were present. There was no tenderness to palpation or masses. EXTREMITIES: Showed +1 edema of the lower extremities. There was no cyanosis or clubbing. LABORATORY DATA: The patient had a venous Doppler, showing no evidence of deep vein thrombosis. There was a suspected superficial venous thrombosis in the left popliteal fossa. White count today is 12.57. Hemoglobin 9.1. Platelets are 547,000. At the time of admission, the hemoglobin was 10.7 and the white count was 17.41. He did have an arterial blood gas done on 01/01/2018, showing a pH of 7.48 with a pCO2 of 33 and a pO2 of 109 on 50% oxygen. Electrolytes show sodium 137, potassium 3.9, chloride 106, and bicarbonate 25. BUN was 23 with a creatinine of 0.89. Echocardiogram done on January 02 suggested moderate concentric left ventricular hypertrophy. Ejection fraction was 60%-65%. The right ventricle was mild to moderately dilated. There is mild right ventricular hypertrophy. The right ventricular systolic function is moderately reduced with moderate tricuspid regurgitation. IMPRESSIONS: 1. Acute pulmonary embolism involving right lower lobe. 2. Pulmonary fibrosis -- progressive. 3. Mild mediastinal and right hilar adenopathy. 4. Intractable cough likely secondary to the fibrosis. COMMENTS AND RECOMMENDATIONS: I believe of all of the patient's illnesses, the pulmonary fibrosis is likely the most severe. This appears to be progressive based upon a historic basis. He is now approaching the 2 and 3-year intervals. He is now almost unable to ambulate at all. I believe maintaining his oxygenations will be a challenge. He is supposed to go to a rehab. It is not clear at all that he will be able to return to his home. He is on dabigatran for now. Assuming he stays quite inactive, this may need to be a technician terminal and repeater unless he has complications. As noted, he recently had the GI bleeding. I would suggest trying to give him some cough suppression. We will try Tessalon Perles and see if this suppresses his cough somewhat, so that he is more comfortable. I believe the prednisone should be tapered probably 10 mg every week or two. Unfortunately, I believe his prognosis is poor. We will need to try and support his oxygen with whatever it takes. Thank you for asking me to assist in his care. YVONNE
[2018-01-06] MEDS: BENZONATATE 100MG CAP PO SCH ×2 (12:59→21:00)
[2018-01-07] VITALS (16 sets, daily range): BP systolic 134–158; BP diastolic 66–93; PULSE 64–97; TEMP 36.5–36.8; O2SAT 84–99
[2018-01-07] MEDS: IPRATROPIUM BROMIDE NEB SOLN 0.02% 2.5 ML VIAL INH SCH ×6 (03:19→23:07)
[2018-01-07] MEDS: LEVALBUTEROL 1.25MG/0.5ML NEB INH SCH ×6 (03:19→23:07)
[2018-01-07 06:47] LABS: HEMATOCRIT 28.2 % (42-52); HEMOGLOBIN 9.3 g/dL (14.0-18.0); MEAN CELL VOLUME 101.4 fL (80-100); MEAN CORPUSCULAR HEMOGLOBIN 33.5 pg (25-34); MEAN PLATELET VOLUME 9.3 fL (7.4-10.4); NUCLEATED RED BLOOD CELL ABS 0.36 K/uL (0-0); PLATELET COUNT 534 K/uL (130-400); RED CELL DISTRIBUTION WIDTH CV 18.5 % (11.5-14.5); RED CELL DISTRIBUTION WIDTH SD 67.6 fL (36.4-46.3)
[2018-01-07 07:18] LABS: CALCIUM 7.9 mg/dl (8.5-10.1); CREATININE 0.85 mg/dl (0.60-1.40); POTASSIUM 3.7 mmol/L (3.5-5.1)
[2018-01-07] MEDS: DABIGATRAN ELEXILATE 75 MG CAP PO SCH ×2 (08:24→21:01)
[2018-01-07] MEDS: CARVEDILOL 12.5 MG TAB PO SCH ×2 (08:25→21:01)
[2018-01-07] MEDS: PANTOprazole SOD 40 MG TAB PO SCH (08:25)
[2018-01-07] MEDS: PRAVASTATIN SOD 40 MG TAB PO SCH (08:25)
[2018-01-07] MEDS: BENZONATATE 100MG CAP PO SCH ×3 (08:25→21:01)
[2018-01-07] MEDS: INSULIN HUMAN NPH SC SCH (08:30)
[2018-01-07] MEDS: INSULIN ASPART 100 UNITS/ML 3 ML PEN SC SCH ×4 (08:32→21:05)
[2018-01-07] MEDS ORDERED: MoRPHine SULFATE 2 MG/ML CARP IV PRN (10:00)
--- NOTE | 2018-01-07 10:21 | PULMONARY PROGRESS NOTE ---
DATE: 01/07/2018 TIME: 10:00 a.m. SUBJECTIVE: The patient remains very short of breath with any exertion at all. At rest, he is reasonably comfortable and maintains a good saturation. Even with physical therapy, assisting with getting him out of bed yesterday, his sats went down into the 60s. The patient has been requesting to have both the nasal cannula and OxyMask on when he gets ready to be moved. He just gets the feeling that he cannot breathe. He continues to cough fairly severely. It is nonproductive. OBJECTIVE: GENERAL: The patient appeared comfortable at rest, but he was totally at bed rest and not moving. Temperature is 36.5. ENT: Exam is unchanged. VITAL SIGNS: Heart rate is 72 per minute. The rhythm is regular. Blood pressure 154/84. LUNGS: Auscultation of the lung good reveals diffuse rales bilaterally. Respiratory rate at rest is 20 breaths per minute. Saturation at rest was 90% on 5 liters nasal cannula. ABDOMEN: Mildly obese. It was soft. EXTREMITIES: Showed no cyanosis, clubbing or edema. LABORATORY DATA: White count today is 15.90. Hemoglobin is 9.3. Platelets 534,000. Electrolytes show sodium 137, potassium 3.7, chloride 105, bicarbonate 27. BUN is 23 with a creatinine of 0.85. IMPRESSIONS: 1. Acute pulmonary embolism, right lower lobe. 2. Progressive pulmonary fibrosis. 3. Intractable cough. 4. Mild mediastinal and right hilar adenopathy. COMMENTS: The patient is doing poorly. He has no pulmonary reserve. I am more suspicious that this is primarily related to his interstitial disease rather than the acute pulmonary emboli. Case was discussed with Dr. Duarte. Obviously, we are looking at comfort care for this patient. I would suggest a trial of morphine 2 or 3 mg IV to be given, perhaps 3-5 minutes before they move the patient. This would be an attempt to see if it would provide him some comfort when he is moving just a bit. Ultimately, if that were helpful and the patient goes to a facility, he might be able to get Roxanol in a similar fashion. Hospice care could be considered. I agree with his other medications.
[2018-01-07] MEDS ORDERED: GUAIFENESIN 600 MG TABCR PO ONE (10:30)
--- NOTE | 2018-01-07 11:37 | Cardiology Follow-Up ---
Subjective General Date of Service: Jan 07, 2018. Chief Complaint: SOB Pt evaluation today including: conversation w/ patient, physical exam, chart review, lab review, review of studies, conversation w/ reporting process consultant, review of inpatient medication list History of Present Illness Patient feeling poorly this AM. Worsening SOB noted this AM with hypoxia. Symptoms improved with oxymask but when transitioned back to NC, saturations in the upper 70's. He notes ongoing cough with significant dyspnea. No chest pain. Palliative care consult placed by hospitalist. Allergies Coded Allergies: Penicillins (Verified Allergy, Unknown, BLISTERS, 01/01/18) Social History Smoking Status: Never Smoker Hx Tobacco Use In Past Year?: No Hx Alcohol Use - Type And Amou: No Hx Substance Use - Type And Am: No Problem List Medical Problems: (1) Acute respiratory failure with hypoxia Status: Acute (2) Chronic hypoxemic respiratory failure Status: Chronic (3) CKD (chronic kidney disease), stage III Status: Chronic (4) Fibrotic lung diseases Status: Acute (5) Hypertension Status: Chronic (6) Hypoxia Status: Acute (7) ILD (interstitial lung disease) Status: Chronic (8) Pulmonary embolism Status: Acute (9) Steroid-induced diabetes mellitus Status: Chronic Review of Systems Respiratory: + cough, + shortness of breath, + dyspnea at rest, No sputum, No wheezing, No hemoptysis Cardiac: + edema, No chest pain, No orthopnea, No PND, No palpitations Physical Exam Vital Signs Last Vital Signs Documentation Date Time Temp Pulse Resp B/P (MAP) Pulse Ox O2 Delivery O2 Flow Rate FiO2 01/07/18 11:16 88 18 95 Nasal Cannula 5.0 01/07/18 07:44 36.5 154/84 (107) 01/03/18 08:00 40 Physical Exam Constitutional: Level of Distress: mild distress, acutely ill, chronically ill Psychiatric: Mental Status: active & alert Orientation: to time, to place, to person Head: normocephalic Eyes: Pupils: PERRLA Neck: supple Lungs: Respiratory effort: dyspneic, tachypneic Auscultation: decreased breath sounds, dry rales/crackles Cardiovascular: Heart Auscultation: RRR, no murmurs Abdomen: Bowel Sounds: normal Inspection & Palpation: soft, non-distended Extremities: edema (trace ankle edema) Assessment and Plan Assessment and Plan IMPRESSION: Complex 77-year-old male 1. acute pulmonary embolus - anticoagulated with Pradaxa. 2. Acute on chronic respiratory failure with hypoxia secondary to underling interstitial lung disease. 3. NSTEMI secondary to respiratory distress/hypoxia. Preserved LV function on echo. 4. Anemia - monitor closely RECOMMENDATIONS: Continue anticoagulation wiht Pradaxa. Continue supplemental O2. Continue beta gallo and statin for possibly underlying CAD. Unfortunately patient has developed worsening of his respiratory status, failure to improve. Poor prognosis. Pulm consult noted. Agree with palliative care consult. Discussed with Dr. Nur. Will sign off. Please notify buckle and button maker physician with additional cardiac questions /concerns. Patient fully assessed plan as outlined above. Wilfredo Nur MD Laboratory Results Last 24 Hours Test 01/06/18 16:23 01/06/18 20:20 01/07/18 06:24 01/07/18 06:47 Bedside Glucose 93 mg/dl 160 mg/dl 100 mg/dl White Blood Count 15.90 K/uL Red Blood Count 2.78 M/uL Hemoglobin 9.3 g/dL Hematocrit 28.2 % Mean Corpuscular Volume 101.4 fL Mean Corpuscular Hemoglobin 33.5 pg Mean Corpuscular Hemoglobin Concent 33.0 g/dl RDW Standard Deviation 67.6 fL RDW Coefficient of Variation 18.5 % Platelet Count 534 K/uL Mean Platelet Volume 9.3 fL Nucleated RBC Absolute Count (auto) 0.36 K/uL Nucleated Red Blood Cells % 2.3 % Sodium Level 137 mmol/L Potassium Level 3.7 mmol/L Chloride Level 105 mmol/L Carbon Dioxide Level 27 mmol/L Anion Gap 5.0 mmol/L Blood Urea Nitrogen 23 mg/dl Creatinine 0.85 mg/dl Est Creatinine Clear Calc Drug Dose 65.6 ml/min Estimated GFR () 96.1 Estimated GFR (Non- 82.9 BUN/Creatinine Ratio 26.7 Random Glucose 103 mg/dl Calcium Level 7.9 mg/dl
--- NOTE | 2018-01-07 12:42 | Pharmacy Progress Note ---
Pharmacy Glycemic Short Note 2 Date of Service Jan 07, 2018. OUTPATIENT ANTIDIABETIC REGIMEN: * Novolog per sliding scale * A1c reduced from last admission just a few days ago, which was 10% on 12/27/17 ASSESSMENT: * Mr Pelaez is a 77 y/o M with a PMH of pulmonary fibrosis, CHF, CKD, and uncontrolled type 2 diabetes who presented with bilateral PEs. This is the second day of prednisone 50 mg. * Yesterday, Mr Pelaez's blood sugars were [phone] mg/dL. Fasting today is 100 mg/dL compared to 138 mg/dL yesterday. The patient received 59 units of insulin of which 39 units were basal insulin. The patient had a lower blood sugar at lunch but was asymptomatic. Moved NPH to lunch as it appears that patient may sufficiently correct during the day but the prednisone spikes at bedtime. Reduced by physician today so will evaluate tomorrow. * Loosened Novolog to weight-based stress of 2 dosing with addition of NPH. PLAN FOR INPATIENT GLYCEMIC CONTROL: * Basal insulin * NPH 20 units SQ with lunch * Correctional Insulin with NOVOLOG per scale ACHS or Q6hrs while NPO LOOSEN SLIGHTLY * Goal Range: Low 110 mg/dL - High 140 mg/dL * Correction Factor: 30 mg/dL/unit * Nutritional / Prandial insulin per carb ratio of 1 unit per 15 grams CHO consumed PLAN FOR DISCHARGE: * A1c improved significantly from earlier in the month * Continue sliding scale Novolog with close monitoring of BSGs - if steroid- related, may only require this when taking steroids?
--- NOTE | 2018-01-07 16:00 | Progress Note ---
Subjective Date of Service: Jan 07, 2018. Subjective Pt evaluation today including: conversation w/ patient, physical exam, lab review, review of studies, review of inpatient medication list Saw/examined the patient in room 207 Continues to be hypoxic with any type of movements or exertion He feels short of breath during this time He received morphine with shortness of breath and states that it helped a little They have used oxygen via nasal cannula and an oxymask over that when he becomes hypoxic. Problem List Medical Problems: (1) Acute respiratory failure with hypoxia Status: Acute (2) Chronic hypoxemic respiratory failure Status: Chronic (3) CKD (chronic kidney disease), stage III Status: Chronic (4) Fibrotic lung diseases Status: Acute (5) Hypertension Status: Chronic (6) Hypoxia Status: Acute (7) ILD (interstitial lung disease) Status: Chronic (8) Pulmonary embolism Status: Acute (9) Steroid-induced diabetes mellitus Status: Chronic Review of Systems Constitutional: No fever, No chills Objective Vital Signs Date Time Temp Pulse Resp B/P (MAP) Pulse Ox O2 Delivery O2 Flow Rate FiO2 01/07/18 14:26 71 18 93 Nasal Cannula 5.0 01/07/18 12:00 91 Nasal Cannula 5.0 01/07/18 11:57 36.5 64 16 135/66 (89) 99 Nasal Cannula 01/07/18 11:16 88 18 95 Nasal Cannula 5.0 01/07/18 08:00 91 Nasal Cannula 5.0 01/07/18 07:44 36.5 72 18 154/84 (107) 97 Nasal Cannula 5.0 01/07/18 07:10 70 18 96 Nasal Cannula 5.0 01/07/18 05:55 36.8 75 27 137/81 (99) 93 Nasal Cannula 5.0 01/07/18 04:00 Nasal Cannula 5.0 Humidified Oxygen 01/07/18 03:20 83 22 95 Nasal Cannula 5.0 01/07/18 00:03 36.5 80 24 149/75 (99) 97 Nasal Cannula 6.0 01/07/18 00:00 Nasal Cannula 6.0 01/06/18 23:08 79 22 90 Nasal Cannula 6.0 01/06/18 22:40 91 20 96 Nasal Cannula 6.0 01/06/18 15:58 36.3 71 20 141/88 (105) 94 Nasal Cannula 6.0 Physical Exam General Appearance: + moderate distress, + pertinent finding (chronically ill) Respiratory/Chest: + respiratory distress, + decreased breath sounds, + accessory muscle use Cardiovascular: regular rate, rhythm, no edema, no murmur Extremities: normal inspection, no pedal edema Neurologic/Psychiatric: no motor/sensory deficits, alert, normal mood/affect Skin: normal color Lymphatic: no adenopathy Laboratory Results Last 24 Hours Test 01/06/18 16:23 01/06/18 20:20 01/07/18 06:24 01/07/18 06:47 Bedside Glucose 93 mg/dl 160 mg/dl 100 mg/dl White Blood Count 15.90 K/uL Red Blood Count 2.78 M/uL Hemoglobin 9.3 g/dL Hematocrit 28.2 % Mean Corpuscular Volume 101.4 fL Mean Corpuscular Hemoglobin 33.5 pg Mean Corpuscular Hemoglobin Concent 33.0 g/dl RDW Standard Deviation 67.6 fL RDW Coefficient of Variation 18.5 % Platelet Count 534 K/uL Mean Platelet Volume 9.3 fL Nucleated RBC Absolute Count (auto) 0.36 K/uL Nucleated Red Blood Cells % 2.3 % Sodium Level 137 mmol/L Potassium Level 3.7 mmol/L Chloride Level 105 mmol/L Carbon Dioxide Level 27 mmol/L Anion Gap 5.0 mmol/L Blood Urea Nitrogen 23 mg/dl Creatinine 0.85 mg/dl Est Creatinine Clear Calc Drug Dose 65.6 ml/min Estimated GFR () 96.1 Estimated GFR (Non- 82.9 BUN/Creatinine Ratio 26.7 Random Glucose 103 mg/dl Calcium Level 7.9 mg/dl Test 01/07/18 11:21 01/07/18 11:53 01/07/18 13:56 Bedside Glucose 69 mg/dl 67 mg/dl 138 mg/dl Assessment and Plan This is a 77 year old male with a PMH of interstitial lung disease and pulmonary fibrosis with chronic respiratory failure on 3L of continuous O2, CKD stage 3, HTN, HLD, hx. of CVA - presents with worsening shortness of breath and subsequently found to have acute R lower lobe pulmonary embolism Acute on Chronic Hypoxic Respiratory Failure Acute Pulmonary Embolism Pulmonary Fibrosis/Interstitial Lung Disease 01/07 - currently on prednisone for pulmonary fibrosis - Pradaxa for pulmonary embolism - still desaturates with any type of exertion - will now try morphine for palliation of SOB - palliative care consulted - patient should be on hospice 01/06 - currently requiring 6L of O2 at baseline - abx. stopped - continue Pradaxa - change Solu-medrol to prednisone 01/05 - chronically uses around 3L of O2 at home; sometimes uses 4L - currently he is requiring 6L via NC - intermittently requiring bipap - started on Pradaxa for PE, which we can continue; now off of the heparin drip - outpatient pulmonary input needed - follows with pulmonology in [facility] - doubt pneumonia - will stop Imipenem - continue IV steroids for now, transition to PO in 1-2 days - nebulizers as needed NSTEMI - elevated troponin, peaked >2 - likely due to heart strain from the pulmonary embolism - preserved LVEF - was on IV heparin, now off of it - aspirin held due to Pradaxa started - continue b-gallo (Coreg) and statin Recent GI bleed - recent admission with possible acute diverticular bleed - now started on Pradaxa to treat the PE - monitor H/H close and monitor for any GI bleeding CKD stage III - creat at baseline Hyperglycemia secondary to Steroid Use - insulin sliding scale - Lantus changed around today; appreciate glycemic control pharmacist HTN - continue Coreg - stop clonidine on discharge DVT ppx - Pradaxa DNR
--- NOTE | 2018-01-07 17:59 | Palliative Care Consultation ---
Consultation Date of Consultation: Jan 07, 2018. Requesting Physician: Dr Duarte Attending Physician: Dr Duarte Reason for Consultation: Determine goals of care, complete POLST form History of Present Illness Patient is very aware that he has had end-of-life due to his multiple medical issues, patient is not sure that his or family are aware of his condition. Patient did state he wanted to go under hospice care when appropriate and be kept comfortable. Patient is a 77-year-old male who was recently hospitalized here at [facility] for GI bleed he was discharged home on 12/28. At home patient continued to be weak, shortness of breath with minimal exertion, his O2 was increased to 6 L nasal cannula. Patient presented to the emergency room with hypoxia with sats of 66% on 4 L nasal cannula. Patient was placed on BiPAP and further workup revealed bilateral pulmonary emboli. Past medical history is significant for CHF, chronic respiratory or failure/ pulmonary fibrosis, chronic kidney disease stage III, cerebrovascular disease, carotid disease, renal artery stenosis, hypertension. Patient did receive 1 dose of IV morphine at 2 mg.Patient reported it did relieve his shortness of breath and only cause slight drowsiness. Patient is planned to be transferred to a facility tomorrow, [address] form completed and signed by patient. Patient wishes to be a DNR and be kept comfortable. I offered to speak with patient's , he declined, he stated he would be calling her likely within an hour. Patient lives with his , they have 5 living sons, one at age 50 of an VT, 4 of them live locally one lives in [place]. Past Medical/Surgical History Medical History: GI bleed, CHF, chronic respiratory failure, pulmonary fibrosis, chronic kidney disease stage III, cerebrovascular disease, carotid disease, renal artery stenosis, hypertension Family History Positive for heart disease Social History Smoking Status: Never Smoker History of Alcohol Use: No Drug Use: none Marital Status: Housing Status: lives with significant other Occupation Status: retired Had 6 sons, 5 living, 4 live locally, one in [place]. Review of Systems Constitutional: No fever, No chills Eyes: No worsening of vision ENT: No hearing loss Respiratory: + shortness of breath, + dyspnea on exertion Cardiac: + edema (Left upper extremity due to IV), No chest pain Abdomen: No pain, No nausea Male : + problem reported (Johnson in place) Neurologic: + weakness, No memory loss Psychiatric: + problem reported (Appropriate), No depression symptoms Endo: + fatigue Allergies Coded Allergies: Penicillins (Verified Allergy, Unknown, BLISTERS, 01/01/18) Medications Current Inpatient Medications Medications (Trade) Dose Ordered Sig/Aure Route Start Time Stop Time Status Last Admin Dose Admin Levalbuterol (Xopenex 1.25MG/ 0.5ML Neb) 1.25 mg Q4R INH 01/02/18 00:00 02/01/18 00:00 01/07/18 14:26 1.25 MG Ipratropium Ransom (Atrovent 0.02% 0.5MG/2.5ML Neb) 0.5 mg Q4R INH 01/02/18 00:00 02/01/18 00:00 01/07/18 14:26 0.5 MG Nitroglycerin (Nitrostat Tab) 0.4 mg UD PRN SL 01/01/18 20:00 01/31/18 19:59 Ondansetron HCl (Zofran Inj) 4 mg Q6H PRN IV 01/01/18 20:00 01/31/18 19:59 Carvedilol (Coreg Tab) 12.5 mg BID PO 01/02/18 09:00 02/01/18 08:59 01/07/18 08:25 12.5 MG Pravastatin Sodium (Pravachol Tab) 80 mg DAILY PO 01/02/18 09:00 02/01/18 08:59 01/07/18 08:25 80 MG Glucose (Glucose 40% Gel) 15-30 GRAMS 15 GRAMS... UD PRN PO 01/01/18 20:00 01/31/18 19:59 Glucose (Glucose Chew Tab) 4-8 Tablets 4 Tabl... UD PRN PO 01/01/18 20:00 01/31/18 19:59 Dextrose (Dextrose 50% 50ML Syringe) 25-50ML OF 50% DW IV FOR... UD PRN IV 01/01/18 20:00 01/31/18 19:59 Glucagon (Glucagon Inj) 1 mg UD PRN SQ 01/01/18 20:00 01/31/18 19:59 Miscellaneous Information (Consult Glycemic Management Pharmacy) 1 ea UD PRN N/A 01/01/18 20:15 01/31/18 20:14 Insulin Aspart (novoLOG ASPART) SLIDING SCALE ACHS SC 01/02/18 11:00 02/01/18 07:29 01/07/18 17:36 4 UNITS Dabigatran (Pradaxa Cap) 150 mg BID PO 01/03/18 21:00 02/02/18 20:59 01/07/18 08:24 150 MG Pantoprazole Sodium (Protonix Tab) 40 mg QAM PO 01/05/18 09:00 02/04/18 08:59 01/07/18 08:25 40 MG Prednisone (PredniSONE TAB) 50 mg DAILY PO 01/06/18 10:30 02/05/18 10:29 01/07/18 09:50 50 MG Benzonatate (Tessalon Perles Cap) 200 mg TID PO 01/06/18 14:00 02/05/18 13:59 01/07/18 13:54 200 MG Morphine Sulfate (MoRPHine SULFATE INJ) 2 mg Q2HWA PRN IV 01/07/18 10:00 01/21/18 09:59 01/07/18 10:16 2 MG Insulin Human NPH (novoLIN-N NPH) 20 units QDL SC 01/08/18 11:30 02/07/18 11:29 Physical Exam Date Time Temp Pulse Resp B/P (MAP) Pulse Ox O2 Delivery O2 Flow Rate FiO2 01/07/18 16:15 36.6 94 24 134/93 (107) 84 Ambu-Bag 5.0 01/07/18 14:26 71 18 93 Nasal Cannula 5.0 01/07/18 12:00 91 Nasal Cannula 5.0 01/07/18 11:57 36.5 64 16 135/66 (89) 99 Nasal Cannula 01/07/18 11:16 88 18 95 Nasal Cannula 5.0 01/07/18 08:00 91 Nasal Cannula 5.0 01/07/18 07:44 36.5 72 18 154/84 (107) 97 Nasal Cannula 5.0 01/07/18 07:10 70 18 96 Nasal Cannula 5.0 01/07/18 05:55 36.8 75 27 137/81 (99) 93 Nasal Cannula 5.0 01/07/18 04:00 Nasal Cannula 5.0 Humidified Oxygen 01/07/18 03:20 83 22 95 Nasal Cannula 5.0 01/07/18 00:03 36.5 80 24 149/75 (99) 97 Nasal Cannula 6.0 01/07/18 00:00 Nasal Cannula 6.0 01/06/18 23:08 79 22 90 Nasal Cannula 6.0 01/06/18 22:40 91 20 96 Nasal Cannula 6.0 General Appearance: no apparent distress (Mild shortness of breath with speech) Eyes: EOMI ENT: hearing grossly normal Neck: supple Respiratory: + decreased breath sounds Cardiovascular: regular rate, rhythm, no edema (No pedal edema) Abdomen: soft Musculoskeletal: normal tone Neurologic/Psychiatric: alert, oriented x 3 Skin: warm/dry Laboratory Results Last 24 Hours Test 01/06/18 20:20 01/07/18 06:24 01/07/18 06:47 01/07/18 11:21 Bedside Glucose 160 mg/dl 100 mg/dl 69 mg/dl White Blood Count 15.90 K/uL Red Blood Count 2.78 M/uL Hemoglobin 9.3 g/dL Hematocrit 28.2 % Mean Corpuscular Volume 101.4 fL Mean Corpuscular Hemoglobin 33.5 pg Mean Corpuscular Hemoglobin Concent 33.0 g/dl RDW Standard Deviation 67.6 fL RDW Coefficient of Variation 18.5 % Platelet Count 534 K/uL Mean Platelet Volume 9.3 fL Nucleated RBC Absolute Count (auto) 0.36 K/uL Nucleated Red Blood Cells % 2.3 % Sodium Level 137 mmol/L Potassium Level 3.7 mmol/L Chloride Level 105 mmol/L Carbon Dioxide Level 27 mmol/L Anion Gap 5.0 mmol/L Blood Urea Nitrogen 23 mg/dl Creatinine 0.85 mg/dl Est Creatinine Clear Calc Drug Dose 65.6 ml/min Estimated GFR () 96.1 Estimated GFR (Non- 82.9 BUN/Creatinine Ratio 26.7 Random Glucose 103 mg/dl Calcium Level 7.9 mg/dl Test 01/07/18 11:53 01/07/18 13:56 01/07/18 16:13 Bedside Glucose 67 mg/dl 138 mg/dl 167 mg/dl Assessment & Plan Palliative Performance Scale: 40 % (1) Dyspnea, unspecified Status: Acute Assessment & Plan: Patient comfortable on current O2, increased shortness of breath relieved with as needed IV morphine With transition to p.o./sublingual liquid morphine, which started 5 mg every 2 hours as needed and titrate as needed (2) Palliative care encounter Status: Acute Assessment & Plan: Goals of care and wishes discussed with patient, POLST form filled out and signed by patient. (3) Acute respiratory failure with hypoxia Status: Acute Assessment & Plan: Patient with bilateral PEs, patient on Pradaxa (4) Fibrotic lung diseases Status: Chronic Assessment & Plan: 02 to keep sats at a level that maintains cognitive function (5) Pulmonary embolism Status: Acute Assessment & Plan: On Pradaxa Patient is to be transferred to a facility, with comfort as a goal Counseling and Coordination Total time 55 minutes, with greater than 50% of the time spent with patient discussing goals of care and completing POLST form
[2018-01-08] VITALS (8 sets, daily range): BP systolic 136–175; BP diastolic 78–93; PULSE 71–86; TEMP 36.5–36.6; O2SAT 91–99
[2018-01-08] MEDS: MoRPHine SULFATE 5 MG/0.25 ML UDP PO PRN ×2 (02:15→15:03)
[2018-01-08] MEDS: LEVALBUTEROL 1.25MG/0.5ML NEB INH SCH ×4 (03:13→14:39)
[2018-01-08] MEDS: IPRATROPIUM BROMIDE NEB SOLN 0.02% 2.5 ML VIAL INH SCH ×4 (03:13→14:39)
[2018-01-08] MEDS: INSULIN ASPART 100 UNITS/ML 3 ML PEN SC SCH ×2 (08:20→11:33)
[2018-01-08] MEDS: DABIGATRAN ELEXILATE 75 MG CAP PO SCH (08:37)
[2018-01-08] MEDS: BENZONATATE 100MG CAP PO SCH ×2 (08:38→12:27)
[2018-01-08] MEDS: CARVEDILOL 12.5 MG TAB PO SCH (08:38)
[2018-01-08] MEDS: PANTOprazole SOD 40 MG TAB PO SCH (08:38)
[2018-01-08] MEDS: PRAVASTATIN SOD 40 MG TAB PO SCH (08:39)
--- NOTE | 2018-01-08 09:09 | Progress Note ---
Subjective Date of Service: Jan 08, 2018. Subjective Pt evaluation today including: conversation w/ patient, physical exam, lab review, review of studies, review of inpatient medication list Saw/examined the patient in room 207 Laying in bed on 5L of O2 via nasal cannula When I first walked in, O2 sats were 94% when talking, he dipped to around 88% States that the sublingual morphine has been helping Problem List Medical Problems: (1) Acute respiratory failure with hypoxia Status: Acute (2) Chronic hypoxemic respiratory failure Status: Chronic (3) CKD (chronic kidney disease), stage III Status: Chronic (4) Fibrotic lung diseases Status: Chronic (5) Hypertension Status: Chronic (6) Hypoxia Status: Acute (7) ILD (interstitial lung disease) Status: Chronic (8) Pulmonary embolism Status: Acute (9) Steroid-induced diabetes mellitus Status: Chronic Review of Systems Respiratory: + shortness of breath, + dyspnea on exertion, + dyspnea at rest, No cough Cardiac: No chest pain, No edema, No palpitations Medications Current Inpatient Medications Medications (Trade) Dose Ordered Sig/Aure Route Start Time Stop Time Status Last Admin Dose Admin Levalbuterol (Xopenex 1.25MG/ 0.5ML Neb) 1.25 mg Q4R INH 01/02/18 00:00 02/01/18 00:00 01/08/18 07:01 1.25 MG Ipratropium [place] (Atrovent 0.02% 0.5MG/2.5ML Neb) 0.5 mg Q4R INH 01/02/18 00:00 02/01/18 00:00 01/08/18 07:01 0.5 MG Nitroglycerin (Nitrostat Tab) 0.4 mg UD PRN SL 01/01/18 20:00 01/31/18 19:59 Ondansetron HCl (Zofran Inj) 4 mg Q6H PRN IV 01/01/18 20:00 01/31/18 19:59 Carvedilol (Coreg Tab) 12.5 mg BID PO 01/02/18 09:00 02/01/18 08:59 01/08/18 08:38 12.5 MG Pravastatin Sodium (Pravachol Tab) 80 mg DAILY PO 01/02/18 09:00 02/01/18 08:59 01/08/18 08:39 80 MG Glucose (Glucose 40% Gel) 15-30 GRAMS 15 GRAMS... UD PRN PO 01/01/18 20:00 01/31/18 19:59 Glucose (Glucose Chew Tab) 4-8 Tablets 4 Tabl... UD PRN PO 01/01/18 20:00 01/31/18 19:59 Dextrose (Dextrose 50% 50ML Syringe) 25-50ML OF 50% DW IV FOR... UD PRN IV 01/01/18 20:00 01/31/18 19:59 Glucagon (Glucagon Inj) 1 mg UD PRN SQ 01/01/18 20:00 01/31/18 19:59 Miscellaneous Information (Consult Glycemic Management Pharmacy) 1 ea UD PRN N/A 01/01/18 20:15 01/31/18 20:14 Insulin Aspart (novoLOG ASPART) SLIDING SCALE ACHS SC 01/02/18 11:00 02/01/18 07:29 01/07/18 21:05 4 UNITS Dabigatran (Pradaxa Cap) 150 mg BID PO 01/03/18 21:00 02/02/18 20:59 01/08/18 08:37 150 MG Pantoprazole Sodium (Protonix Tab) 40 mg QAM PO 01/05/18 09:00 02/04/18 08:59 01/08/18 08:38 40 MG Prednisone (PredniSONE TAB) 50 mg DAILY PO 01/06/18 10:30 02/05/18 10:29 01/08/18 08:39 50 MG Benzonatate (Tessalon Perles Cap) 200 mg TID PO 01/06/18 14:00 02/05/18 13:59 01/08/18 08:38 200 MG Morphine Sulfate (Roxanol Oral Soln) 5 mg Q4 PRN PO 01/07/18 18:15 01/21/18 18:14 01/08/18 02:15 5 MG Insulin Human NPH (novoLIN-N NPH) 25 units QDL SC 01/08/18 11:30 02/07/18 11:29 Objective Vital Signs Date Time Temp Pulse Resp B/P (MAP) Pulse Ox O2 Delivery O2 Flow Rate FiO2 01/08/18 07:56 36.5 76 20 164/93 (116) 99 01/08/18 07:02 71 20 96 Nasal Cannula 5.0 01/08/18 04:22 36.6 83 18 175/86 (115) 95 Nasal Cannula 6.0 01/08/18 04:00 Nasal Cannula 6.0 Humidified Oxygen 01/08/18 03:14 81 20 96 Nasal Cannula 6.0 01/08/18 00:19 36.5 86 20 136/78 (97) 94 Nasal Cannula 6.0 01/08/18 00:01 Nasal Cannula 6.0 01/07/18 23:09 83 18 92 Nasal Cannula 6.0 01/07/18 20:17 36.5 89 20 158/89 (112) 95 Oxymask 7.0 01/07/18 20:00 92 Nasal Cannula 6.0 01/07/18 18:56 97 31 90 Mask 7.0 01/07/18 16:15 36.6 94 24 134/93 (107) 84 Nasal Cannula 5.0 01/07/18 16:00 91 Nasal Cannula 5.0 01/07/18 14:26 71 18 93 Nasal Cannula 5.0 01/07/18 12:00 91 Nasal Cannula 5.0 01/07/18 11:57 36.5 64 16 135/66 (89) 99 Nasal Cannula 01/07/18 11:16 88 18 95 Nasal Cannula 5.0 Physical Exam General Appearance: no apparent distress, + pertinent finding (chronic respiratory failure; chronically ill) Respiratory/Chest: + decreased breath sounds, + accessory muscle use Cardiovascular: regular rate, rhythm, no edema, no murmur Extremities: normal inspection, no pedal edema Neurologic/Psychiatric: no motor/sensory deficits, alert, normal mood/affect Laboratory Results Last 24 Hours Test 01/07/18 11:21 01/07/18 11:53 01/07/18 13:56 01/07/18 16:13 Bedside Glucose 69 mg/dl 67 mg/dl 138 mg/dl 167 mg/dl Test 01/07/18 20:20 01/08/18 06:42 Bedside Glucose 228 mg/dl 89 mg/dl Assessment and Plan This is a 77 year old male with a PMH of interstitial lung disease and pulmonary fibrosis with chronic respiratory failure on 3L of continuous O2, CKD stage 3, HTN, HLD, hx. of CVA - presents with worsening shortness of breath and subsequently found to have acute R lower lobe pulmonary embolism Acute on Chronic Hypoxic Respiratory Failure Acute Pulmonary Embolism Pulmonary Fibrosis/Interstitial Lung Disease 01/08 - chronically respiratory failure - becomes very hypoxic at almost all times - appreciate palliative care consultation - will d/c to SNF and then transition to hospice as soon as possible - will d/c with SL Roxanol 01/07 - currently on prednisone for pulmonary fibrosis - Pradaxa for pulmonary embolism - still desaturates with any type of exertion - will now try morphine for palliation of SOB - palliative care consulted - patient should be on hospice 01/06 - currently requiring 6L of O2 at baseline - abx. stopped - continue Pradaxa - change Solu-medrol to prednisone 01/05 - chronically uses around 3L of O2 at home; sometimes uses 4L - currently he is requiring 6L via NC - intermittently requiring bipap - started on Pradaxa for PE, which we can continue; now off of the heparin drip - outpatient pulmonary input needed - follows with pulmonology in [facility] - doubt pneumonia - will stop Imipenem - continue IV steroids for now, transition to PO in 1-2 days - nebulizers as needed NSTEMI - elevated troponin, peaked >2 - likely due to heart strain from the pulmonary embolism - preserved LVEF - was on IV heparin, now off of it - aspirin held due to Pradaxa started - continue b-gallo (Coreg) and statin Recent GI bleed - recent admission with possible acute diverticular bleed - now started on Pradaxa to treat the PE - monitor H/H close and monitor for any GI bleeding CKD stage III - creat at baseline Hyperglycemia secondary to Steroid Use - insulin sliding scale - Lantus changed around today; appreciate glycemic control pharmacist HTN - continue Coreg - stop clonidine on discharge DVT ppx - Pradaxa DNR
[2018-01-08] MEDS ORDERED: RXNS10 PO (09:16)
[2018-01-08] MEDS ORDERED: XPNINS1255 INH (09:16)
[2018-01-08] MEDS ORDERED: PRD50 PO (09:16)
[2018-01-08] MEDS ORDERED: BENZ100C7 PO (09:16)
[2018-01-08] MEDS ORDERED: ATRINS INH (09:16)
[2018-01-08] MEDS ORDERED: DABI150C3 PO (09:16)
--- NOTE | 2018-01-08 09:25 | Pharmacy Progress Note ---
Pharmacy Glycemic Short Note 2 Date of Service Jan 08, 2018. OUTPATIENT ANTIDIABETIC REGIMEN: * Novolog per sliding scale * A1c reduced from last admission just a few days ago, which was 10% on 12/27/17 ASSESSMENT: * Mr Pelaez is a 77 y/o M with a PMH of pulmonary fibrosis, CHF, CKD, and uncontrolled type 2 diabetes who presented with bilateral PEs. This is the third day of prednisone 50 mg. * Yesterday, Mr Pelaez's blood sugars were 100-67- 167-228 mg/dL. Fasting today is 89 mg/dL compared to 100 mg/dL yesterday. The patient received 39 units of insulin of which 30 units were basal insulin. Due to the spikes yesterday in the evening, it appears that the NPH was not effective in the evening. Continue NPH at lunchtime. Increased to 25 units (0.3 units/kg) as the patient did have very elevated blood sugars yesterday. * Loosened Novolog to weight-based stress of 2 dosing with addition of NPH. PLAN FOR INPATIENT GLYCEMIC CONTROL: * Basal insulin * NPH 25 units SQ with lunch * Correctional Insulin with NOVOLOG per scale ACHS or Q6hrs while NPO LOOSEN SLIGHTLY * Goal Range: Low 110 mg/dL - High 140 mg/dL * Correction Factor: 30 mg/dL/unit * Nutritional / Prandial insulin per carb ratio of 1 unit per 10 grams CHO consumed PLAN FOR DISCHARGE: * A1c improved significantly from earlier in the month * Consider once daily NPH at lunch with oral steroids.
--- NOTE | 2018-01-08 09:36 | Discharge Instructions ---
Discharge Instructions Date of Service Jan 08, 2018. Admission Reason for Admission: Pulmonary Embolism Discharge Discharge Diagnosis / Problem: Pulmonary Embolism (blood clot in lung), chronic respiratory failure Discharge Goals Goal(s): Decrease discomfort, Improve function, Diagnostic testing, Therapeutic intervention Activity Recommendations Activity Limitations: resume your previous activity . Instructions / Follow-Up Instructions / Follow-Up Patient to be discharged to [facility] today - January 08 * Patient has significant pulmonary fibrosis and presented with acute pulmonary embolism. * Chronically on 4L of O2 at baseline. * Requiring 5-6L of O2 via nasal cannula - patient gets hypoxic with any type of exertion and even while talking. Permissive Hypoxia. * Patient will dip with his O2 saturation into 70s-80s; should use SL Roxanol with exertion. If hypoxic, may need oxymask as well as nasal cannula O2. * Should have discussion regarding hospice as soon as possible. POLST form signed regarding comfort needs only. Hospice agency - will be difficult for home hospice. * For now, Pradaxa for PE Current Hospital Diet Patient's current hospital diet: AHA Diet (Heart Healthy), Diabetes Type 2 Diet Discharge Diet Recommended Diet: AHA Diet (Heart Healthy), Diabetes Type 2 Diet Pending Studies Studies pending at discharge: no Laboratory Results Hemoglobin A1c Test 01/02/18 05:54 Range/Units Estimated Average Glucose 200 mg/dl Hemoglobin A1c 8.6 H 4.5-5.6 % Medical Emergencies . Who to Call and When: Medical Emergencies: If at any time you feel your situation is an emergency, please call 911 immediately. . Non-Emergent Contact Non-Emergency issues call your: Primary Care Provider . . "Provider Documentation" section prepared by Arjun Duarte. .
--- NOTE | 2018-01-08 09:39 | Discharge Summary ---
Discharge Summary Date of Service Jan 08, 2018. Discharge Summary Admission Date: Jan 01, 2018 at 18:51 Discharge Date: Jan 08, 2018 Discharge Disposition: residential facility Principal Diagnosis: Acute Pulmonary Embolism Severe Pulmonary Fibrosis Acute on Chronic Hypoxic Respiratory Failure End stage lung disease NSTEMI Medication Reconciliation New Medications: Benzonatate (Benzonatate) 100 Mg Cap 200 MG PO TID for 10 Days, #60 CAP Dabigatran Elexilate (Pradaxa) 150 Mg Cap 150 MG PO BID for 30 Days, #60 TABS Ipratropium [place] (Ipratropium [place]) 0.5 Mg/2.5 Ml Nebu 0.5 MG INH Q4R for 30 Days, #450 ML Levalbuterol (Levalbuterol) 1.25 Mg/0.5 Ml Nebu 1.25 MG INH Q4R for 30 Days, #90 ML Morphine Sulfate (Morphine Sulfate) 10 Mg/0.5 Ml Soln 5 MG PO Q4 PRN for Pain for 10 Days, #15 ML Prednisone (Prednisone) 50 Mg Tab 50 MG PO DAILY for 7 Days, #7 TAB Continued Medications: Aspirin (Aspirin EC Low Dose) 81 Mg Ectab 81 MG PO DAILY Carvedilol (Coreg) 12.5 Mg Tab 12.5 MG PO BID for 90 Days, #180 TAB 1 Refill Clonidine Hcl (Catapres) 0.1 Mg Tab 1 TAB PO BID for 30 Days, #60 TAB 1 Refill Insulin Aspart (Novolog Flexpen) 100 Units/Ml Inj 0 SQ UD per sliding scale Pantoprazole (Protonix) 40 Mg Tab 40 MG PO DAILY, #30 TAB Pravastatin Sodium (Pravastatin Sodium) 80 Mg Tab 80 MG PO DAILY for 30 Days, #30 TAB 5 Refills Discontinued Medications: Albuterol Sulf (Proventil 0.083% 2.5MG/3ML) 2.5 Mg/3 Ml Nebu 2.5 MG INH Q4H PRN for sob/wheezing, EA Albuterol Sulfate (Proair Respiclick) 108 Mcg/Act Aer 2 PUFFS INH QID PRN for sob/wheezing Admission Information HPI (per Admitting provider): This is a 77-year-old male with past medical history of GI bleed, CHF with grade 1 diastolic dysfunction, chronic respiratory failure/pulmonary fibrosis on 3 L oxygen continuous, 3 CKD stage III. Patient was recently admitted to [facility] from December 21 - December 28 for lower GI bleed. Possible diverticular bleed. Colonoscopy was not done as patient became hypoxic prior to the procedure. Patient presents to the ER with severe respiratory distress, tachypnea, hypoxia- found to be 87% saturation while on 3 L by nasal cannula Patient was placed on BiPAP Per patient's , since being discharged from hospital, patient continued to be very weak, had dizziness spell worsening of shortness of breath with minimum activity. Stayed in his recliner most part of the day, only would get up to use the bathroom. This morning patient was found struggling to breathe, tachypneic, diaphoretic. Patient's increased the oxygen supply to 6 L, still remains in significant respiratory distress Brought to ER In the ER with 4 L nasal cannula patient's initial pulse oximetry was 66%, placed on BiPAP, pulse ox improved to more than 90% patient was tachypneic with respiratory rate 48, tachycardic CT chest with contrast done showed bilateral pulmonary emboli. Physical Exam (per Admitting): General Appearance: + moderate distress Head: normocephalic, atraumatic Eyes: sclerae normal ENT: + pertinent finding (On BiPAP) Neck: trachea midline Respiratory/Chest: + respiratory distress, + decreased breath sounds ( Decreased bowel sound), + accessory muscle use, + wheezing Cardiovascular: + tachycardia Abdomen/GI: non tender, soft Extremities/Musculoskelatal: + pedal edema Neurologic/Psych: alert Hospital Course This is a 77 year old male with a PMH of interstitial lung disease and pulmonary fibrosis with chronic respiratory failure on 3L of continuous O2, CKD stage 3, HTN, HLD, hx. of CVA - presents with worsening shortness of breath and subsequently found to have acute R lower lobe pulmonary embolism Acute on Chronic Hypoxic Respiratory Failure Acute Pulmonary Embolism Pulmonary Fibrosis/Interstitial Lung Disease 01/08 - chronically respiratory failure - becomes very hypoxic at almost all times - appreciate palliative care consultation - will d/c to SNF and then transition to hospice as soon as possible - will d/c with SL Roxanol 01/07 - currently on prednisone for pulmonary fibrosis - Pradaxa for pulmonary embolism - still desaturates with any type of exertion - will now try morphine for palliation of SOB - palliative care consulted - patient should be on hospice 3/28 - currently requiring 6L of O2 at baseline - abx. stopped - continue Pradaxa - change Solu-medrol to prednisone 01/05 - chronically uses around 3L of O2 at home; sometimes uses 4L - currently he is requiring 6L via NC - intermittently requiring bipap - started on Pradaxa for PE, which we can continue; now off of the heparin drip - outpatient pulmonary input needed - follows with pulmonology in [facility] - doubt pneumonia - will stop Imipenem - continue IV steroids for now, transition to PO in 1-2 days - nebulizers as needed NSTEMI - elevated troponin, peaked >2 - likely due to heart strain from the pulmonary embolism - preserved LVEF - was on IV heparin, now off of it - aspirin held due to Pradaxa started - continue b-gallo (Coreg) and statin Recent GI bleed - recent admission with possible acute diverticular bleed - now started on Pradaxa to treat the PE - monitor H/H close and monitor for any GI bleeding CKD stage III - creat at baseline Hyperglycemia secondary to Steroid Use - insulin sliding scale - Lantus changed around today; appreciate glycemic control pharmacist HTN - continue Coreg - stop clonidine on discharge DVT ppx - Pradaxa DNR Total time spent on discharge = 50 minutes This includes examination of the patient, discharge planning, medication reconciliation, and communication with other providers. Discharge Instructions Patient to be discharged to [facility] today - January 08 * Patient has significant pulmonary fibrosis and presented with acute pulmonary embolism. * Chronically on 4L of O2 at baseline. * Requiring 5-6L of O2 via nasal cannula - patient gets hypoxic with any type of exertion and even while talking. Permissive Hypoxia. * Patient will dip with his O2 saturation into 70s-80s; should use SL Roxanol with exertion. If hypoxic, may need oxymask as well as nasal cannula O2. * Should have discussion regarding hospice as soon as possible. POLST form signed regarding comfort needs only. Hospice agency - will be difficult for home hospice. * For now, Pradaxa for PE
--- NOTE | 2018-01-08 10:57 | PROGRESS NOTE ---
DATE: 01/08/2018 PROBLEM LIST: Includes: 1. Acute pulmonary embolism in the right lower lobe. 2. Progressive pulmonary fibrosis. 3. Intractable cough. 4. Mild mediastinal and right hilar adenopathy. SUBJECTIVE: The patient continues to be short of breath with exertion, any type of exertion will make him dyspneic. According to report from Dr. Villafana and nursing staff, any type of exertion will cause desaturations to drop down into the 60-70% range even on 5 liters. He states that his cough is a little bit better today. He states that he did have a coughing episode approximately 1:00 this morning but that resolved without any difficulty. He states that he may be a little bit less short of breath today. He denies any pleuritic chest pain at this time. He denies any chest pain in general, no palpitations, no angina. Denies any nausea or vomiting. He states that he has had a lot of gas, which he has been passing. He states his bowels have not moved today but they did move yesterday. No swelling in his extremities. OBJECTIVE: GENERAL: The patient is a 77-year-old male in no acute distress. He is alert and oriented x3. Mood and affect are flat to slightly depressed. He does have oxygen on. He is able to complete short sentences. VITAL SIGNS: Temp 36.5, pulse 76, respirations 20, blood pressure is 164/93, pulse ox 99% on 5 liters. HEENT: Normocephalic. [place] somewhat tachycardic gingival and buccal mucosa. NECK: Short and thick. The patient is lying flat, do not appreciate any venous distention. No adenopathy palpated. CHEST: The patient has diminished breath sounds bilaterally. The patient has Velcro rales diffusely bilaterally. CARDIOVASCULAR: Regular rate and rhythm. No murmurs, gallops or rubs. ABDOMEN: Bowel sounds are present. Abdomen is soft, nontender. No guarding, rigidity or organomegaly. EXTREMITIES: No erythema or edema at this time. No cyanosis or clubbing noted. NEUROLOGIC: Cranial nerves II through XII grossly intact. No focal deficit noted. LABORATORY DATA: No new lab data. IMAGING DATA: No new imaging data. IMPRESSION: 1. This unfortunate 77-year-old male with longstanding history of progressive pulmonary fibrosis in which the patient had a biopsy done in [place] and was on prednisone long-term. He developed some acute shortness of breath and was found to have a pulmonary embolism in the right lower lobe and at this time he is being anticoagulated for this. At this point, there is not really whole lot from a pulmonary standpoint in addition to offer, he basically has end-stage disease. According to nursing, the patient is going to be transferred to group home facility. In reviewing Dr. Villafana's note, I do agree that the patient would probably benefit from some morphine IV given about 5 minutes or so before moving the patient. The patient expressed significant anxiety about being moved today and wanted something to help relax him because he has such difficulty breathing with any type of movement and would like to get the patient as comfortable as possible. 2. Progressive pulmonary fibrosis. The patient is still on a steroid for this. 3. Intractable cough. This is improved. 4. Mediastinal and hilar adenopathy secondary to lung disease. At this point, the patient is being transferred to a group home facility today. At this point, would followup with recommendations as above as well as continue his regular pulmonary toilet. YVONNE
[2018-01-08] MEDS ORDERED: INSULIN HUMAN NPH SC SCH ×2 (11:30)
== END 2018-01-08 15:25 | DRG 175 ==
LOC: EDBD 15:50 → C.EDB 15:50 → C.MSICU 18:51 → ENRESERV 19:57 → C.2E 01-03 16:10
PROVIDERS: ADMIT Hospitalist; ATTEND Family Medicine
DX: I26.99 Other pulmonary embolism without acute cor pulmonale (principal); J96.21 Acute and chronic respiratory failure with hypoxia; I10 Essential (primary) hypertension; J84.9 Interstitial pulmonary disease, unspecified; K74.60 Unspecified cirrhosis of liver; N18.3 Chronic kidney disease, stage 3 (moderate); Z86.711 Personal history of pulmonary embolism; I50.9 Heart failure, unspecified; J84.10 Pulmonary fibrosis, unspecified; E09.9 Drug or chemical induced diabetes mellitus without complications; T38.0X5A Adverse effect of glucocorticoids and synthetic analogues, initial encounter; Y92.009 Unspecified place in unspecified non-institutional (private) residence as the place of occurrence of the external cause; I21.A1 Myocardial infarction type 2